=== PATIENT | male | born 1965 | race Caucasian/White ===

== ENCOUNTER 2017-08-12 15:41 | Emergency (ER) | payer OTHER ==
[~2017-08-12] VITALS: Ht 174 cm; Wt 51.0 kg
[~2017-08-12 15:41] MED LIST: ALBUAER19 INH; FLNIN NAE; LRT5 PO; TRVHP PO; [UNRECOGNIZED DRUG - CODE] TOP; viramune PO
[2017-08-12 15:47] VITALS: TEMP 37; Ht 174 cm; Wt 51.0 kg
[2017-08-12] MEDS ORDERED: ASPIRIN 81 MG CHEW PO STA (16:27)
[2017-08-12 16:39] VITALS: O2SAT 99
[2017-08-12 16:45] LABS: BASO % 0.4 %; BASO ABS # 0.02 K/uL (0-0.2); EOS ABS # 0.05 K/uL (0-0.5); HEMATOCRIT 52.9 % (42-52); HEMOGLOBIN 18.5 g/dL (14.0-18.0); IG# 0.01 K/uL (0.00-0.02); LYMPH % 26.2 %; LYMPH ABS # 1.36 K/uL (1.2-3.4); MEAN CELL VOLUME 105.2 fL (80-100); MEAN CORPUSCULAR HEMOGLOBIN 36.8 pg (25-34); MEAN PLATELET VOLUME 8.7 fL (7.4-10.4); MONO % 7.9 %; MONO ABS # 0.41 K/uL (0.11-0.59); NEUT % 64.3 %; NEUT ABS # 3.35 K/uL (1.4-6.5); PLATELET COUNT 146 K/uL (130-400); RED CELL DISTRIBUTION WIDTH CV 11.8 % (11.5-14.5); RED CELL DISTRIBUTION WIDTH SD 45.5 fL (36.4-46.3)
[2017-08-12] MEDS ORDERED: HYDR-5688 PO (16:49)
[2017-08-12] MEDS ORDERED: ELVI1TAB2 PO (16:49)
[2017-08-12 17:03] LABS: BLOOD UREA NITROGEN 7 mg/dl (7-18); CALCIUM 8.5 mg/dl (8.5-10.1); CARBON DIOXIDE 31 mmol/L (21-32); CREATININE 0.78 mg/dl (0.60-1.40); GLUCOSE 85 mg/dl (70-99); POTASSIUM 3.7 mmol/L (3.5-5.1); SODIUM 140 mmol/L (136-145)
--- NOTE | 2017-08-12 17:13 | DIAGNOSTIC IMAGING REPORT ---
CHEST 2 VIEWS ROUTINE CLINICAL HISTORY: 52 years-old Male presenting with left-sided cp. TECHNIQUE: PA and lateral views of the chest were obtained. COMPARISON: None. FINDINGS: Cardiomediastinal silhouette normal. Hyperinflation of the lungs. No focal opacity. No large effusion or pneumothorax. Osseous structures normal. Upper abdomen normal. IMPRESSION: 1. No acute cardiopulmonary disease. Electronically signed by: Mu Braxton M.D. 08/12/2017 5:12 PM Dictated Date/Time: 08/12/2017 5:11 PM
--- NOTE | 2017-08-12 18:13 | EMERGENCY ROOM VISIT NOTE ---
History Report prepared by Itzel: Isak North Under the Supervision of: Dr. Erik Lopez M.D. First contact with patient: 16:10 Chief Complaint: CARDIAC ASSESSMENT Stated Complaint: HEART PAIN, FEELS LIKE SOMEONE IS SQUEEZING IT History of Present Illness The patient is a 52 year old male who presents to the Emergency Room with complaints of constant chest pain beginning seven hours ago. He describes his pain as a "tightness". The patient is HIV positive and notes that he was recently placed on a new medication for this 2-3 weeks ago. He is compliant with medications, and notes that his viral load is undetectable. He noticed his symptoms this morning while waking up. The patient also complains of a faint generalized rash, but thinks this could be related to his detergent. He denies shortness of breath, leg pain, or cough. He notes that he had a cardiac work-up last year. The patient denies recent travel. He does not use supplemental hormones. He denies recent surgery. Source of History: patient Onset: seven hours ago Position: chest Quality: other ("tightness") Timing: constant Associated Symptoms: + rash (generalized), No cough, No SOB Note: Negative: leg pain. Review of Systems See HPI for pertinent positives and negatives. A total of ten systems were reviewed and were otherwise negative. Past Medical & Surgical Medical Problems: (1) Chronic back pain (2) Chronic leg pain (3) Degenerative disc disease (4) HIV positive Family History No pertinent family history stated. Social History Smoking Status: Current Every Day Smoker Occupation Status: employed Current/Historical Medications Scheduled Axbkbdwzykpp-Cxenwqopse-Wikiqs (Stribild), 1 TAB PO DAILY Scheduled PRN Hydrocodone/Acetaminophen 5MG/325MG ([place] 5MG/325MG), 1 TABLET PO Q8 PRN for Pain Allergies Coded Allergies: Ciprofloxacin (Verified Allergy, Intermediate, Hives, 08/12/17) Sulfa Antibiotics (Verified Allergy, Unknown, Severe hives, 08/12/17) Physical Exam Vital Signs Date Time Temp Pulse Resp B/P (MAP) Pulse Ox O2 Delivery O2 Flow Rate FiO2 08/12/17 20:46 80 16 150/90 97 08/12/17 20:04 60 08/12/17 19:50 58 16 156/87 98 Room Air 08/12/17 17:35 77 15 169/103 100 Room Air 08/12/17 16:39 99 Room Air 08/12/17 16:05 74 08/12/17 15:47 37.0 82 20 184/108 99 Room Air Physical Exam Physical Exam GENERAL: He is oriented to person, place, and time. He appears well-developed and well-nourished. He does not appear distressed. ____ HENT: Exam performed. Head: Normocephalic and atraumatic. Right Ear: External ear normal. No mastoid tenderness. Left Ear: External ear normal. No mastoid tenderness. Mouth/Throat: The oropharynx is clear and moist. No trismus in the jaw. No dental abscesses or uvula swelling. No oropharyngeal exudate or tonsillar abscesses. ____ EYES: Conjunctivae and EOM are normal. Pupils are equal, round, and reactive to light. Right eye exhibits no discharge. Left eye exhibits no discharge. No scleral icterus. ____ NECK: Normal range of motion. Neck supple. No JVD present. No spinous process tenderness present. No carotid bruit present. No rigidity. No tracheal deviation and normal range of motion present. No Brudzinski's sign and no Kernig 's sign noted. ____ CV: Normal rate, regular rhythm, normal heart sounds and intact distal pulses. There is no peripheral edema. Palpable radial pulses bue. ____ PULM/CHEST: Effort normal and breath sounds normal. No respiratory distress. No stridor. He has no wheezes. He has no rales. Chest Wall: He exhibits no tenderness. ____ ABD: The abdomen is soft. Bowel sounds are normal. He has no distension. No mass is present. There is no tenderness. There is no rebound, no guarding, no Forte's sign and no tenderness at McBurney's point. Rovsig negative MUSC/SKEL: Normal range of motion. There is no peripheral edema, tenderness or deformity. LYMPH: No cervical adenopathy. ____ NEURO: He is alert and oriented to person, place, and time. He has normal strength. No cranial nerve deficit or sensory deficit. Coordination and gait normal. GCS eye subscore is 4. GCS verbal subscore is 5. GCS motor subscore is 6. Cerebellar tests wnl. ____ SKIN: Skin is warm and dry. He is not diaphoretic. Small circular plaques over the lower extremities and trunk without fluctuance or erythema. Looks like contact dermatitis. ____ PSYCH: He has a normal mood and affect. His behavior is normal. Judgment and thought content normal. ____ Medical Decision & Procedures ER Provider Diagnostic Interpretation: Radiology results as stated below per my review and radiologist interpretation: CHEST 2 VIEWS ROUTINE FINDINGS: Cardiomediastinal silhouette normal. Hyperinflation of the lungs. No focal opacity. No large effusion or pneumothorax. Osseous structures normal. Upper abdomen normal. IMPRESSION: 1. No acute cardiopulmonary disease. Electronically signed by: Mu Braxton M.D. 08/12/2017 5:12 PM Laboratory Results 08/12/17 16:40 Red Blood Count 5.03, Mean Corpuscular Volume 105.2, Mean Corpuscular Hemoglobin 36.8, Mean Corpuscular Hemoglobin Concent 35.0, Mean Platelet Volume 8.7, Neutrophils (%) (Auto) 64.3, Lymphocytes (%) (Auto) 26.2, Monocytes (%) ( Auto) 7.9, Eosinophils (%) (Auto) 1.0, Basophils (%) (Auto) 0.4, Neutrophils # ( Auto) 3.35, Lymphocytes # (Auto) 1.36, Monocytes # (Auto) 0.41, Eosinophils # ( Auto) 0.05, Basophils # (Auto) 0.02 08/12/17 16:40 Test 08/12/17 16:36 08/12/17 16:40 08/12/17 19:38 D-Dimer 470 ug/L FEU (0-500) White Blood Count 5.20 K/uL (4.8-10.8) Red Blood Count 5.03 M/uL (4.7-6.1) Hemoglobin 18.5 g/dL (14.0-18.0) Hematocrit 52.9 % (42-52) Mean Corpuscular Volume 105.2 fL (80-100) Mean Corpuscular Hemoglobin 36.8 pg (25-34) Mean Corpuscular Hemoglobin Concent 35.0 g/dl (32-36) Platelet Count 146 K/uL (130-400) Mean Platelet Volume 8.7 fL (7.4-10.4) Neutrophils (%) (Auto) 64.3 % Lymphocytes (%) (Auto) 26.2 % Monocytes (%) (Auto) 7.9 % Eosinophils (%) (Auto) 1.0 % Basophils (%) (Auto) 0.4 % Neutrophils # (Auto) 3.35 K/uL (1.4-6.5) Lymphocytes # (Auto) 1.36 K/uL (1.2-3.4) Monocytes # (Auto) 0.41 K/uL (0.11-0.59) Eosinophils # (Auto) 0.05 K/uL (0-0.5) Basophils # (Auto) 0.02 K/uL (0-0.2) RDW Standard Deviation 45.5 fL (36.4-46.3) RDW Coefficient of Variation 11.8 % (11.5-14.5) Immature Granulocyte % (Auto) 0.2 % Immature Granulocyte # (Auto) 0.01 K/uL (0.00-0.02) Anion Gap 4.0 mmol/L (3-11) Est Creatinine Clear Calc Drug Dose 79.0 ml/min Estimated GFR () 119.4 Estimated GFR (Non- 103.1 BUN/Creatinine Ratio 9.5 (10-20) Calcium Level 8.5 mg/dl (8.5-10.1) Troponin I < 0.015 ng/ml (0-0.045) Laboratory results reviewed by me Medications Administered Medications (Trade) Dose Ordered Sig/Barney Route Start Time Stop Time Status Last Admin Dose Admin Aspirin (Aspirin Chew) 324 mg NOW STAT PO 08/12/17 16:27 08/12/17 16:28 DC 08/12/17 16:31 324 MG ECG Per My Interpretation Indication: chest pain Rate (beats per minute): 79 Rhythm: sinus rhythm Findings: other (WA, QRS, and QTC intervals within normal limits. No ST elevations or depressions. ) ED Course 1613: The patient was evaluated in room B4B. A complete history and physical exam was performed. 1626: Ordered Aspirin Chew 324 mg PO. EMR reviewed and patient had a negative echo in 2013. No history of having stress test per the patient. 1811: Vital signs stable. EKG chest x-ray and labs within normal limits. Patient was offered inpatient observation for rule out ACS, however he declined. He states he prefers to have repeat troponin drawn and if negative will follow-up with cardiology for stress test. Repeat troponin to be drawn at 1940. Medical Decision Vital signs stable. EKG chest x-ray and labs within normal limits. Patient was offered inpatient observation for rule out ACS, however he declined. He states he prefers to have repeat troponin drawn and if negative will follow-up with cardiology for stress test. Repeat troponin to be drawn at 1940. Medication Reconcilliation Current Medication List: was personally reviewed by me Blood Pressure Screening Patient's blood pressure: Elevated blood pressure Blood pressure disposition: Referred to PCP Impression Primary Impression: Chest pain Scribe Attestation The scribe's documentation has been prepared under my direction and personally reviewed by me in its entirety. I confirm that the note above accurately reflects all work, treatment, procedures, and medical decision making performed by me. Departure Information Referrals Milton Luna D.O. (PCP) Patient Instructions My [facility] Problem Qualifiers Primary Impression: Chest pain Chest pain type: unspecified Qualified Codes: R07.9 - Chest pain, unspecified
--- NOTE | 2017-08-12 18:51 | EMERGENCY ROOM VISIT NOTE ---
ED Visit Note First contact with patient: 18:51 Patient signed out to me at change of shift. History and physical verified by me. Patient is awaiting repeat troponin and EKG at 1740. The patient's repeat EKG shows a normal sinus rhythm at a normal EKG no ST elevation or depression and it is unchanged from the previous one. In addition the patient also had a d -dimer drawn because I feel he is at high risk of blood clots due to the increase hemoglobin level however his d-dimer is normal. I stressed to the patient that he is a high risk patient due to the medications he is on as well as the elevation in his hemoglobin however he wishes to be discharged home for follow-up with cardiology. I stressed no strenuous activity until that follow- up and to return to the emergency department if his symptoms worsen. His repeat troponin is 0. The patient has demonstrated no significant defect in the decision-making capacity to make choices. The encounter had a good level of communication with language the patient can easily understand. I feel trust was present and conveyed that our action/intentions were the best interest of the patient. The patient was given all relevant information and reiterated the explained risks and benefits. The patient explained the reasoning for refusing treatment clearly. The patient possesses and expresses a set of values and goals, the ability to communicate and understand, and an ability to reason and deliberate. Despite acting emphatically, attentively and with the utmost patient's the patient declined further treatment. I offered options, negotiated, and explored every reasonable choice. I must respect the patient's autonomy and that they feel that their choices are best for them despite the associated risks of leaving without completing the evaluation. The patient was informed about the findings as listed above. All questions were answered and he was pleased with the treatment. Return instructions were outlined and the patient was discharged in stable condition. Problem List Medical Problems: (1) Chronic back pain Status: Chronic (2) Chronic leg pain Status: Chronic (3) Degenerative disc disease Status: Chronic (4) HIV positive Status: Chronic Current/Historical Medications Scheduled Wnxugamwqppc-Osbzjmzxqq-Cobcnw (Stribild), 1 TAB PO DAILY Scheduled PRN Hydrocodone/Acetaminophen 5MG/325MG ([place] 5MG/325MG), 1 TABLET PO Q8 PRN for Pain Allergies Coded Allergies: Ciprofloxacin (Verified Allergy, Intermediate, Hives, 08/12/17) Sulfa Antibiotics (Verified Allergy, Unknown, Severe hives, 08/12/17) Vital Signs Date Time Temp Pulse Resp B/P (MAP) Pulse Ox O2 Delivery O2 Flow Rate FiO2 08/12/17 19:50 58 16 156/87 98 Room Air 08/12/17 17:35 77 15 169/103 100 Room Air 08/12/17 16:39 99 Room Air 08/12/17 16:05 74 08/12/17 15:47 37.0 82 20 184/108 99 Room Air Laboratory Results 08/12/17 16:40 Red Blood Count 5.03, Mean Corpuscular Volume 105.2, Mean Corpuscular Hemoglobin 36.8, Mean Corpuscular Hemoglobin Concent 35.0, Mean Platelet Volume 8.7, Neutrophils (%) (Auto) 64.3, Lymphocytes (%) (Auto) 26.2, Monocytes (%) ( Auto) 7.9, Eosinophils (%) (Auto) 1.0, Basophils (%) (Auto) 0.4, Neutrophils # ( Auto) 3.35, Lymphocytes # (Auto) 1.36, Monocytes # (Auto) 0.41, Eosinophils # ( Auto) 0.05, Basophils # (Auto) 0.02 08/12/17 16:40 Test 08/12/17 16:36 08/12/17 16:40 08/12/17 19:38 D-Dimer 470 ug/L FEU (0-500) White Blood Count 5.20 K/uL (4.8-10.8) Red Blood Count 5.03 M/uL (4.7-6.1) Hemoglobin 18.5 g/dL (14.0-18.0) Hematocrit 52.9 % (42-52) Mean Corpuscular Volume 105.2 fL (80-100) Mean Corpuscular Hemoglobin 36.8 pg (25-34) Mean Corpuscular Hemoglobin Concent 35.0 g/dl (32-36) Platelet Count 146 K/uL (130-400) Mean Platelet Volume 8.7 fL (7.4-10.4) Neutrophils (%) (Auto) 64.3 % Lymphocytes (%) (Auto) 26.2 % Monocytes (%) (Auto) 7.9 % Eosinophils (%) (Auto) 1.0 % Basophils (%) (Auto) 0.4 % Neutrophils # (Auto) 3.35 K/uL (1.4-6.5) Lymphocytes # (Auto) 1.36 K/uL (1.2-3.4) Monocytes # (Auto) 0.41 K/uL (0.11-0.59) Eosinophils # (Auto) 0.05 K/uL (0-0.5) Basophils # (Auto) 0.02 K/uL (0-0.2) RDW Standard Deviation 45.5 fL (36.4-46.3) RDW Coefficient of Variation 11.8 % (11.5-14.5) Immature Granulocyte % (Auto) 0.2 % Immature Granulocyte # (Auto) 0.01 K/uL (0.00-0.02) Anion Gap 4.0 mmol/L (3-11) Est Creatinine Clear Calc Drug Dose 79.0 ml/min Estimated GFR () 119.4 Estimated GFR (Non- 103.1 BUN/Creatinine Ratio 9.5 (10-20) Calcium Level 8.5 mg/dl (8.5-10.1) Medications Administered Medications (Trade) Dose Ordered Sig/Barney Route Start Time Stop Time Status Last Admin Dose Admin Aspirin (Aspirin Chew) 324 mg NOW STAT PO 08/12/17 16:27 08/12/17 16:28 DC 08/12/17 16:31 324 MG Departure Information Referrals Milton Luna D.O. (PCP) Patient Instructions My [facility]
[2017-08-12 20:46] VITALS: BP 150/90; PULSE 80; O2SAT 97
== END 2017-08-12 20:46 | disposition home or self-care (01) ==
LOC: C.EDB 15:43
DX: R07.9 Chest pain, unspecified (principal); M54.9 Dorsalgia, unspecified; M79.606 Pain in leg, unspecified; G89.29 Other chronic pain; B20 Human immunodeficiency virus [HIV] disease; F17.210 Nicotine dependence, cigarettes, uncomplicated; Z79.899 Other long term (current) drug therapy; Z88.1 Allergy status to other antibiotic agents

== ENCOUNTER 2018-07-17 12:37 | Inpatient (IN) ==
[2018-07-17] MEDS ORDERED: SODIUM CHLORIDE 0.9% 1000ML 1,000 ML IV SCH (13:00)
[2018-07-17] MEDS ORDERED: MoRPHine SULFATE 4 MG/ML 1 ML CARP\\VIAL IV STA ×2 (13:26→14:54)
[2018-07-17 13:28] LABS: Basophils # (auto) 0.01 K/uL (0-0.2); Basophils % (auto) 0.2 %; Eosinophils # (auto) 0.09 K/uL (0-0.5); Eosinophils % (auto) 1.6 %; Hematocrit (blood only) 53.7 % (42-52); Hemoglobin 19.6 g/dL (14.0-18.0); Immature Granulocytes # (auto) 0.01 K/uL (0.00-0.02); Immature Granulocytes % (auto) 0.2 %; Lymphocytes % (auto) 27.4 %; Mean Corpuscular Hgb Conc 36.5 g/dL (32-36); Mean Platelet Volume 8.6 fL (7.4-10.4); Monocytes # (auto) 0.59 K/uL (0.11-0.59); Monocytes % (auto) 10.8 %; Neutrophils # (auto) 3.27 K/uL (1.4-6.5); Neutrophils % (auto) 59.8 %; Platelet Count 142 K/uL (130-400); RDW Coefficient of Variation 13.5 % (11.5-14.5); RDW Standard Deviation 48.5 fL (36.4-46.3); Red Blood Count 5.37 M/uL (4.7-6.1); White Blood Count 5.47 K/uL (4.8-10.8)
[2018-07-17 13:44] LABS: Albumin Level 2.7 gm/dl (3.4-5.0); BUN Creatinine Ratio 7.3 (10-20); Calcium 8.3 mg/dl (8.5-10.1); Creatinine Clr Calc Pharmacy 80.5 ml/min; Est GFR (African American) 122.6; Est GFR (Non-African American) 105.8; Potassium 3.1 mmol/L (3.5-5.1)
[2018-07-17 13:47] LABS: Albumin Globulin Ratio 0.5 (0.9-2); Bilirubin,Total 0.9 mg/dl (0.2-1); Globulin 5.8 gm/dl (2.5-4.0); Total Protein 8.5 gm/dl (6.4-8.2)
--- NOTE | 2018-07-17 14:13 | Ultrasound Report ---
US venous doppler LE RT CLINICAL HISTORY: pain rle PAIN. EDEMA. COMPARISON STUDY: No previous studies for comparison. FINDINGS: Real-time and color flow Doppler imaging were performed. Flow was seen within the femoral, popliteal and calf veins with no intraluminal thrombus demonstrated. The saphenous vein is patent. IMPRESSION: No evidence of deep venous thrombosis. The above report was generated using voice recognition software. It may contain grammatical, syntax or spelling errors. Electronically signed by: Gustavo Ryan M.D. 07/17/2018 2:12 PM
--- NOTE | 2018-07-17 14:40 | Ultrasound Report ---
US arterial duplex LE RT CLINICAL HISTORY: r toe black COMPARISON STUDY: Outside hospital ankle-brachial index 06/30/2018. FINDINGS: The right left ankle-brachial index measured 1.1. Normal velocities and triphasic waveforms within the right common femoral artery and proximal to mid superficial femoral artery. A long segmen t of moderate atherosclerotic plaque within the distal superficial femoral artery with associated maria isabel vated peak systolic velocities which measure up to 307 cm/s. This is consistent with hemodynamically significant stenosis. No arterial occlusion. There are monophasic low velocity waveforms seen within the right popliteal artery and calf arteries due to the upstream stenosis. There are also low velocit y monophasic waveforms seen within the dorsalis pedis artery. IMPRESSION: A long segment of hemodynamically significant stenosis seen within the distal right supe rficial femoral artery due to the moderate atherosclerotic plaque. No evidence for arterial occlusion . Electronically signed by: Amari Robins M.D. 07/17/2018 2:39 PM
[2018-07-17 15:28] LABS: Partial Thromboplastin Time 27.5 Seconds (21.0-31.0); Prothrombin Time 10.7 Seconds (9.0-12.0)
[2018-07-17] MEDS ORDERED: HEPARIN SOD (PORCINE) 1000 UNIT/ML 10 ML VIAL IV STA (15:35)
[2018-07-17] MEDS ORDERED: HEPARIN STANDARD DEXTROSE 25,000 UNITS/500 ML IV SCH (15:45)
[2018-07-17] MEDS ORDERED: OPTIRAY 320 125ml IV PRN (17:01)
--- NOTE | 2018-07-17 17:02 | Emergency Department Note ---
Entered by Frankie Spencer acting as a scribe for Cezar Stephen DO History of Present Illness General Chief complaint: Foot Injury/Pain Stated complaint: NUMBNESS, PAIN IN BOTH FEET Source: patient History of Present Illness Provider complaint: foot pain Onset (ago): week(s) 1 Location: foot (bilateral) Radiation: other (left lower extremity from knee to foot) Pain Consistency: + other (worsening) Maximum Pain Intensity: 10 Current Pain Intensity: 7 Quality: + other (pain) Associated symptoms: + other (discoloration of big toe) The patient is a 53 year old male who presents to the Emergency Room with complaints of bilateral foot pain that has been worsening over the past month. The patient reports that the pain on his left leg ranges from his knee to his foot and states that the pain on his right leg is just in his right foot, but is worse in severity than the left. He states that he has had many tests done at his PCP's office where they found a blood clot. He reports that last night he could not walk and reports that the big toe on his right foot is very painful and discolored. He rates his pain as a 7/10 in severity. He reports that he has a cyst in his right foot as well. The patient admits to being a smoker and states he smokes about a half a pack a day. Home Medications Home Medications Medication Instructions Recorded Confirmed Type [id number]-[id number]-tenofo disop 1 tab PO HS 05/30/18 07/17/18 History [Stribild] hydrocodone-acetaminophen 1 tab PO Q8H PRN 05/30/18 07/17/18 History aspirin 81 mg PO QAM 07/17/18 07/17/18 History cyanocobalamin (vitamin B-12) 1,000 mcg PO DAILY 07/17/18 07/17/18 History gabapentin 100 mg PO TID 07/17/18 07/17/18 History Allergies Allergy/AdvReac Type Severity Reaction Status Date / Time Sulfa (Sulfonamide Allergy Severe Severe Verified 07/17/18 14:14 Antibiotics) hives Cipro Allergy Intermediate Hives Verified 08/12/17 16:46 ciprofloxacin Allergy Intermediate Hives Verified 07/17/18 14:14 Past Med/Surg History Medical History Tobacco abuse (Chronic) Chronic leg pain (Chronic) Chronic back pain (Chronic) HIV positive (Chronic) Surgical History H/O inguinal hernia repair (Chronic) Social History Preferred Language: Korean Feels Safe at Home: Yes Smoking Status: Current every day smoker Review of Systems See HPI for pertinent positives & negatives. and A total of 10 systems reviewed and were otherwise negative Physical Exam Vital Signs Vital Signs - 24 hr 07/17/18 12:39 07/17/18 13:46 07/17/18 15:00 Temperature 37.0 C Temperature Source Oral Sepsis Recent Fever Within 48 Hours No Sepsis New/Unexplained Change in Mental Status No Sepsis Action Taken by Nursing No Action Required Pulse Rate 109 H Pulse Rate [Finger] 87 80 Pulse Rhythm [Finger] Pulse Strength Normal Pulse Strength [Finger] Respiratory Rate 20 18 18 Respiratory Effort / Characteristics Non-Labored Spontaneous Non-Labored Spontaneous Non-Labored Spontaneous Respiratory Depth Normal Normal Normal Respiratory Pattern Regular Regular Blood Pressure 143/89 H Blood Pressure [Left Arm] 157/93 H 136/91 Blood Pressure Mean 107 Blood Pressure Mean [Left Arm] 114 106 Blood Pressure Position Sitting Blood Pressure Position [Left Arm] Sitting Sitting Pulse Oximetry 100 97 100 Oxygen Delivery Method Room Air Room Air Room Air 07/17/18 16:00 Temperature Temperature Source Sepsis Recent Fever Within 48 Hours Sepsis New/Unexplained Change in Mental Status Sepsis Action Taken by Nursing Pulse Rate Pulse Rate [Finger] 86 Pulse Rhythm [Finger] Regular Pulse Strength Pulse Strength [Finger] Normal Respiratory Rate 20 Respiratory Effort / Characteristics Non-Labored Spontaneous Respiratory Depth Normal Respiratory Pattern Blood Pressure Blood Pressure [Left Arm] 169/103 H Blood Pressure Mean Blood Pressure Mean [Left Arm] 125 Blood Pressure Position Blood Pressure Position [Left Arm] Pulse Oximetry 98 Oxygen Delivery Method Nasal Cannula GENERAL: Sitting up in bed, alert, disheveled and cachectic appearing, well nourished, no distress, non-toxic EYE EXAM: normal conjunctiva. PERRL and EOM's grossly intact. OROPHARYNX: no exudate, no erythema, lips, buccal mucosa, and tongue normal and mucous membranes are moist NECK: supple, no nuchal rigidity, no adenopathy, non-tender LUNGS: Clear to auscultation. Normal chest wall mechanics HEART: no murmurs, S1 normal and S2 normal ABDOMEN: abdomen soft, non-tender, normo-active bowel, sounds, no masses, no rebound or guarding. BACK: Back is symmetrical on inspection and there is no deformity, no midline tenderness, no CVA tenderness. SKIN: no rashes and no bruising UPPER EXTREMITIES: upper extremities are grossly normal. LOWER EXTREMITIES: No pitting edema. Full active and passive ROM of all joints. Feet warm to touch. Right toe with purple discoloration on plantar surface. Right PT 2/4, right DP 0/4. Calves equal bilaterally. NEURO EXAM: Normal sensorium, cranial nerves II-XII grossly intact, normal speech, no gross weakness of arms, no gross weakness of legs. Course ED COURSE: Vital signs were reviewed and showed the patient is hypertensive. The patients medical record was reviewed The above diagnostic studies were performed and reviewed. ED treatments and interventions as stated above. 1250: The patient was evaluated in room C12A. A complete history and physical examination was performed. 1454: I updated the patient. 1458: I reviewed the patient's case with Breanna Bernal. He said to put the patient on Heparin and have him follow up. 1520: I reviewed the patient's case with Efe Rg PA-C. She will evaluate the patient for further management. 1530: Upon reevaluation, the patient is resting comfortably. I discussed my findings with the patient and she understands and agrees with the treatment plan. Based on the patients age, coexisting illnesses, exam and lab findings the decision to treat as an inpatient was made. The patient remained stable while under my care. The patient will be evaluated for further management. Consultations Consultation #1: Efe Rg PA-C. Time: 15:20 Administered Medications Heparin Sodium/Dextrose (Heparin Sodium/Dextrose) 25,000 units in 500 mls @ 17 mls/hr IV .Q24H [facility]; Protocol Stop: 08/16/18 15:44 Last Admin: 07/17/18 15:48 Dose: 850 units/hr, 17 mls/hr Documented by: [id number] Cosigned by: [id number] Ioversol (Optiray 320 125ml) 120 ml IV ONCE PRN PRN Reason: Interaction Checking Stop: 07/21/18 17:00 Last Admin: 07/17/18 17:01 Dose: 120 ml Documented by: [id number] Discontinued Medications Heparin Sodium (Porcine) (Heparin Iv Bolus) 4,000 units IV NOW STA Stop: 07/17/18 15:36 Last Admin: 07/17/18 15:48 Dose: 4,000 units Documented by: [id number] Cosigned by: [id number] Heparin Sodium/Dextrose () 1 ea IV NOW STA; Protocol Stop: 07/17/18 15:02 Last Admin: 07/17/18 15:51 Dose: Not Given Documented by: [id number] Sodium Chloride (Nss 1000ml) 1,000 mls @ 999 mls/hr IV .Q1H1M KP Stop: 07/17/18 14:00 Last Infusion: 07/17/18 15:00 Dose: 0 mls/hr Documented by: [id number] Admin: 07/17/18 13:46 Dose: 999 mls/hr Documented by: [id number] Morphine Sulfate (Morphine Sulfate) 3 mg IV NOW STA Stop: 07/17/18 13:27 Last Admin: 07/17/18 13:46 Dose: 3 mg Documented by: [id number] Morphine Sulfate (Morphine Sulfate) 4 mg IV NOW STA Stop: 07/17/18 14:55 Last Admin: 07/17/18 14:59 Dose: 4 mg Documented by: [id number] Medical Decision Making Differential Diagnosis Differential diagnosis: Etiologies such as DVT, musculoskeletal, infection, joint effusion, trauma, lymphedema, idiopathic, CHF, as well as others were entertained. Medical Records Attestation: I reviewed the patient's medical records. Home Medications Current Medication List: was personally reviewed by me Laboratory Data Attestation: I reviewed the patient's lab results. Result diagrams: 07/17/18 13:15 07/17/18 13:15 Lab Results 07/17/18 07/17/18 07/17/18 Range/Units 13:15 13:15 13:15 WBC 5.47 (4.8-10.8) K/uL RBC 5.37 (4.7-6.1) M/uL Hgb 19.6 H (14.0-18.0) g/dL Hct 53.7 H (42-52) % MCV 100.0 (80-100) fL MCH 36.5 H (25-34) pg MCHC 36.5 H (32-36) g/dL RDW Std Deviation 48.5 H (36.4-46.3) fL RDW Coeff of Taylor 13.5 (11.5-14.5) % Plt Count 142 (130-400) K/uL MPV 8.6 (7.4-10.4) fL Immature Gran % (Auto) 0.2 % Neut % (Auto) 59.8 % Lymph % (Auto) 27.4 % Gonzales % (Auto) 10.8 % Eos % (Auto) 1.6 % Baso % (Auto) 0.2 % Immature Gran # (Auto) 0.01 (0.00-0.02) K/uL Neut # (Auto) 3.27 (1.4-6.5) K/uL Lymph # (Auto) 1.50 (1.2-3.4) K/uL Gonzales # (Auto) 0.59 (0.11-0.59) K/uL Eos # (Auto) 0.09 (0-0.5) K/uL Baso # (Auto) 0.01 (0-0.2) K/uL PT 10.7 (9.0-12.0) Seconds INR 1.0 (0.9-1.1) APTT 27.5 (21.0-31.0) Seconds PTT Ratio 1.0 Sodium 136 (136-145) mmol/L Potassium 3.1 L (3.5-5.1) mmol/L Chloride 100 (98-107) mmol/L Carbon Dioxide 31 (21-32) mmol/L Anion Gap 5.0 (3-11) BUN 5 L (7-18) mg/dl Creatinine 0.72 (0.6-1.4) mg/dl Est Cr Clr Drug Dosing 80.5 ml/min Est GFR ( Amer) 122.6 Est GFR (Non-Af Amer) 105.8 BUN/Creatinine Ratio 7.3 L (10-20) Glucose 88 (70-99) mg/dl Calcium 8.3 L (8.5-10.1) mg/dl Total Bilirubin 0.9 (0.2-1) mg/dl AST 34 (15-37) U/L ALT 22 (12-78) U/L Alkaline Phosphatase 94 (45-117) U/L Total Protein 8.5 H (6.4-8.2) gm/dl Albumin 2.7 L (3.4-5.0) gm/dl Globulin 5.8 H (2.5-4.0) gm/dl Albumin/Globulin Ratio 0.5 L (0.9-2) Lipase 96 (73-393) U/L Imaging Data Radiologist's Impression: Radiology results as stated below per my review and the radiologist's interpretation: US venous doppler LE RT CLINICAL HISTORY: pain rle PAIN. EDEMA. COMPARISON STUDY: No previous studies for comparison. FINDINGS: Real-time and color flow Doppler imaging were performed. Flow was seen within the femoral, popliteal and calf veins with no intraluminal thrombus demonstrated. The saphenous vein is patent. IMPRESSION: No evidence of deep venous thrombosis. The above report was generated using voice recognition software. It may contain grammatical, syntax or spelling errors. Electronically signed by: Gustavo Ryan M.D. 07/17/2018 2:12 PM US arterial duplex LE RT CLINICAL HISTORY: r toe black COMPARISON STUDY: Outside hospital ankle-brachial index 06/30/2018. FINDINGS: The right left ankle-brachial index measured 1.1. Normal velocities and triphasic waveforms within the right common femoral artery and proximal to mid superficial femoral artery. A long segment of moderate atherosclerotic plaque within the distal superficial femoral artery with associated elevated peak systolic velocities which measure up to 307 cm/s. This is consistent with hemodynamically significant stenosis. No arterial occlusion. There are monophasic low velocity waveforms seen within the right popliteal artery and calf arteries due to the upstream stenosis. There are also low velocity monophasic waveforms seen within the dorsalis pedis artery. IMPRESSION: A long segment of hemodynamically significant stenosis seen within the distal right superficial femoral artery due to the moderate atherosclerotic plaque. No evidence for arterial occlusion. Electronically signed by: Amari Robins M.D. 07/17/2018 2:39 PM Blood Pressure Blood Pressure Findings: Elevated blood pressure Blood Pressure Disposition: further management by hospitalist LINA Narrative Patient is a 53-year-old male who presents the ER for severe pain in bilateral lower extremities. He was referred in by the PCP. Initially for the past month has been having severe pain in the left lower extremity which has migrated to the right lower extremity. There is a questionable posterior tibial occlusion of the left lower extremity from imaging performed as an outpatient several days ago. He notes that his pain is significant worsening of his right lower extremity. Ultrasound was performed and showed plaque in the right femoral. These findings were discussed with Dr. Maya. He recommended heparin. Patient was given a heparin bolus IV and placed on heparin drip IV. Pulses were difficult to find but were eventually appreciated with Doppler. Duplex was negative. Patient was updated bedside. Discussed with the hospitalist patient was admitted for arterial clots and atherosclerosis in the right lower extremity which I do favor is likely causing discoloration/ischemia of the right first toe. Impression & Plan Posterior tibial artery insufficiency, Chronic leg pain, Superficial femoral artery occlusion Critical Care Time I have personally spent 35 minutes of critical care time in the direct management of this patient. This includes bedside care, interpretation of diagnostic studies, and testing, discussion with consultants, patient, and family members, and other required patient management activities. This 35 minutes is in excess of all separately billable procedures. Critical Care Time: Yes Total Critical Care Time: 35 Discharge Plan Visit Data Chief Complaint: Foot Injury/Pain Stated Complaint: NUMBNESS, PAIN IN BOTH FEET ED Provider: Cezar Stephen Discharge Problem: Posterior tibial artery insufficiency, Chronic leg pain, Superficial femoral artery occlusion Forms Stand Alone Forms: My [facility] Prescriptions Prescriptions: No Action hydrocodone-acetaminophen 5-325 mg tablet 1 tab PO Q8H PRN (Reason: Pain) RF: 0 Stribild [phone] mg tablet 1 tab PO HS RF: 0 aspirin 81 mg Tablet,Delayed Release (Dr/Ec) 81 mg PO QAM RF: 0 gabapentin 100 mg capsule 100 mg PO TID RF: 0 cyanocobalamin (vitamin B-12) 500 mcg Tablet 1,000 mcg PO DAILY RF: 0 Discharge Problem: Chronic leg pain Qualifiers: Laterality: bilateral Qualified Code(s): M79.604 - Pain in right leg The scribe's documentation has been prepared under my direction and personally reviewed by me in its entirety. I confirm that the note above accurately reflects all work, treatment, procedures, and medical decision making performed by me.
--- NOTE | 2018-07-17 17:16 | CT Scan Report ---
Study: CT angiogram of the chest HISTORY: Peripheral arterial embolization FINDINGS: Mild atherosclerotic change thoracic aorta. Mild dilatation root of the aorta demonstrate m aximum transaxial dimensions of 3.7 x 3.4 cm. No evidence for dissection. Vasculature enhances appropriately. Lung parenchyma is considered negative for focal infiltrative danny nge. Moderate degenerative changes thoracic spine. IMPRESSION: 1. Mild dilatation of the aorta at 3.7 x 3.4 cm. 2. The arterial structures of the chest are otherwise unremarkable. 3. Lungs are clear. Electronically signed by: Gustavo Ryan M.D. 07/17/2018 5:13 PM
--- NOTE | 2018-07-17 17:17 | History & Physical Report ---
Date of Service July 17, 2018 Assessment & Plan (1) Femoral artery stenosis, right: -Admit to telemetry -Patient presenting from home with reports of increasing right great toe pain; recent outpatient workup as outlined in HPI -In the ED, patient underwent arterial Doppler of RLE that demonstrated hemodynamically significant right superficial artery stenosis -Noted patient is a lifelong smoker -Vascular surgery notified by ED -Started on IV heparin which will be continued -Every hour Doppler checks for pulses -CTA abd/pelvis ordered by vascular showin. Moderate to severe stenosis (extending for 2.5 cm) of the mid to distal right superficial femoral artery. Age indeterminate occlusion of the right anterior tibial artery with distal reconstitution of the dorsalis pedis. 2. Occlusion of the left anterior tibial and posterior tibial arteries with partial reconstitution of the dorsalis pedis. 3. 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 4. Moderate plaque within the abdominal aorta. Normal caliber abdominal aorta. -Further management as per vascular surgery (2) HIV positive: -No acute issues -Continue Stribild (3) DVT prophylaxis: -On IV heparin as above History of Present Illness Chief Complaint: Right Great Toe Pain Primary Care Provider: Milton Luna DO 53-year-old male who presents to the ED with right great toe pain. Patient reports intermittent numbness to the plantar surfaces of both of his feet for the past several months. At the end of May, patient twisted his left ankle and had worsening numbness of the left foot including the left calf. Patient also had persistent pain in left ankle and underwent an MRI as an outpatient that demonstrated the posterior tibial artery thrombosis. Patient then underwent arterial Dopplers on 06/30 that demonstrated normal flow in the right lower extremity and mild PAD in the left lower extremity. Patient reports that yesterday he developed severe pain in his right great toe and some discoloration that has been progressively been getting worse. He therefore presented to the ED for further evaluation. Patient reports he otherwise has been feeling well recently. He denies chest pain, shortness breath, palpitations. No lightheadedness, dizziness, diaphoresis, syncopal events. He reports some mild nausea today and poor appetite but denies associated abdominal pain, vomiting, diarrhea. No other recent illnesses, fevers, chills. He denies any urinary symptoms. In the ED, venous Doppler is negative for DVT. Arterial duplex demonstrates a long segment of hemodynamically significant stenosis within the distal right superficial femoral artery. Dr. Maya was notified by the ED and patient was started on IV heparin. Allergies Allergy/AdvReac Type Severity Reaction Status Date / Time Sulfa (Sulfonamide Allergy Severe Severe Verified 07/17/18 14:14 Antibiotics) hives Cipro Allergy Intermediate Hives Verified 08/12/17 16:46 ciprofloxacin Allergy Intermediate Hives Verified 07/17/18 14:14 Home Medications Home Medications Medication Instructions Recorded Confirmed Type [id number] disop 1 tab PO HS 05/30/18 07/17/18 History [Stribild] hydrocodone-acetaminophen 1 tab PO Q8H PRN 05/30/18 07/17/18 History aspirin 81 mg PO QAM 07/17/18 07/17/18 History cyanocobalamin (vitamin B-12) 1,000 mcg PO DAILY 07/17/18 07/17/18 History gabapentin 100 mg PO TID 07/17/18 07/17/18 History Past Med/Surg History Medical History Tobacco abuse (Chronic) Chronic leg pain (Chronic) Chronic back pain (Chronic) HIV positive (Chronic) Surgical History H/O inguinal hernia repair (Chronic) Family History Other Unknown family medical history Social History Preferred Language: Cambodian Communication Ability: Effective Press Puller Required: No Beliefs That Will Affect Care: None Current Living Situation: Alone Other Information That Helps Us Care for You: No Feels Safe at Home: Yes Safety Concerns: Feels Safe At This Time Smoking Status: Current every day smoker Hx Alcohol Use: Yes Hx Substance Use: No Review of Systems ROS per HPI, all other systems reviewed and negative Physical Exam Vital Signs (Past 24 Hours): Last Vital Signs Temp 37.0 C 07/17/18 12:39 Pulse 86 07/17/18 16:00 Resp 20 07/17/18 16:00 BP 169/103 H 07/17/18 16:00 Pulse Ox 98 07/17/18 16:00 Constitutional: + thin vitals as above Eyes: PERRL, conjunctivae normal, anicteric sclerae ENMT: external ear and nose normal, oropharynx normal Respiratory: normal respiratory effort, lungs clear to auscultation Cardiovascular: Rate/Rhythm: regular rate and regular rhythm Vessels: + abnormal peripheral pulses (BL pedal pulses obtained by doppler; palpable right posterior tibial pulse ) Extremities: no edema Gastrointestinal (Abdomen): normal bowel sounds, soft, nontender, no hepatosplenomegaly Musculoskeletal: Extremities: strength 5/5 throughout and + cyanosis (plantar aspect of right great toe appears dusky / purple ); no clubbing Skin: no rashes, warm and dry Neurologic: PERRL, EOMI, accommodation nl, no face palsy, no dysarthria Psychiatric: A+Ox3, euthymic affect Results & Data Laboratory Results Laboratory Last Values WBC 5.47 K/uL (4.8-10.8) 07/17/18 13:15 RBC 5.37 M/uL (4.7-6.1) 07/17/18 13:15 Hgb 19.6 g/dL (14.0-18.0) H 07/17/18 13:15 Hct 53.7 % (42-52) H 07/17/18 13:15 MCV 100.0 fL (80-100) 07/17/18 13:15 MCH 36.5 pg (25-34) H 07/17/18 13:15 MCHC 36.5 g/dL (32-36) H 07/17/18 13:15 RDW Std Deviation 48.5 fL (36.4-46.3) H 07/17/18 13:15 RDW Coeff of Taylor 13.5 % (11.5-14.5) 07/17/18 13:15 Plt Count 142 K/uL (130-400) 07/17/18 13:15 MPV 8.6 fL (7.4-10.4) 07/17/18 13:15 Immature Gran % (Auto) 0.2 % 07/17/18 13:15 Neut % (Auto) 59.8 % 07/17/18 13:15 Lymph % (Auto) 27.4 % 07/17/18 13:15 Motley % (Auto) 10.8 % 07/17/18 13:15 Eos % (Auto) 1.6 % 07/17/18 13:15 Baso % (Auto) 0.2 % 07/17/18 13:15 Immature Gran # (Auto) 0.01 K/uL (0.00-0.02) 07/17/18 13:15 Neut # (Auto) 3.27 K/uL (1.4-6.5) 07/17/18 13:15 Lymph # (Auto) 1.50 K/uL (1.2-3.4) 07/17/18 13:15 Motley # (Auto) 0.59 K/uL (0.11-0.59) 07/17/18 13:15 Eos # (Auto) 0.09 K/uL (0-0.5) 07/17/18 13:15 Baso # (Auto) 0.01 K/uL (0-0.2) 07/17/18 13:15 PT 10.7 Seconds (9.0-12.0) 07/17/18 13:15 INR 1.0 (0.9-1.1) 07/17/18 13:15 APTT 27.5 Seconds (21.0-31.0) 07/17/18 13:15 PTT Ratio 1.0 07/17/18 13:15 Sodium 136 mmol/L (136-145) 07/17/18 13:15 Potassium 3.1 mmol/L (3.5-5.1) L 07/17/18 13:15 Chloride 100 mmol/L (98-107) 07/17/18 13:15 Carbon Dioxide 31 mmol/L (21-32) 07/17/18 13:15 Anion Gap 5.0 (3-11) 07/17/18 13:15 BUN 5 mg/dl (7-18) L 07/17/18 13:15 Creatinine 0.72 mg/dl (0.6-1.4) 07/17/18 13:15 Est Cr Clr Drug Dosing 80.5 ml/min 07/17/18 13:15 Est GFR ( Amer) 122.6 07/17/18 13:15 Est GFR (Non-Af Amer) 105.8 07/17/18 13:15 BUN/Creatinine Ratio 7.3 (10-20) L 07/17/18 13:15 Glucose 88 mg/dl (70-99) 07/17/18 13:15 Calcium 8.3 mg/dl (8.5-10.1) L 07/17/18 13:15 Total Bilirubin 0.9 mg/dl (0.2-1) 07/17/18 13:15 AST 34 U/L (15-37) 07/17/18 13:15 ALT 22 U/L (12-78) 07/17/18 13:15 Alkaline Phosphatase 94 U/L (45-117) 07/17/18 13:15 Total Protein 8.5 gm/dl (6.4-8.2) H 07/17/18 13:15 Albumin 2.7 gm/dl (3.4-5.0) L 07/17/18 13:15 Globulin 5.8 gm/dl (2.5-4.0) H 07/17/18 13:15 Albumin/Globulin Ratio 0.5 (0.9-2) L 07/17/18 13:15 Lipase 96 U/L (73-393) 07/17/18 13:15 Urine Color Yellow 07/17/18 17:30 Urine Appearance Clear (Clear) 07/17/18 17:30 Urine pH 7.5 (4.5-7.5) 07/17/18 17:30 Ur Specific [place] 1.026 (1.000-1.030) 07/17/18 17:30 Urine Protein Negative (Negative) 07/17/18 17:30 Urine Glucose (UA) Negative (Negative) 07/17/18 17:30 Urine Ketones Negative (Negative) 07/17/18 17:30 Urine Blood Trace (Negative) H 07/17/18 17:30 Urine Nitrite Positive (Negative) H 07/17/18 17:30 Urine Bilirubin Negative (Negative) 07/17/18 17:30 Urine Urobilinogen Negative (Negative) 07/17/18 17:30 Ur Leukocyte Esterase 1+ (Negative) H 07/17/18 17:30 Urine WBC (Auto) 1-5 /hpf (0-5) 07/17/18 17:30 Urine RBC (Auto) 10-30 /hpf (0-4) H 07/17/18 17:30 U Hyaline Cast (Auto) 0 /lpf (0-5) 07/17/18 17:30 U Epithel Cells (Auto) 10-20 /lpf (0-5) H 07/17/18 17:30 Urine Bacteria (Auto) 4+ (Negative) H 07/17/18 17:30 Diagnostic Findings RLE ARTERIAL DOPPLER IMPRESSION: A long segment of hemodynamically significant stenosis seen within the distal right superficial femoral artery due to the mode rate atherosclerotic plaque. No evidence for arterial occlusion. BLLE VENOUS DOPPLER IMPRESSION: No evidence of deep venous thrombosis. CTA ABD/PELVIS IMPRESSION: 1. Moderate to severe stenosis (extending for 2.5 cm) of the mid to distal right superficial femoral artery. Age indeterminate occlusion of the right anterior tibial artery with distal reconstitution of the dorsalis pedis. 2. Occlusion of the left anterior tibial and posterior tibial arteries with partial reconstitution of the dorsalis pedis. 3. 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 4. Moderate plaque within the abdominal aorta. Normal caliber abdominal aorta. CTA CHEST IMPRESSION: 1. Mild dilatation of the aorta at 3.7 x 3.4 cm. 2. The arterial structures of the chest are otherwise unremarkable. 3. Lungs are clear. Code Status & VTE Plan VTE Prophylaxis Plan VTE Prophylaxis will be ordered: Yes Supervising Physician Co-Signing Physician Notes Attending addendum The patient was seen and examined in emergency room in presence of the Has been complaining of pain in the right lower extremity especially the big toe Bruised discoloration of the big toe with possible superficial femoral artery stenosis has on Doppler Denies any chest pain and/or shortness of breath with it No abdominal pain nausea or vomiting Has been a heavy smoker Full examination Moderate distress at rest due to pain Hemodynamically stable Chest-decreased breath sounds bilaterally without any wheezing and/or crackles Heart-S1-S2 regular, no murmur appreciated Abdomen-benign Extremities-right great toe is bluish in color, right posterior tibialis palpable, left anterior and posterior tibial right anterior tibial not palpable but flow was detected by Doppler Left lower extremity is cool to touch [employer]ING [employer]-alert, awake and oriented x3 Admission labs and imaging studies reviewed Is going to be monitored by Dr. Maya, the vascular surgeon Agree with assessment and plan as outlined above by Stefany Nagel
[2018-07-17 17:43] LABS: Appearance Urine Clear (Clear); Bacteria Urine Automated 4+ (Negative); Bilirubin Urine Negative (Negative); Blood Urine Trace (Negative); Cast Urine Automated 0 /lpf (0-5); Color Urine Yellow; Glucose Urine UA Negative (Negative); Ketones Urine Negative (Negative); Leukocyte Esterase Urine 1+ (Negative); Nitrite Urine Positive (Negative); Protein Urine Negative (Negative); Specific Gravity Urine 1.026 (1.000-1.030); Urobilinogen Urine Negative (Negative); pH Urine 7.5 (4.5-7.5)
[2018-07-17] MEDS: HYDROmorphone INJ 0.5 MG/0.5 ML SYR IV PRN ×2 (17:50→21:49)
--- NOTE | 2018-07-17 17:51 | CT Scan Report ---
CT ANGIOGRAPHY OF THE ABDOMEN AND PELVIS WITH BILATERAL LOWER EXTREMITY RUNOFF CLINICAL HISTORY: Distal embolization. COMPARISON STUDY: CT of the abdomen and pelvis January 30, 2016. Right lower extremity arterial Do ppler ultrasound July 17, 2018. TECHNIQUE: Helical axial images of the abdomen and pelvis and both lower extremities were obtained du ring arterial phase following intravenous injection of 120 cc Optiray 320 IV. Sagittal and coronal re constructed reviewed as well as maximal intensity projections on an independent 3-D workstation. Auto mated exposure control was performed for dose reduction and study was performed according to ZEE brown. Please note that the CT of the chest will be reported separately. FINDINGS: A 3 mm left lower lobe nodule is unchanged since CT of January 30, 2016. This is benign. Mild splenomegaly is unchanged. Arterial phase images of the liver, spleen, adrenal glands and pancre as are unremarkable. There is mild gallbladder distention without pericholecystic infiltration. There is no evidence for a bowel obstruction. Caliber and wall thickness of small and large bowel are norm al. There is no ascites. No pneumatosis, free air or portal venous gas is present. There is moderate atherosclerotic plaque within the abdominal aorta. There is severe stenosis of the proximal celiac axis due to the median arcuate ligament. There is poststenotic dilatation of the delio ac axis which measures 1.1 cm in caliber. Superior mesenteric and inferior mesenteric arteries are pa tent. Bilateral renal arteries are patent. The caliber of the abdominal aorta is normal. The right common external iliac and common iliac arteries are patent. There is asymmetric venous fill ing within the right lower extremity which makes evaluation difficult. There is mild stenosis of the right common femoral artery. There is moderate to severe stenosis of the mid right superficial femora l artery that extends for 2.5 cm. The right popliteal artery is patent. There is occlusion of the pro ximal right anterior tibial artery with suspected occlusion of the right dorsalis pedis with partial distal reconstitution. The right peroneal and posterior tibial arteries are patent. No intraluminal t hrombus is identified although evaluation of the small arteries of the feet is difficult. The left common iliac and external iliac arteries are patent with mild plaque. There are mild multifo afshan stenoses within the left superficial femoral and popliteal arteries. There is occlusion of the le ft anterior tibial and posterior tibial arteries. The left peroneal artery is patent. There is distal reconstitution of the left dorsalis pedis. IMPRESSION: 1. Moderate to severe stenosis (extending for 2.5 cm) of the mid to distal right superficial femoral artery. Age indeterminate occlusion of the right anterior tibial artery with distal reconstitution of the dorsalis pedis. 2. Occlusion of the left anterior tibial and posterior tibial arteries with partial reconstitution of the dorsalis pedis. 3. 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 4. Moderate plaque within the abdominal aorta. Normal caliber abdominal aorta. Electronically signed by: Yosef Francisco M.D. 07/17/2018 5:50 PM
[2018-07-17] MEDS ORDERED: ACETAMINOPHEN 325 MG TAB PO PRN (18:53)
[2018-07-17] MEDS: NSS + 20MEQ KCL 20 MEQ/1,000 ML BAG IV SCH (20:29)
[2018-07-17] MEDS: POTASSIUM CHLORIDE / WTR 10 MEQ/100 ML PLCT IV SCH ×2 (20:30→21:47)
[2018-07-17] MEDS: GABAPENTIN 100 MG CAP PO SCH (20:31)
[2018-07-17] MEDS ORDERED: [UNRECOGNIZED DRUG - OTHER] PO SCH (21:00)
[2018-07-17 22:04] LABS: Partial Thromboplastin Ratio 1.7
[2018-07-17 22:43] LABS: Partial Thromboplastin Time 45.9 Seconds (21.0-31.0)
[2018-07-17] MEDS ORDERED: HEPARIN IV BOLUS 2,000 UNITS in SYRINGE 0 ML IV ONE (23:15)
[2018-07-18] MEDS: HYDROmorphone INJ 0.5 MG/0.5 ML SYR IV PRN ×2 (01:55→05:55)
[2018-07-18 06:00] LABS: Hematocrit (blood only) 47.5 % (42-52); Hemoglobin 16.4 g/dL (14.0-18.0); Mean Corpuscular Hgb Conc 34.5 g/dL (32-36); Mean Corpuscular Volume 100.8 fL (80-100); Platelet Count 109 K/uL (130-400); RDW Coefficient of Variation 13.4 % (11.5-14.5); RDW Standard Deviation 49.2 fL (36.4-46.3); Red Blood Count 4.71 M/uL (4.7-6.1); White Blood Count 6.44 K/uL (4.8-10.8)
[2018-07-18 06:24] LABS: Calcium 6.9 mg/dl (8.5-10.1); Creatinine Clr Calc Pharmacy 103.3 ml/min; Est GFR (African American) 134.9; Est GFR (Non-African American) 116.4; Potassium 3.7 mmol/L (3.5-5.1)
[2018-07-18 06:44] LABS: Partial Thromboplastin Ratio 2.2; Partial Thromboplastin Time 59.4 Seconds (21.0-31.0)
[2018-07-18] MEDS: GABAPENTIN 100 MG CAP PO SCH ×2 (08:31→13:43)
[2018-07-18] MEDS ORDERED: ASPIRIN 81 MG ECTAB PO SCH (09:00)
[2018-07-18] MEDS ORDERED: CYANOCOBALAMIN 500 MCG TABLET (VITAMIN B-12) PO SCH (09:00)
[2018-07-18] MEDS: NSS + 20MEQ KCL 20 MEQ/1,000 ML BAG IV SCH (09:23)
[2018-07-18] MEDS ORDERED: HYDROmorphone INJ 1 MG/ML SYRINGE IV PRN (09:53)
[2018-07-18] MEDS ORDERED: OXYCODONE/ACETAMINOPHEN 5mg/325mg TAB PO PRN (11:42)
[2018-07-18] MEDS ORDERED: ENOXAPARIN 80 MG/0.8 ML SYR SQ ONE (12:00)
[2018-07-18] MEDS ORDERED: [UNRECOGNIZED DRUG - REMARK] ONE (12:00)
--- NOTE | 2018-07-18 12:52 | Consultation ---
Date of Consultation July 18, 2018 Assessment & Plan (1) Femoral artery stenosis, right: At this point is appears that he may have distal embolization especially to the right foot. He has narrowing of his right superficial femoral artery but the also is atherosclerotic changes of the aorta and iliac segments. In view of the multilevel presentation of the plaque I would recommend that we treat him with anticoagulation at this point. If his foot worsens and we have evidence of re-embolization the then we may need to treat the stenosis of the right SFA. We will see him in the office in 4-6 weeks for follow-up. Thank you very much for letting us participate in the care of this patient. History of Present Illness Reason for Consultation: Bilateral foot pain and numbness. Attending Physician: Chris Nagel MD History of Present Illness This is a 53-year-old white gentleman who developed pain in his left foot after he suffered a sprained ankle. The pain is subsequently improved but he has numbness of his foot and posterior calf and he now complains of pain in his right great toe and numbness of his right foot. He denies any coldness. He denies any symptoms of claudication. He does not have a car so he ambulates fairly often in good distances. He denies any ulcerations of his lower extremities. He does complain of discoloration of the right great toe. Allergies Allergy/AdvReac Type Severity Reaction Status Date / Time Sulfa (Sulfonamide Allergy Severe Severe Verified 07/17/18 14:14 Antibiotics) hives Cipro Allergy Intermediate Hives Verified 08/12/17 16:46 ciprofloxacin Allergy Intermediate Hives Verified 07/17/18 14:14 Home Medications Home Medications Medication Instructions Recorded Confirmed Type [id number]-yct-[id number]-tenofo disop 1 tab PO HS 05/30/18 07/17/18 History [Stribild] hydrocodone-acetaminophen 1 tab PO Q8H PRN 05/30/18 07/17/18 History aspirin 81 mg PO QAM 07/17/18 07/17/18 History cyanocobalamin (vitamin B-12) 1,000 mcg PO DAILY 07/17/18 07/17/18 History gabapentin 100 mg PO TID 07/17/18 07/17/18 History Patient History Medical History Tobacco abuse (Chronic) Chronic leg pain (Chronic) Chronic back pain (Chronic) HIV positive (Chronic) Surgical History H/O inguinal hernia repair (Chronic) Family History Other Unknown family medical history Social History Communication Ability: Effective Beliefs That Will Affect Care: None marital status: Single Current Living Situation: Alone Other Information That Helps Us Care for You: No Feels Safe at Home: Yes Safety Concerns: Feels Safe At This Time Smoking Status: Current every day smoker Hx Alcohol Use: Yes Hx Substance Use: No Review of Systems Review of 10 systems was accomplished. The only positive findings are as the HPI. Physical Exam Vital Signs (Past 24 Hours): Last Vital Signs Temp 36.6 C 07/18/18 11:34 Pulse 60 07/18/18 11:34 Resp 18 07/18/18 11:34 BP 126/77 07/18/18 11:34 Pulse Ox 97 07/18/18 11:34 Constitutional: well developed and well nourished; no acute distress Respiratory: normal respiratory effort; no respiratory distress Cardiovascular: Rate/Rhythm: regular rate and regular rhythm Vessels: abdominal aortic pulse present (Not widened), femoral pulses present (+2 bilaterally), posterior tibial pulses present (Not palpable bilaterally but Doppler bilaterally.) and dorsalis pedis pulses present (Not palpable bilaterally could not hear a Doppler study the foot.); no carotid bruit Extremities: normal capillary refill (Slightly decreased bilaterally) There is a fairly good Doppler signal heard in the digital artery between the great toe and second toe on both feet. Gastrointestinal (Abdomen): Inspection/Auscultation: abdomen normal to inspection; abdomen not distended Percussion/Palpation: abdomen soft; abdomen nontender and no pulsatile mass Skin: There is discoloration present the tip of the right great toe. No ulcerations are noted of either the foot.. Neurologic: normal touch/pain/proprioception, CN's II-XI intact bilaterally and moves all extremities; no focal motor deficits Psychiatric: Orientation: alert and oriented x 3 Results & Data Diagnostic Findings CTA ABD/PELVIS IMPRESSION: 1. Moderate to severe stenosis (extending for 2.5 cm) of the mid to distal right superficial femoral artery. Age indeterminate occlusion of the right anterior tibial artery with distal reconstitution of the dorsalis pedis. 2. Occlusion of the left anterior tibial and posterior tibial arteries with partial reconstitution of the dorsalis pedis. 3. 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 4. Moderate plaque within the abdominal aorta. Normal caliber abdominal aorta. CTA CHEST IMPRESSION: 1. Mild dilatation of the aorta at 3.7 x 3.4 cm. 2. The arterial structures of the chest are otherwise unremarkable. 3. Lungs are clear.
--- NOTE | 2018-07-18 13:13 | Hospitalist Progress Note ---
Date of Service July 18, 2018 Assessment & Plan (1) Femoral artery stenosis, right: Has ischemic toe mainly involving right great toe with black discoloration involving the anterior aspect Right posterior tibialis palpable and anterior tibial is detectable with Doppler CTA showed: 1. Moderate to severe stenosis (extending for 2.5 cm) of the mid to distal right superficial femoral artery. Age indeterminate occlusion of the right anterior tibial artery with distal reconstitution of the dorsalis pedis. 2. Occlusion of the left anterior tibial and posterior tibial arteries with partial reconstitution of the dorsalis pedis. 3. 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 4. Moderate plaque within the abdominal aorta. Normal caliber abdominal aorta. Evaluated by vascular surgery Has been on heparin and was advised to have Coumadin Right great toe shows slight improvement Will discharge home this afternoon on Lovenox and Coumadin Appointment with vascular surgery as an outpatient (2) HIV positive: -No acute issues -Continue Stribild (3) DVT prophylaxis: -On IV heparin as above -We will give subcu Lovenox and oral Coumadin -Coagulation clinic follow-up on Tuesday Subjective Is a 53-year-old male with significant past medical history of positive for HIV, chronic leg pain and chronic back pain and tobacco use disorder was admitted with ischemic toe on the right side and noted to have stenotic disease of the superficial femoral artery on the right side. 07/18 The patient was seen and examined in the telemetry unit Still complains to have severe pain involving the right great toe The discoloration seems to be improving since admission Denies any other symptoms Physical Exam Vital Signs (Past 24 Hours): Last Vital Signs Temp 36.6 C 07/18/18 11:34 Pulse 60 07/18/18 11:34 Resp 18 07/18/18 11:34 BP 126/77 07/18/18 11:34 Pulse Ox 97 07/18/18 11:34 Physical Exam: Moderate distress at rest with leg pain most of the right side Constitutional: + ill appearing and + thin Eyes: PERRL, conjunctivae normal, anicteric sclerae ENMT: external ear and nose normal, oropharynx normal Neck: trachea midline, no thyromegaly Respiratory: normal respiratory effort, lungs clear to auscultation Cardiovascular: Rate/Rhythm: regular rate and regular rhythm Vessels: + abnormal peripheral pulses (BL pedal pulses obtained by doppler; palpable right posterior tibial pulse ) Extremities: no edema Gastrointestinal (Abdomen): normal bowel sounds, soft, nontender, no hepatosplenomegaly Inspection/Auscultation: normal bowel sounds Musculoskeletal: Extremities: strength 5/5 throughout and + cyanosis (plantar aspect of right great toe appears dusky / purple ); no clubbing Bluish discoloration involving the right great toe. Warm right foot with tenderness on local palpation and movement is painful Left foot feels cold and numb on examination. Both sided tibialis posterior and tibialis anterior wire detected with arterial Doppler. Skin: no rashes, warm and dry Neurologic: PERRL, EOMI, accommodation nl, no face palsy, no dysarthria Psychiatric: A+Ox3, euthymic affect Results & Data Laboratory Results Short CBC 07/17/18 07/18/18 Range/Units 13:15 05:36 WBC 5.47 6.44 (4.8-10.8) K/uL Hgb 19.6 H 16.4 D (14.0-18.0) g/dL Hct 53.7 H 47.5 (42-52) % Plt Count 142 109 L (130-400) K/uL BMP 07/17/18 07/18/18 13:15 05:36 Sodium 136 133 L Potassium 3.1 L 3.7 D Chloride 100 102 Carbon Dioxide 31 28 BUN 5 L 4 L Creatinine 0.72 0.57 L Glucose 88 93 Calcium 8.3 L 6.9 L D Liver Function 07/17/18 Range/Units 13:15 Total Bilirubin 0.9 (0.2-1) mg/dl AST 34 (15-37) U/L ALT 22 (12-78) U/L Alkaline Phosphatase 94 (45-117) U/L Albumin 2.7 L (3.4-5.0) gm/dl Urine 07/17/18 Range/Units 17:30 Urine Color Yellow Urine Appearance Clear (Clear) Urine pH 7.5 (4.5-7.5) Ur Specific [place] 1.026 (1.000-1.030) Urine Protein Negative (Negative) Urine Glucose (UA) Negative (Negative) Diagnostic Findings CTA;1. Mild dilatation of the aorta at 3.7 x 3.4 cm. 2. The arterial structures of the chest are otherwise unremarkable. 3. Lungs are clear. CTA of abdomen and run ofF; 1. Moderate to severe stenosis (extending for 2.5 cm) of the mid to distal right superficial femoral artery. Age indeterminate occlusion of the right anterior tibial artery with distal reconstitution of the dorsalis pedis. 2. Occlusion of the left anterior tibial and posterior tibial arteries with partial reconstitution of the dorsalis pedis. 3. 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 4. Moderate plaque within the abdominal aorta. Normal caliber abdominal aorta. Arterial Doppler:A long segment of hemodynamically significant stenosis seen within the distal right superficial femoral artery due to the moderate atherosclerotic plaque. No evidence for arterial occlusion. Medications Administered Current Inpatient Medications Acetaminophen (Tylenol) 650 mg PO Q4H PRN PRN Reason: Pain or Fever Stop: 08/16/18 18:52 Aspirin (Ecotrin Ectab) 81 mg PO QAM [facility] Stop: 08/17/18 08:59 Last Admin: 07/18/18 08:30 Dose: 81 mg Documented by: Cyanocobalamin (Vitamin B-12) 1,000 mcg PO DAILY KP Stop: 08/17/18 08:59 Last Admin: 07/18/18 08:30 Dose: 1,000 mcg Documented by: Gabapentin (Neurontin) 100 mg PO TID KP Stop: 08/16/18 20:59 Last Admin: 07/18/18 08:31 Dose: 100 mg Documented by: Hydromorphone HCl (Dilaudid) 1 mg IV Q4H PRN PRN Reason: Pain Stop: 07/31/18 16:53 Last Admin: 07/18/18 10:52 Dose: 1 mg Documented by: Potassium Chloride/Sodium Chloride (Normal Saline W/20 Meq Kcl) 20 meq in 1,000 mls @ 75 mls/hr IV .[id number] KP Stop: 07/19/18 10:59 Last Admin: 07/18/18 09:23 Dose: 75 mls/hr Documented by: Ioversol (Optiray 320 125ml) 120 ml IV ONCE PRN PRN Reason: Interaction Checking Stop: 07/21/18 17:00 Last Admin: 07/17/18 17:01 Dose: 120 ml Documented by: Miscellaneous (Order Awaiting Action) 1 ea N/A QS [facility] Stop: 08/17/18 00:00 Last Admin: 07/17/18 23:26 Dose: Not Given Documented by: Oxycodone/Acetaminophen (Percocet 5mg/325mg) 1 tab PO Q4H PRN PRN Reason: Pain Stop: 08/01/18 11:41 Warfarin Sodium (Coumadin) 5 mg PO DAILY@1600 KP Stop: 08/17/18 15:59
[2018-07-18] MEDS ORDERED: WARFARIN SOD 5 MG TAB PO SCH (16:00)
--- NOTE | 2018-07-19 06:23 | Discharge Summary ---
Date of Service July 20, 2018 Admission HPI Per Admitting Provider 53-year-old male who presents to the ED with right great toe pain. Patient reports intermittent numbness to the plantar surfaces of both of his feet for the past several months. At the end of May, patient twisted his left ankle and had worsening numbness of the left foot including the left calf. Patient also had persistent pain in left ankle and underwent an MRI as an outpatient that demonstrated the posterior tibial artery thrombosis. Patient then underwent arterial Dopplers on 06/30 that demonstrated normal flow in the right lower extremity and mild PAD in the left lower extremity. Patient reports that yesterday he developed severe pain in his right great toe and some discoloration that has been progressively been getting worse. He therefore presented to the ED for further evaluation. Patient reports he otherwise has been feeling well recently. He denies chest pain, shortness breath, palpitations. No lightheadedness, dizziness, diaphoresis, syncopal events. He reports some mild nausea today and poor appetite but denies associated abdominal pain, vomiting, diarrhea. No other recent illnesses, fevers, chills. He denies any urinary symptoms. In the ED, venous Doppler is negative for DVT. Arterial duplex demonstrates a long segment of hemodynamically significant stenosis within the distal right superficial femoral artery. Dr. Maya was notified by the ED and patient was started on IV heparin. Discharge Data Consultations 07/17/18 15:23 Consult Vascular Surgery Stat ED Decision to Admit Stat
--- NOTE | 2018-07-19 09:07 | Discharge Summary ---
Date of Service July 19, 2018 Admission HPI Per Admitting Provider 53-year-old male who presents to the ED with right great toe pain. Patient reports intermittent numbness to the plantar surfaces of both of his feet for the past several months. At the end of May, patient twisted his left ankle and had worsening numbness of the left foot including the left calf. Patient also had persistent pain in left ankle and underwent an MRI as an outpatient that demonstrated the posterior tibial artery thrombosis. Patient then underwent arterial Dopplers on 06/30 that demonstrated normal flow in the right lower extremity and mild PAD in the left lower extremity. Patient reports that yesterday he developed severe pain in his right great toe and some discoloration that has been progressively been getting worse. He therefore presented to the ED for further evaluation. Patient reports he otherwise has been feeling well recently. He denies chest pain, shortness breath, palpitations. No lightheadedness, dizziness, diaphoresis, syncopal events. He reports some mild nausea today and poor appetite but denies associated abdominal pain, vomiting, diarrhea. No other recent illnesses, fevers, chills. He denies any urinary symptoms. In the ED, venous Doppler is negative for DVT. Arterial duplex demonstrates a long segment of hemodynamically significant stenosis within the distal right superficial femoral artery. Dr. Maya was notified by the ED and patient was started on IV heparin. Admission Exam Per Admitting Provider Vital Signs (Past 24 Hours): Last Vital Signs Temp 37.0 C 07/17/18 12:39 Pulse 86 07/17/18 16:00 Resp 20 07/17/18 16:00 BP 169/103 H 07/17/18 16:00 Pulse Ox 98 07/17/18 16:00 Constitutional: + thin vitals as above Eyes: PERRL, conjunctivae normal, anicteric sclerae ENMT: external ear and nose normal, oropharynx normal Respiratory: normal respiratory effort, lungs clear to auscultation Cardiovascular: Rate/Rhythm: regular rate and regular rhythm Vessels: + abnormal peripheral pulses (BL pedal pulses obtained by doppler; palpable right posterior tibial pulse ) Extremities: no edema Gastrointestinal (Abdomen): normal bowel sounds, soft, nontender, no hepatosplenomegaly Musculoskeletal: Extremities: strength 5/5 throughout and + cyanosis (plantar aspect of right great toe appears dusky / purple ); no clubbing Skin: no rashes, warm and dry Neurologic: PERRL, EOMI, accommodation nl, no face palsy, no dysarthria Psychiatric: A+Ox3, euthymic affect Principal Diagnosis Ischemic toe on the right side, peripheral vascular disease, tobacco use disorder Discharge Exam Constitutional + ill appearing and + thin Eyes PERRL, conjunctivae normal, anicteric sclerae ENMT external ear and nose normal, oropharynx normal Neck trachea midline, no thyromegaly Respiratory normal respiratory effort, lungs clear to auscultation Cardiovascular Rate/Rhythm: regular rate and regular rhythm Vessels: + abnormal peripheral pulses (BL pedal pulses obtained by doppler; palpable right posterior tibial pulse ) Extremities: no edema Gastrointestinal (Abdomen) normal bowel sounds, soft, nontender, no hepatosplenomegaly Inspection/Auscultation: normal bowel sounds Musculoskeletal Extremities: strength 5/5 throughout and + cyanosis (plantar aspect of right great toe appears dusky / purple ); no clubbing Skin no rashes, warm and dry Neurologic PERRL, EOMI, accommodation nl, no face palsy, no dysarthria Psychiatric A+Ox3, euthymic affect Discharge Data Allergies Allergy/AdvReac Type Severity Reaction Status Date / Time Sulfa (Sulfonamide Allergy Severe Severe Verified 07/17/18 14:14 Antibiotics) hives Cipro Allergy Intermediate Hives Verified 08/12/17 16:46 ciprofloxacin Allergy Intermediate Hives Verified 07/17/18 14:14 Consultations 07/17/18 15:23 Consult Vascular Surgery Stat ED Decision to Admit Stat Ordered Studies 07/17/18 12:58 US arterial duplex LE RT Stat US venous doppler LE RT Stat 07/17/18 16:25 CT angio abd aorta runof w con Stat CT angio chest wo/w con Stat Hospital Course (1) Femoral artery stenosis, right: Has ischemic toe mainly involving right great toe with black discoloration involving the anterior aspect Right posterior tibialis palpable and anterior tibial is detectable with Doppler CTA showed: 1. Moderate to severe stenosis (extending for 2.5 cm) of the mid to distal right superficial femoral artery. Age indeterminate occlusion of the right anterior tibial artery with distal reconstitution of the dorsalis pedis. 2. Occlusion of the left anterior tibial and posterior tibial arteries with partial reconstitution of the dorsalis pedis. 3. 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 4. Moderate plaque within the abdominal aorta. Normal caliber abdominal aorta. Evaluated by vascular surgery Has been on heparin and was advised to have Coumadin Right great toe shows slight improvement Will discharge home this afternoon on Lovenox and Coumadin Appointment with vascular surgery as an outpatient (2) HIV positive: -No acute issues -Continue Stribild (3) DVT prophylaxis: -On IV heparin as above -We will give subcu Lovenox and oral Coumadin -Coagulation clinic follow-up on Tuesday Total Time Total Time Spent Total Time Spent (In Minutes): 35 minutes Total Time Includes: Examination of the Patient, Discharge Planning, Medication Reconciliation and Communication With Other Providers Discharge Plan Discharge Items Patient Disposition: Home - Self-Care Reason For Visit: ISHCEMIC TOE Discharge Diagnosis: Ischemic toe on the right side, peripheral vascular disease, tobacco use disorder Condition: Fair Discharge Goals: Decrease discomfort, Improve function and Increase independence Activity: Resume your previous activity Non-emergency contact: Primary Care Provider Call non-emergency contact if: you have any medication questions and your symptoms worsen Follow-up/Referrals: Hermelindo Maya MD [Physician] - (Please make an appointment with Dr. Maya as advised) Milton Luna DO [Primary Care Provider] - 07/21/18 11:05 am (Your appointment is with Dr. Zaragoza. Dr. Mckeon has not any opening. He will be followed up with coagulation clinic to check your INR and dose Coumadin accordingly) Diet: Heart Healthy Addtl Provider Instructions: Quit smoking. Continue Lovenox injection and Coumadin daily as advised appointment with Coumadin clinic. On the of this month. The Coumadin clinic will check your INR and decide if you need to have more Lovenox and dose your Coumadin accordingly Prescriptions: New warfarin [Coumadin] 5 mg Tablet 5 mg PO DAILY@1600 Qty: 30 RF: 0 nicotine 21 mg/24 hr patch 24 hour 1 patch TD DAILY Qty: 28 RF: 0 Continued [id number]-[id number] disop [phone] mg tablet 1 tab PO HS RF: 0 aspirin 81 mg Tablet,Delayed Release (Dr/Ec) 81 mg PO QAM RF: 0 gabapentin 100 mg capsule 100 mg PO TID RF: 0 cyanocobalamin (vitamin B-12) 500 mcg Tablet 1,000 mcg PO DAILY RF: 0 hydrocodone-acetaminophen 5-325 mg tablet 1 tab PO Q8H PRN (Reason: Pain) 5 Days Qty: 20 RF: 0 Stand-Alone Forms: [facility] Discharge Orders: Discharge Order (Routine); Ordered 07/18/18 Ordered By: Chris Nagel Admission Data Admit Date/Time: 07/17/18 16:49 Attending Provider: Chris Nagel Admit Provider: Chris Nagel Primary Care Provider: Milton Luna Other Providers: Hermelindo Maya ; Chris Nagel Service: Telemetry Other Interventions: Discharge Summary Assessment (RN) Last Done: 07/18/18 14:48 DC Date/Time DO NOT enter until pt leaves facility: 07/18/18 15:40
== END 2018-07-18 15:40 | disposition home or self-care (01) | DRG 300 ==
LOC: ED 12:37 → 2S 16:49

== ENCOUNTER 2020-10-13 16:25 | Observation (INO) ==
[2020-10-13] MEDS ORDERED: ONDANSETRON INJ 2 MG/ML 2 ML VIAL IV STA (16:47)
[2020-10-13] MEDS ORDERED: MoRPHine SULFATE 2 MG/ML CARP IV STA ×2 (16:47→18:04)
--- NOTE | 2020-10-13 16:49 | Emergency Department Note ---
History of Present Illness General Chief complaint: Leg Injury/Pain Stated complaint: L LEG PAIN, POSSIBLE BLOOD CLOT Time Seen by Provider: 10/13/20 16:36 History of Present Illness Maximum Pain Intensity: 10 This is a 55-year-old male that presents to the emergency department via private vehicle with complaints "left leg pain, possible blood clot". The patient notes that he has been experiencing left lower extremity pain that began last night. No known trauma or injury. He states that it has been worsening since that time and he feels a pressure building in his left calf. He also notes skin color changes to the left lower extremity from a pink color to a black color into rojas at times. He also notes some numbness/tingling left lower extremity. He previously notes that for blood clots in the past he was on Coumadin. Patient denies any fevers, chills, chest pain or shortness of breath. Patient does note a mild headache. Current discomfort at this time in the left lower extremity is a 10/10. Home Medications Medication Instructions Recorded Confirmed Type hydrocodone 5 mg-acetaminophen 325 1 tab PO Q8H PRN 06/20/19 10/13/20 History mg tablet Stribild 1 tab PO HS 10/13/20 10/13/20 History atorvastatin 10 mg PO HS 10/13/20 10/13/20 History cyanocobalamin (vitamin B-12) 1,000 - 2,000 mcg PO QAM 10/13/20 10/13/20 History [Vitamin B-12] gabapentin 600 mg PO TID 10/13/20 10/13/20 History Allergies Allergy/AdvReac Type Severity Reaction Status Date / Time Sulfa (Sulfonamide Allergy Severe Severe Verified 10/13/20 18:33 Antibiotics) hives ciprofloxacin Allergy Intermediate Hives Verified 10/13/20 18:33 Past Med/Surg History Medical History (Updated 10/13/20 @ 23:36 by Juan Penn PA-C) Chronic back pain Chronic leg pain HIV positive Tobacco abuse Surgical History H/O inguinal hernia repair Family History Other Unknown family medical history Social History Smoking Status: Current every day smoker Tobacco Type: Cigarettes Cigarettes Per Day: 10; Hx Alcohol Use: Yes Alcohol type: hard liquor Alcohol Intake Frequency Comment: 1-2 vodka drinks Hx Substance Use: No Preferred Language: [place]alander Communication Ability: Effective Bond Analyst Required: No Beliefs That Will Affect Care: None marital status: Single Current Living Situation: Alone Feels Safe at Home: Yes Assistive Devices: Glasses Review of Systems A total of 10 systems reviewed and were otherwise negative Physical Exam Vital Signs Vital Signs - 24 hr 10/13/20 16:33 10/13/20 18:50 10/13/20 19:44 Temperature 36.5 C Temperature Source Temporal Artery Scan Pulse Rate 97 H 82 Pulse Rate [Right Finger] 100 H Pulse Rate from SpO2 Sensor 83 Pulse Rhythm Regular Pulse Strength Normal Respiratory Rate 18 16 19 Respiratory Effort / Characteristics Non-Labored Spontaneous Non-Labored Accessory Muscle Use Respiratory Depth Normal Normal Blood Pressure 132/82 184/110 H Blood Pressure [Right Arm] 157/123 H Blood Pressure Mean 98 134 Blood Pressure Mean [Right Arm] 134 Pulse Oximetry 93 93 100 Oxygen Delivery Method Room Air Room Air Sepsis Recent Fever Within 48 Hours No Sepsis New/Unexplained Change in Mental Status No Sepsis Action Taken by Nursing No Action Required 10/13/20 20:00 10/13/20 21:00 10/13/20 21:30 Temperature Temperature Source Pulse Rate 79 82 77 Pulse Rate [Right Finger] Pulse Rate from SpO2 Sensor 79 78 73 Pulse Rhythm Pulse Strength Respiratory Rate 15 18 18 Respiratory Effort / Characteristics Respiratory Depth Blood Pressure 152/78 H 156/58 H 123/96 Blood Pressure [Right Arm] Blood Pressure Mean 102 90 105 Blood Pressure Mean [Right Arm] Pulse Oximetry 99 100 100 Oxygen Delivery Method Sepsis Recent Fever Within 48 Hours Sepsis New/Unexplained Change in Mental Status Sepsis Action Taken by Nursing 10/13/20 22:00 10/13/20 22:30 Temperature Temperature Source Pulse Rate 72 71 Pulse Rate [Right Finger] Pulse Rate from SpO2 Sensor 72 Pulse Rhythm Pulse Strength Respiratory Rate 13 15 Respiratory Effort / Characteristics Respiratory Depth Blood Pressure 138/95 143/79 H Blood Pressure [Right Arm] Blood Pressure Mean 109 100 Blood Pressure Mean [Right Arm] Pulse Oximetry 99 Oxygen Delivery Method Sepsis Recent Fever Within 48 Hours Sepsis New/Unexplained Change in Mental Status Sepsis Action Taken by Nursing VITAL SIGNS - Vital signs and nursing notes were reviewed. Stable and afebrile. GENERAL -55-year-old male appearing his stated age who is in no acute distress. Communicates well with provider and answers questions appropriately. SKIN - Without rashes. No meningeal or petechial rash. Mild erythema noted to the left lower extremity without any evidence of cellulitis. There is evidence of mildly engorged/prominent veins noted to the superficial veins of the left medial knee and left distal thigh region. HEAD - NC/AT. EYES - Sclera anicteric. NECK - Neck with FROM. No nuchal rigidity. LUNGS - Chest wall symmetric without accessory muscle use, intercostals retractions, or central cyanosis. Normal vesicular breath sounds CTA B/L. No wheezes, rales, or rhonchi appreciated. CARDIAC - RRR with S1/S2. No murmur, rubs, or gallops appreciated. EXTREMITIES - No clubbing or peripheral cyanosis. No pretibial edema present. Skin as above. Left calf tenderness to palpation. +5/5 strength noted in UE/LE bilaterally. Left dorsalis pedis pulse intact. Cap refill intact of all digits of the left lower extremity. NEUROLOGIC - Cranial nerves II through XII grossly intact. PSYCH - A&Ox3 and cooperates fully with examiner. Pt is very pleasant and interacts well with examiner. Course Administered Medications Heparin Sodium/Dextrose (Heparin Sodium/Dextrose) 25,000 units in 500 mls @ 0.02 mls/hr IV .Q24H [facility]; Protocol Stop: 11/12/20 20:39 Last Admin: 10/13/20 22:46 Dose: 800 units/hr, 16 mls/hr Documented by: [id number] Cosigned by: [id number] Discontinued Medications Heparin Sodium (Porcine) (Heparin Sod (Porcine) 1000 Unit/Ml) 1 units IV NOW ONE Stop: 10/13/20 20:41 Last Admin: 10/13/20 22:48 Dose: 4,000 units Documented by: [id number] Cosigned by: [id number] Hydromorphone HCl (Hydromorphone Inj 0.5 Mg/0.5 Ml Syr) 0.25 mg IV NOW STA Stop: 10/13/20 21:31 Last Admin: 10/13/20 22:50 Dose: 0.25 mg Documented by: [id number] Hydromorphone HCl (Hydromorphone Inj 0.5 Mg/0.5 Ml Syr) Confirm Administered Dose 0.5 mg .ROUTE .STK-MED ONE Stop: 10/13/20 21:01 Last Admin: 10/13/20 21:07 Dose: 0.25 mg Documented by: [id number] Potassium Chloride (K Angelito / Wtr) 10 meq in 100 mls @ 100 mls/hr IV ONE ONE Stop: 10/13/20 20:11 Last Admin: 10/13/20 20:01 Dose: Not Given Documented by: [id number] Ioversol (Optiray 350 500ml) 117 ml IV ONCE ONE Stop: 10/13/20 18:48 Last Admin: 10/13/20 18:49 Dose: 1 ml Documented by: [id number] Morphine Sulfate (Morphine Sulfate 2 Mg/Ml Carp) 2 mg IV NOW STA Stop: 10/13/20 16:48 Last Admin: 10/13/20 17:11 Dose: 2 mg Documented by: [id number] Morphine Sulfate (Morphine Sulfate 2 Mg/Ml Carp) 2 mg IV NOW STA Stop: 10/13/20 18:05 Last Admin: 10/13/20 18:23 Dose: 2 mg Documented by: [id number] Ondansetron HCl (Ondansetron Inj 2 Mg/Ml 2 Ml Vial) 4 mg IV NOW STA Stop: 10/13/20 16:48 Last Admin: 10/13/20 17:11 Dose: 4 mg Documented by: [id number] Potassium Chloride (Potassium Chloride Crtab 20 Meq Tabcr) 40 meq PO NOW STA Stop: 10/13/20 19:56 Last Admin: 10/13/20 21:07 Dose: 40 meq Documented by: [id number] Medical Decision Making Laboratory Data Result diagrams: 10/13/20 17:08 10/13/20 17:08 Lab Results 10/13/20 10/13/20 10/13/20 Range/Units 17:08 17:08 17:08 WBC 6.78 (4.8-10.8) K/uL RBC 4.30 L (4.7-6.1) M/uL Hgb 16.3 (14.0-18.0) g/dL Hct 46.7 (42-52) % MCV 108.6 H (80-100) fL MCH 37.9 H (25-34) pg MCHC 34.9 (32-36) g/dL RDW Std Deviation 48.1 H (36.4-46.3) fL RDW Coeff of Taylor 12.2 (11.5-14.5) % Plt Count 186 (130-400) K/uL MPV 8.6 (7.4-10.4) fL Immature Gran % (Auto) 0.1 % Neut % (Auto) 70.4 % Lymph % (Auto) 19.2 % [place] % (Auto) 8.7 % Eos % (Auto) 1.5 % Baso % (Auto) 0.1 % Neut # (Auto) 4.77 (1.4-6.5) K/uL Lymph # (Auto) 1.30 (1.2-3.4) K/uL [place] # (Auto) 0.59 (0.11-0.59) K/uL Eos # (Auto) 0.10 (0-0.5) K/uL Baso # (Auto) 0.01 (0-0.2) K/uL Immature Gran # (Auto) 0.01 (0.00-0.02) K/uL PT 9.9 (9.0-12.0) Seconds INR 1.0 (0.9-1.1) APTT 25.2 (21.0-31.0) Seconds PTT Ratio 1.0 Sodium 144 (136-145) mmol/L Potassium 2.8 L (3.5-5.1) mmol/L Chloride 104 (98-107) mmol/L Carbon Dioxide 32 (21-32) mmol/L Anion Gap 8.0 (3-11) BUN 4 L (7-18) mg/dl Creatinine 0.77 (0.6-1.4) mg/dl Est Cr Clr Drug Dosing Not Reportable Est GFR ( Amer) 117.6 ml/min Est GFR (Non-Af Amer) 101.4 ml/min BUN/Creatinine Ratio 4.9 L (10-20) Glucose 115 H (70-99) mg/dl Calcium 8.1 L (8.5-10.1) mg/dl Magnesium 2.0 (1.8-2.4) mg/dl Total Bilirubin 0.6 (0.2-1) mg/dl AST 33 (15-37) U/L ALT 17 (12-78) U/L Alkaline Phosphatase 156 H (45-117) U/L Total Creatine Kinase 67 (39-308) U/L Troponin I (0-0.045) ng/ml Total Protein 6.7 (6.4-8.2) gm/dl Albumin 2.4 L (3.4-5.0) gm/dl Globulin 4.3 H (2.5-4.0) gm/dl Albumin/Globulin Ratio 0.6 L (0.9-2) COVID-19 Eval Order SARS-CoV-2 (PCR) (Negative) 10/13/20 10/13/20 10/13/20 Range/Units 19:56 19:56 21:05 WBC (4.8-10.8) K/uL RBC (4.7-6.1) M/uL Hgb (14.0-18.0) g/dL Hct (42-52) % MCV (80-100) fL MCH (25-34) pg MCHC (32-36) g/dL RDW Std Deviation (36.4-46.3) fL RDW Coeff of Taylor (11.5-14.5) % Plt Count (130-400) K/uL MPV (7.4-10.4) fL Immature Gran % (Auto) % Neut % (Auto) % Lymph % (Auto) % [place] % (Auto) % Eos % (Auto) % Baso % (Auto) % Neut # (Auto) (1.4-6.5) K/uL Lymph # (Auto) (1.2-3.4) K/uL [place] # (Auto) (0.11-0.59) K/uL Eos # (Auto) (0-0.5) K/uL Baso # (Auto) (0-0.2) K/uL Immature Gran # (Auto) (0.00-0.02) K/uL PT (9.0-12.0) Seconds INR (0.9-1.1) APTT (21.0-31.0) Seconds PTT Ratio Sodium (136-145) mmol/L Potassium (3.5-5.1) mmol/L Chloride (98-107) mmol/L Carbon Dioxide (21-32) mmol/L Anion Gap (3-11) BUN (7-18) mg/dl Creatinine (0.6-1.4) mg/dl Est Cr Clr Drug Dosing Est GFR ( Amer) ml/min Est GFR (Non-Af Amer) ml/min BUN/Creatinine Ratio (10-20) Glucose (70-99) mg/dl Calcium (8.5-10.1) mg/dl Magnesium (1.8-2.4) mg/dl Total Bilirubin (0.2-1) mg/dl AST (15-37) U/L ALT (12-78) U/L Alkaline Phosphatase (45-117) U/L Total Creatine Kinase (39-308) U/L Troponin I < 0.015 (0-0.045) ng/ml Total Protein (6.4-8.2) gm/dl Albumin (3.4-5.0) gm/dl Globulin (2.5-4.0) gm/dl Albumin/Globulin Ratio (0.9-2) COVID-19 Eval Order Covid19 at [facility] SARS-CoV-2 (PCR) NEGATIVE (Negative) Imaging Data Radiologist's Impression: Venous Doppler Study 10/13/20 16:47 LEFT LOWER EXTREMITY VENOUS DOPPLER CLINICAL HISTORY: L calf pain COMPARISON STUDY: No previous studies for comparison. TECHNIQUE: Sonography of the deep venous system of the left lower extremity was performed. Compression and augmentation were evaluated. FINDINGS: Note is made of occlusive deep venous thrombus within the left femoral, popliteal, anterior tibial, posterior tibial, peroneal veins. Several of these vessels appear expanded. IMPRESSION: Extensive deep venous thrombus within the left lower extremity. ACT 112: Negative or not required by law. Electronically signed by: Yosef Francisco M.D. 10/13/2020 5:45 PM Chest CTA 10/13/20 18:00 CT ANGIOGRAPHY OF THE CHEST, PULMONARY EMBOLUS PROTOCOL CLINICAL HISTORY: extensive DVT, o2 sat 93%, HR 97. COMPARISON STUDY: Chest CT July 17, 2018. TECHNIQUE: Following IV administration of 117 mL of Optiray, helical axial images of the chest were obtained utilizing the pulmonary embolus protocol. Maximal intensity projections and sagittal and coronal reformats were viewed on an independent 3D workstation. IV contrast was administered without complication. Automated exposure control was utilized for the study. A dose lowering technique was utilized adhering to the principles of ALARA. CT DOSE: 298.98 mGy.cm FINDINGS: There are several segmental pulmonary emboli within the bilateral lower lobes. There is no central pulmonary embolus. Size of the heart is normal. Ascending aorta is ectatic, measuring 4 cm. There is no thoracic aortic dissection. Central airways are patent. There is no pulmonary infarct. A few pulmonary nodules are unchanged since CT of July 17, 2018. These are benign given stability. There is bilateral gynecomastia. No enlarged thoracic lymph nodes are present. There are old bilateral rib fractures. Mild dilatation of the proximal celiac axis, measuring 1.2 cm is unchanged since prior CT. IMPRESSION: 1. Several segmental pulmonary emboli within the bilateral lower lobes. 2. No pulmonary infarct. 3. Ectatic ascending aorta, measuring 4 cm. No thoracic aortic dissection. ACT 112: Negative or not required by law. Electronically signed by: Yosef Francisco M.D. 10/13/2020 7:35 PM MDM Narrative Patient was seen and evaluated as above in room A09. Review was performed of nursing notes and vital signs. I did review pertinent previous visits and patien t history. After obtaining a thorough history and physical examination the above work up was performed. Patient presents to us today with atraumatic left lower extremity pain. Patient does have tenderness to palpation of the left calf. No bony tenderness. Vital signs stable. Options of care were discussed with the patient. IV access was established. Labs were drawn. An ultrasound was obtained of the left lower extremity. This shows an extensive deep vein thrombosis within the left lower extremity. CTA obtained of the chest. Several segmental pulmonary emboli within the bilateral lower lobes noted. No pulmonary infarct. Ectatic ascending aorta noted. No dissection. Given the patient's extensive DVT by ultrasound that does fit with the patient's presentation in the setting of PEs I do believe that further evaluation and management the inpatient setting is warranted. Patient also has required IV analgesics for his left calf pain. After thoroughly discussing benefit versus risk with the patient as well as the attending physician, decision was made to proceed with anticoagulation. Patient was given IV heparin. I did confirm order and dosing with the pharmacist. Case also discussed with the hospitalist. Please refer to further documentation regarding his stay. Laboratory studies ago no leukocytosis or concerning anemia. Hypokalemia at 2.8. No other emergent metabolic disturbance. Troponin negative. Covid negative. EKG was reviewed by myself and found to be Normal Sinus Rhythm at a rate of 68 beats per minute and per my interpretation reveals no ST elevation. QTc 421. QRS 94. This was compared EKG of July 17, 2018 and no significant change was found. GCS: 15 In the evaluation and treatment of this patient the following differential diagnoses were entertained: DVT, compartment syndrome, arterial compromise, AL, PE, electrolyte disturbance, among others. Impression & Plan Acute deep vein thrombosis (DVT) of left lower extremity, Pulmonary embolism, bilateral Discharge Plan Visit Data Chief Complaint: Leg Injury/Pain Stated Complaint: L LEG PAIN, POSSIBLE BLOOD CLOT ED Provider: Michael [facility] ED Midlevel Provider: Juan Penn Discharge Problem: Acute deep vein thrombosis (DVT) of left lower extremity, Pulmonary embolism, bilateral Patient Disposition: Admitted As Inpatient Condition: Good Forms Stand Alone Forms: My [facility] [place] Revision3 Prescriptions Prescriptions: No Action hydrocodone-acetaminophen 5-325 mg tablet 1 tab PO Q8H PRN (Reason: Pain) RF: 0 gabapentin 600 mg tablet 600 mg PO TID RF: 0 atorvastatin 10 mg tablet 10 mg PO HS RF: 0 cyanocobalamin (vitamin B-12) [Vitamin B-12] 1,000 mcg Tablet 1,000 - 2,000 mcg PO QAM RF: 0 Stribild [phone] mg tablet 1 tab PO HS RF: 0 Referrals Referrals: Milton Luna, [Primary Care Provider] -
[2020-10-13 17:19] LABS: Basophils # (auto) 0.01 K/uL (0-0.2); Basophils % (auto) 0.1 %; Eosinophils % (auto) 1.5 %; Hematocrit (blood only) 46.7 % (42-52); Hemoglobin 16.3 g/dL (14.0-18.0); Immature Granulocytes # (auto) 0.01 K/uL (0.00-0.02); Immature Granulocytes % (auto) 0.1 %; Lymphocytes % (auto) 19.2 %; Mean Corpuscular Hemoglobin 37.9 pg (25-34); Mean Corpuscular Hgb Conc 34.9 g/dL (32-36); Mean Corpuscular Volume 108.6 fL (80-100); Mean Platelet Volume 8.6 fL (7.4-10.4); Monocytes # (auto) 0.59 K/uL (0.11-0.59); Monocytes % (auto) 8.7 %; Neutrophils # (auto) 4.77 K/uL (1.4-6.5); Neutrophils % (auto) 70.4 %; Platelet Count 186 K/uL (130-400); RDW Coefficient of Variation 12.2 % (11.5-14.5); RDW Standard Deviation 48.1 fL (36.4-46.3); White Blood Count 6.78 K/uL (4.8-10.8)
[2020-10-13 17:38] LABS: Alanine Aminotransferase 17 U/L (12-78); Albumin Level 2.4 gm/dl (3.4-5.0); Aspartate Aminotransferase 33 U/L (15-37); BUN Creatinine Ratio 4.9 (10-20); Blood Urea Nitrogen 4 mg/dl (7-18); Calcium 8.1 mg/dl (8.5-10.1); Carbon Dioxide 32 mmol/L (21-32); Chloride 104 mmol/L (98-107); Est GFR (African American) 117.6 ml/min; Est GFR (Non-African American) 101.4 ml/min; Glucose 115 mg/dl (70-99); Potassium 2.8 mmol/L (3.5-5.1); Sodium 144 mmol/L (136-145)
[2020-10-13 17:41] LABS: Albumin Globulin Ratio 0.6 (0.9-2); Alkaline Phosphatase 156 U/L (45-117); Bilirubin,Total 0.6 mg/dl (0.2-1); Creatine Kinase 67 U/L (39-308); Globulin 4.3 gm/dl (2.5-4.0); Total Protein 6.7 gm/dl (6.4-8.2)
[2020-10-13 17:42] LABS: Partial Thromboplastin Time 25.2 Seconds (21.0-31.0); Prothrombin Time 9.9 Seconds (9.0-12.0)
--- NOTE | 2020-10-13 17:46 | Ultrasound Report ---
LEFT LOWER EXTREMITY VENOUS DOPPLER CLINICAL HISTORY: L calf pain COMPARISON STUDY: No previous studies for comparison. TECHNIQUE: Sonography of the deep venous system of the left lower extremity was performed. Compressi on and augmentation were evaluated. FINDINGS: Note is made of occlusive deep venous thrombus within the left femoral, popliteal, anterior tibial, posterior tibial, peroneal veins. Several of these vessels appear expanded. IMPRESSION: Extensive deep venous thrombus within the left lower extremity. ACT 112: Negative or not required by law. Electronically signed by: Yosef Francisco M.D. 10/13/2020 5:45 PM
[2020-10-13] MEDS ORDERED: OPTIRAY 350 500ml IV ONE (18:47)
[2020-10-13] MEDS ORDERED: POTASSIUM CHLORIDE / WTR 10 MEQ/100 ML PLCT IV ONE (19:12)
--- NOTE | 2020-10-13 19:36 | CT Scan Report ---
CT ANGIOGRAPHY OF THE CHEST, PULMONARY EMBOLUS PROTOCOL CLINICAL HISTORY: extensive DVT, o2 sat 93%, HR 97. COMPARISON STUDY: Chest CT July 17, 2018. TECHNIQUE: Following IV administration of 117 mL of Optiray, helical axial images of the chest were o btained utilizing the pulmonary embolus protocol. Maximal intensity projections and sagittal and cor onal reformats were viewed on an independent 3D workstation. IV contrast was administered without co mplication. Automated exposure control was utilized for the study. A dose lowering technique was ut ilized adhering to the principles of ALARA. CT DOSE: 298.98 mGy.cm FINDINGS: There are several segmental pulmonary emboli within the bilateral lower lobes. There is no central pulmonary embolus. Size of the heart is normal. Ascending aorta is ectatic, measuring 4 cm. There is no thoracic aortic dissection. Central airways are patent. There is no pulmonary infarct. A few pulmonary nodules are unchanged since CT of July 17, 2018. These are benign given stability. The re is bilateral gynecomastia. No enlarged thoracic lymph nodes are present. There are old bilateral r ib fractures. Mild dilatation of the proximal celiac axis, measuring 1.2 cm is unchanged since prior CT. IMPRESSION: 1. Several segmental pulmonary emboli within the bilateral lower lobes. 2. No pulmonary infarct. 3. Ectatic ascending aorta, measuring 4 cm. No thoracic aortic dissection. ACT 112: Negative or not required by law. Electronically signed by: Yosef Francisco M.D. 10/13/2020 7:35 PM
[2020-10-13] MEDS ORDERED: POTASSIUM CHLORIDE CRTAB 20 MEQ TABCR PO STA (19:55)
[2020-10-13] MEDS ORDERED: Heparin IV Adult Wt-Based Standard WITH Bolus Protocol IV STA (20:25)
[2020-10-13] MEDS ORDERED: HEPARIN SODIUM/DEXTROSE 25,000 UNITS/500 ML BAG IV SCH (20:40)
[2020-10-13] MEDS ORDERED: HEPARIN SOD (PORCINE) 1000 UNIT/ML IV ONE (20:40)
[2020-10-13] MEDS ORDERED: PROMETHAZINE HCL 12.5 MG in SODIUM CHLORIDE 0.9% 50 ML IV PRN (20:44)
[2020-10-13] MEDS ORDERED: HYDROmorphone INJ 0.5 MG/0.5 ML SYR ONE (21:00)
[2020-10-13] MEDS ORDERED: HYDROmorphone INJ 0.5 MG/0.5 ML SYR IV STA (21:30)
--- NOTE | 2020-10-13 22:18 | History & Physical Report ---
Date of Service October 13, 2020 Assessment & Plan (1) Pulmonary embolism, bilateral: Acute pulmonary embolism secondary to left lower extremity DVT Likely secondary to decreased mobility given worsening LE pain (possible claudication from history PAD, chronic HIV neuropathy as per records) hx ischemic toe status post Coumadin, patient not compliant with aspirin recommended by [facility] vascular surgeon for PAD history) Situational hypertension, possible chronic BP elevation given LVH on outpatient 2D echo from 2019 HIV disease, stable on regimen as per recent outpatient ID specialist note Hyperglycemia rule out DM Malnutrition (low BMI) ongoing tobacco abuse Medical telemetry IV Heparin Defer discussion regarding home anticoagulation choices between patient and AM provider. (Patient expressed interest in NOAC given greater convenience with medication given inconveniences he experienced going for outpatient blood work for Coumadin 2 years ago. Patient does not own a private vehicle. ) Arterial Dopplers RE bilateral LE claudication (ABIs contraindicated with acute DVT as per technical support coordinator.) Analgesia Beta-atilio may be appropriate to initiate with persistent BP elevation given ascending aorta dilatation. Check hemoglobin A1c Nutrition consult already low BMI Nicotine patch as needed DVT prophylaxis. IV Heparin Full code Text document was generated using [employer] voice recognition software. It may contain grammatical or spelling errors. Kindly contact undersigned for clarification of any documentation item in question. History of Present Illness Chief Complaint: Left leg pain swelling Primary Care Provider: Milton Luna DO History obtained from patient and records. Medical history significant for PVD, history ischemic right toe status post Coumadin, HIV disease, neuropathy as per records, ongoing tobacco abuse. Last confinement July 2018 for ischemic right great toe pain. Patient found to have moderate to severe stenosis distal right superficial femoral artery. Vascular surgery recommended anticoagulation. Patient discharged on Coumadin which she took for about 6 months. For about 6 months now patient complaining of worsening bilateral leg pain worse on walking along with burning feet pain attributed to HIV neuropathy. Last month, patient fell in his bedroom hitting his right side of the metal bed frame. Suspected rib fracture as per PCP evaluation. Decreased ability to get up from bed secondary to lower extremity pain. Last night patient noted achy swelling more on the left leg without chest pain, S OB. At the ER, IV Heparin started for PE/DVT. No prior history of blood clots as per patient. Family history of blood clots unknown as patient adopted. 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 Allergies Allergy/AdvReac Type Severity Reaction Status Date / Time Sulfa (Sulfonamide Allergy Severe Severe Verified 10/13/20 18:33 Antibiotics) hives ciprofloxacin Allergy Intermediate Hives Verified 10/13/20 18:33 Home Medications Medication Instructions Recorded Confirmed Type hydrocodone 5 mg-acetaminophen 325 1 tab PO Q8H PRN 06/20/19 10/13/20 History mg tablet Stribild 1 tab PO HS 10/13/20 10/13/20 History atorvastatin 10 mg PO HS 10/13/20 10/13/20 History cyanocobalamin (vitamin B-12) 1,000 - 2,000 mcg PO QAM 10/13/20 10/13/20 History [Vitamin B-12] gabapentin 600 mg PO TID 10/13/20 10/13/20 History Past Med/Surg History Medical History (Updated 10/13/20 @ 23:36 by Juan Penn PA-C) Chronic back pain Chronic leg pain HIV positive Tobacco abuse Surgical History H/O inguinal hernia repair Family History Other Unknown family medical history Social History Smoking Status: Current every day smoker Tobacco Type: Cigarettes Cigarettes Per Day: 10; Second Hand Exposure: No; Do You Dip or Chew Tobacco: No; Tobacco Cessation Education Requested by Patient: No Hx Alcohol Use: Yes Alcohol type: hard liquor Alcohol Intake Frequency Comment: 1-2 vodka drinks Hx Substance Use: No Preferred Language: Spanish Communication Ability: Effective Radio Communication Coordinator Required: No Beliefs That Will Affect Care: None marital status: Single Current Living Situation: Alone Current Living Situation Comment: in apartment Other Information That Helps Us Care for You: No Feels Safe at Home: Yes Safety Concerns: Feels Safe At This Time Assistive Devices: None Review of Systems Review of Systems: As per HPI, all 10 systems reviewed, occasional dark stools without abdominal pain, all other ROS negative Physical Exam Physical Exam: GENERAL: uncomfortable, anxious, underweight no respiratory distress SKIN: Normal color, warm HEENT: [place] palpebral conjunctivae, no ptosis, dry buccal mucosa NECK : Supple, no tenderness CHEST : CTA, right chest wall tenderness HEART : RRR, no obvious murmurs ABDOMEN: Some distention, nontender RECTAL : Intact sphincter, perianal warts noted, brown yellow stool (FOBT negative) EXTREMITIES : Tender L LE swelling, no other conspicuous deformities noted NEUROLOGIC : Coherent, no facial asymmetry, no other gross focality Results & Data Results & Data ([facility]) Vital Signs (Past 12 Hours) Vital Signs Temp Pulse Pulse Resp BP BP Pulse Ox 10/13/20 21:30 77 18 123/96 100 10/13/20 21:00 82 18 156/58 H 100 10/13/20 20:00 79 15 152/78 H 99 10/13/20 19:44 82 19 184/110 H 100 10/13/20 18:50 100 H 16 157/123 H 93 10/13/20 16:33 36.5 C 97 H 18 132/82 93 Laboratory Results Laboratory Results WBC 6.78 K/uL (4.8-10.8) 10/13/20 17:08 RBC 4.30 M/uL (4.7-6.1) L 10/13/20 17:08 Hgb 16.3 g/dL (14.0-18.0) 10/13/20 17:08 Hct 46.7 % (42-52) 10/13/20 17:08 MCV 108.6 fL (80-100) H 10/13/20 17:08 MCH 37.9 pg (25-34) H 10/13/20 17:08 MCHC 34.9 g/dL (32-36) 10/13/20 17:08 RDW Std Deviation 48.1 fL (36.4-46.3) H 10/13/20 17:08 RDW Coeff of Taylor 12.2 % (11.5-14.5) 10/13/20 17:08 Plt Count 186 K/uL (130-400) 10/13/20 17:08 MPV 8.6 fL (7.4-10.4) 10/13/20 17:08 Immature Gran % (Auto) 0.1 % 10/13/20 17:08 Neut % (Auto) 70.4 % 10/13/20 17:08 Lymph % (Auto) 19.2 % 10/13/20 17:08 [place] % (Auto) 8.7 % 10/13/20 17:08 Eos % (Auto) 1.5 % 10/13/20 17:08 Baso % (Auto) 0.1 % 10/13/20 17:08 Neut # (Auto) 4.77 K/uL (1.4-6.5) 10/13/20 17:08 Lymph # (Auto) 1.30 K/uL (1.2-3.4) 10/13/20 17:08 [place]oshone # (Auto) 0.59 K/uL (0.11-0.59) 10/13/20 17:08 Eos # (Auto) 0.10 K/uL (0-0.5) 10/13/20 17:08 Baso # (Auto) 0.01 K/uL (0-0.2) 10/13/20 17:08 Immature Gran # (Auto) 0.01 K/uL (0.00-0.02) 10/13/20 17:08 PT 9.9 Seconds (9.0-12.0) 10/13/20 17:08 INR 1.0 (0.9-1.1) 10/13/20 17:08 APTT 25.2 Seconds (21.0-31.0) 10/13/20 17:08 PTT Ratio 1.0 10/13/20 17:08 Sodium 144 mmol/L (136-145) 10/13/20 17:08 Potassium 2.8 mmol/L (3.5-5.1) L 10/13/20 17:08 Chloride 104 mmol/L (98-107) 10/13/20 17:08 Carbon Dioxide 32 mmol/L (21-32) 10/13/20 17:08 Anion Gap 8.0 (3-11) 10/13/20 17:08 BUN 4 mg/dl (7-18) L 10/13/20 17:08 Creatinine 0.77 mg/dl (0.6-1.4) 10/13/20 17:08 Est Cr Clr Drug Dosing Not Reportable 10/13/20 17:08 Est GFR ( Amer) 117.6 ml/min 10/13/20 17:08 Est GFR (Non-Af Amer) 101.4 ml/min 10/13/20 17:08 BUN/Creatinine Ratio 4.9 (10-20) L 10/13/20 17:08 Glucose 115 mg/dl (70-99) H 10/13/20 17:08 Calcium 8.1 mg/dl (8.5-10.1) L 10/13/20 17:08 Magnesium 2.0 mg/dl (1.8-2.4) 10/13/20 17:08 Total Bilirubin 0.6 mg/dl (0.2-1) 10/13/20 17:08 AST 33 U/L (15-37) 10/13/20 17:08 ALT 17 U/L (12-78) 10/13/20 17:08 Alkaline Phosphatase 156 U/L (45-117) H 10/13/20 17:08 Total Creatine Kinase 67 U/L (39-308) 10/13/20 17:08 Troponin I < 0.015 ng/ml (0-0.045) 10/13/20 21:05 Total Protein 6.7 gm/dl (6.4-8.2) 10/13/20 17:08 Albumin 2.4 gm/dl (3.4-5.0) L 10/13/20 17:08 Globulin 4.3 gm/dl (2.5-4.0) H 10/13/20 17:08 Albumin/Globulin Ratio 0.6 (0.9-2) L 10/13/20 17:08 COVID-19 Eval Order Covid19 at [facility] 10/13/20 19:56 SARS-CoV-2 (PCR) NEGATIVE (Negative) 10/13/20 19:56 Impressions Venous Doppler Study 10/13/20 16:47 LEFT LOWER EXTREMITY VENOUS DOPPLER CLINICAL HISTORY: L calf pain COMPARISON STUDY: No previous studies for comparison. TECHNIQUE: Sonography of the deep venous system of the left lower extremity was performed. Compression and augmentation were evaluated. FINDINGS: Note is made of occlusive deep venous thrombus within the left femoral, popliteal, anterior tibial, posterior tibial, peroneal veins. Several of these vessels appear expanded. IMPRESSION: Extensive deep venous thrombus within the left lower extremity. ACT 112: Negative or not required by law. Electronically signed by: Yosef Francisco M.D. 10/13/2020 5:45 PM Chest CTA 10/13/20 18:00 CT ANGIOGRAPHY OF THE CHEST, PULMONARY EMBOLUS PROTOCOL CLINICAL HISTORY: extensive DVT, o2 sat 93%, HR 97. COMPARISON STUDY: Chest CT July 17, 2018. TECHNIQUE: Following IV administration of 117 mL of Optiray, helical axial images of the chest were obtained utilizing the pulmonary embolus protocol. Maximal intensity projections and sagittal and coronal reformats were viewed on an independent 3D workstation. IV contrast was administered without complication. Automated exposure control was utilized for the study. A dose lowering technique was utilized adhering to the principles of ALARA. CT DOSE: 298.98 mGy.cm FINDINGS: There are several segmental pulmonary emboli within the bilateral lower lobes. There is no central pulmonary embolus. Size of the heart is normal. Ascending aorta is ectatic, measuring 4 cm. There is no thoracic aortic dissection. Central airways are patent. There is no pulmonary infarct. A few pulmonary nodules are unchanged since CT of July 17, 2018. These are benign given stability. There is bilateral gynecomastia. No enlarged thoracic lymph nodes are present. There are old bilateral rib fractures. Mild dilatation of the proximal celiac axis, measuring 1.2 cm is unchanged since prior CT. IMPRESSION: 1. Several segmental pulmonary emboli within the bilateral lower lobes. 2. No pulmonary infarct. 3. Ectatic ascending aorta, measuring 4 cm. No thoracic aortic dissection. ACT 112: Negative or not required by law. Electronically signed by: Yosef Francisco M.D. 10/13/2020 7:35 PM Diagnostic Findings EKG as per my interpretation: Rate 70, NSR, normal axis, T wave flattening septal leads
[2020-10-13] MEDS ORDERED: ACETAMINOPHEN 325 MG TAB PO PRN (23:49)
[2020-10-13] MEDS ORDERED: PROMETHAZINE HCL 6.25 MG in SODIUM CHLORIDE 0.9% 50 ML IV PRN (23:49)
[2020-10-13] MEDS ORDERED: HYDROmorphone INJ 0.5 MG/0.5 ML SYR IV PRN (23:49)
[2020-10-13] MEDS ORDERED: LORazepam 0.25 MG/0.5 ML VIAL IV PRN (23:49)
[2020-10-14] MEDS ORDERED: POTASSIUM CHLORIDE CRTAB 20 MEQ TABCR PO STA (00:01)
[2020-10-14] MEDS ORDERED: POTASSIUM CHLORIDE 40 MEQ in SODIUM CHLORIDE 0.9% 1000ML 1,000 ML IV ONE (00:15)
[2020-10-14] MEDS: oxyCODONE HCL IR 5 MG TAB (IMMEDIATE RELEASE) PO PRN ×3 (00:36→13:12)
[2020-10-14] MEDS: GABAPENTIN 600 MG TAB PO SCH ×3 (00:36→15:11)
[2020-10-14 06:01] LABS: Basophils # (auto) 0.01 K/uL (0-0.2); Basophils % (auto) 0.2 %; Eosinophils # (auto) 0.06 K/uL (0-0.5); Hematocrit (blood only) 44.3 % (42-52); Hemoglobin 15.1 g/dL (14.0-18.0); Immature Granulocytes # (auto) 0.01 K/uL (0.00-0.02); Immature Granulocytes % (auto) 0.2 %; Lymphocytes # (auto) 1.78 K/uL (1.2-3.4); Lymphocytes % (auto) 29.7 %; Mean Corpuscular Hemoglobin 37.6 pg (25-34); Mean Corpuscular Hgb Conc 34.1 g/dL (32-36); Mean Corpuscular Volume 110.2 fL (80-100); Mean Platelet Volume 8.9 fL (7.4-10.4); Monocytes # (auto) 0.51 K/uL (0.11-0.59); Monocytes % (auto) 8.5 %; Neutrophils # (auto) 3.62 K/uL (1.4-6.5); Neutrophils % (auto) 60.4 %; Platelet Count 151 K/uL (130-400); RDW Coefficient of Variation 12.1 % (11.5-14.5); RDW Standard Deviation 48.4 fL (36.4-46.3); Red Blood Count 4.02 M/uL (4.7-6.1); White Blood Count 5.99 K/uL (4.8-10.8)
[2020-10-14 06:16] LABS: Estimated Average Glucose 71 mg/dl; Hemoglobin A1C 4.1 % (4.5-5.6)
[2020-10-14 06:21] LABS: Macrocytosis Present
[2020-10-14 06:23] LABS: Partial Thromboplastin Ratio 1.8; Prothrombin Time 10.2 Seconds (9.0-12.0)
[2020-10-14 06:27] LABS: Partial Thromboplastin Time 46.4 Seconds (21.0-31.0)
[2020-10-14 06:32] LABS: BUN Creatinine Ratio 4.6 (10-20); Calcium 8.1 mg/dl (8.5-10.1); Creatinine Clr Calc Pharmacy 95.4 ml/min; Est GFR (African American) 129.4 ml/min; Est GFR (Non-African American) 111.6 ml/min; Potassium 3.6 mmol/L (3.5-5.1)
--- NOTE | 2020-10-14 08:37 | Ultrasound Report ---
BILATERAL LOWER EXTREMITY ARTERIAL DOPPLER ULTRASOUND CLINICAL HISTORY: poor pulse, cold foot COMPARISON STUDY: Right lower extremity arterial Doppler ultrasound July 17, 2018. CTA with runoff July 17, 2018. TECHNIQUE: Grayscale, color and duplex Doppler sonography of the arterial systems of both lower extre mity was performed. FINDINGS: Extensive atherosclerotic plaque is noted within both lower extremities. There is biphasic flow within the right common femoral artery. There is occlusion of the mid to distal right superficia l femoral artery with distal reconstitution. However, flow within the right popliteal, anterior tibia l, posterior tibial, peroneal and dorsalis pedis vessels is markedly dampened and monophasic. There is a mildly elevated velocity within the proximal to mid left superficial femoral artery. This may reflect a hemodynamically significant stenosis. Monophasic flow within left common femoral artery raises the possibility of inflow disease. There is monophasic flow within the left popliteal artery. There is suspected occlusion of the tibioperoneal trunk with distal reconstitution. There is monopha sic flow within the left anterior tibial artery as well as the left peroneal artery and dorsalis pedi s. There is suspected occlusion of the distal left posterior tibial artery. IMPRESSION: 1. Extensive atherosclerotic plaque within the bilateral lower extremities. 2. Occlusion of the mid to distal right superficial femoral artery with distal reconstitution. Howeve r, distal flow is markedly dampened and monophasic within the right lower extremity. 3. Possible stenosis within the proximal to mid left superficial femoral artery. Suspected multifocal occlusion within the left calf vessels with distal reconstitution, as shown on prior CTA. ACT 112: Negative or not required by law. Electronically signed by: Yosef Francisco M.D. 10/14/2020 8:36 AM
[2020-10-14] MEDS ORDERED: CYANOCOBALAMIN 500 MCG TABLET (VITAMIN B-12) PO SCH (09:00)
[2020-10-14] MEDS ORDERED: ENOXAPARIN 80 MG/0.8 ML SYR SQ SCH (12:00)
--- NOTE | 2020-10-14 12:41 | Consultation ---
Date of Consultation October 14, 2020 Assessment & Plan (1) Peripheral arterial disease: Pt noted to have significant PAD and SFA stenoses and proximal arterial disease on CTA imaging from 2019. Pt now appears to have BL SFA occlusions, however, does not appear to have significant related sx. Pt is currently admitted for DVT/PE. Pt discussed with Dr Maya. Will plan to reeval pt in 1-2 months for PAD in office. Pt to follow with up with his PCP for LLE DVT and chronic neuropathy. Pt agreeable to this plan. History of Present Illness Reason for Consultation: PAD Attending Physician: Amaury Danielle MD History of Present Illness 55 yo m with hx of HIV, PAD, hyperlipidemia, and chronic neuropathy, admitted with acute LLE DVT and PE, seen in consultation today for PAD noted on US. Pt currently states L calf pain and edema are why he came to [facility], and this is beginning to improve since admission. Pt was previously seen by Dr Maya in 2019 for R great toe embolization and PAD, no intervention was performed. Pt states he has daily chronic pain, numbness, tingling, burning in BL feet and lower legs, which is worse as the day goes on and he is standing for long period of time. Describes the sensation in his feet like "walking on marbles." States his legs/feet feel better when they are elevated or he is lying down. Denies pain at night. States can walk at least the entire distance of the [place] without stopping d/t calf pain. Denies [place], fever, chest pain, SOB, abd pain, N/V, rest pain, claudication, other complaints. Continues to smoke 1/2 PPD. Arterial doppler demonstrates BL SFA occlusions and possible L inflow disease. VONNIE not performed d/t DVT. Allergies Allergy/AdvReac Type Severity Reaction Status Date / Time Sulfa (Sulfonamide Allergy Severe Severe Verified 10/13/20 18:33 Antibiotics) hives ciprofloxacin Allergy Intermediate Hives Verified 10/13/20 18:33 Home Medications Medication Instructions Recorded Confirmed Type hydrocodone 5 mg-acetaminophen 325 1 tab PO Q8H PRN 06/20/19 10/13/20 History mg tablet Stribild 1 tab PO HS 10/13/20 10/13/20 History atorvastatin 10 mg PO HS 10/13/20 10/13/20 History cyanocobalamin (vitamin B-12) 1,000 - 2,000 mcg PO QAM 10/13/20 10/13/20 History [Vitamin B-12] gabapentin 600 mg PO TID 10/13/20 10/13/20 History Patient History Medical History (Updated 10/14/20 @ 12:42 by Roseanna Richter PA-C) Chronic back pain Chronic leg pain HIV positive Peripheral arterial disease Tobacco abuse Surgical History H/O inguinal hernia repair Family History Other Unknown family medical history Social History Smoking Status: Current every day smoker Tobacco Type: Cigarettes Cigarettes Per Day: 10; Second Hand Exposure: No; Do You Dip or Chew Tobacco: No; Tobacco Cessation Education Requested by Patient: No Hx Alcohol Use: Yes Alcohol type: hard liquor Alcohol Intake Frequency Comment: 1-2 vodka drinks Hx Substance Use: No Preferred Language: Ghanaian Communication Ability: Effective 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 Beliefs That Will Affect Care: None marital status: Single Current Living Situation: Alone Current Living Situation Comment: in apartment Other Information That Helps Us Care for You: No Feels Safe at Home: Yes Safety Concerns: Feels Safe At This Time Assistive Devices: None Review of Systems Review of Systems: All systems reviewed & are unremarkable except as noted in HPI & below Physical Exam Constitutional: + thin, cooperative and comfortable; not in distress Eyes: PERRL, conjunctivae normal, anicteric sclerae ENMT: Ears: no hearing impairment Neck: trachea midline Respiratory: normal respiratory effort, lungs clear to auscultation Auscultation: + diminished lung sounds Cardiovascular: Rate/Rhythm: regular rate and regular rhythm Vessels: femoral pulses present (R +2, L nonpalpable), posterior tibial pulses present (dopplerable only) and radial pulses present; + abnormal peripheral pulses and + dorsalis pedis pulses abnormal Extremities: + calf tenderness (LLE) and + edema (LLE +3); + abnormal capillary refill (LLE 4 seconds, RLE 9 seconds) Gastrointestinal (Abdomen): normal bowel sounds, soft, nontender, no hepatosplenomegaly Musculoskeletal: Extremities: strength 5/5 throughout and + cyanosis (R great toe pale/light blue, no open areas) Skin: no rashes, warm and dry Neurologic: moves all extremities; no focal motor deficits and not confused Psychiatric: A+Ox3, euthymic affect Results & Data ([facility]) Vital Signs (Past 12 Hours) Vital Signs Temp Pulse Pulse Resp BP Pulse Ox 10/14/20 11:53 36.9 C 69 20 146/93 H 99 10/14/20 07:34 36.8 C 64 18 120/74 99 10/14/20 07:15 70
--- NOTE | 2020-10-14 14:24 | Hospitalist Progress Note ---
Date of Service October 14, 2020 Assessment & Plan (1) Pulmonary embolism, bilateral: Acute bilateral pulmonary embolism Acute left lower extremity DVT -CTA: Several segmental pulmonary emboli within the bilateral lower lobes. No pulmonary infarct. Ectatic ascending aorta, measuring 4 cm. No thoracic aortic dissection. -Venous Doppler: Extensive deep venous thrombus within the left lower extremity. -Hypercoagulable work-up as outpatient -IV heparin transition to Lovenox and Coumadin Monitor INR Saturating well on room air Needs follow-up with Coumadin clinic upon discharge PAD -Arterial Doppler:Extensive atherosclerotic plaque within the bilateral lower extremities. Occlusion of the mid to distal right superficial femoral artery with distal reconstitution. However, distal flow is markedly dampened and monophasic within the right lower extremity. Possible stenosis within the pro ximal to mid left superficial femoral artery. Suspected multifocal occlusion within the left calf vessels with distal reconstitution, as shown on prior CTA. 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 DVT Px: Lovenox, Coumadin Code Status Full Code Admission and Anticipated Discharge Date Admission Date: October 13, 2020 Subjective Patient is seen and examined at bedside States having left lower extremity edema, pain Denies chest pain, shortness of breath, dizziness, nausea, abdominal pain Eager to get discharged Offers no other complaints Review of Systems Review of Systems: All systems reviewed & are unremarkable except as noted in HPI & below Physical Exam Physical Exam: Physical Exam: Vitals signs as noted above General Appearance:Thin, frail, no apparent distress Head: normocephalic, Atraumatic Eyes: normal inspection, EOMI Neck: supple, Trachea midline Respiratory/Chest: Decreased breath sounds, CTA Cardiovascular: S1, S2, No murmur Abdomen/GI:Soft, Non tender, Bowel sounds present Extremities/Musculoskeletal:normal inspection, Left LE edema, tender Neurologic/Psych:AAOX3, grossly no focal neurological deficits Skin: normal color, warm Results & Data Results & Data ([facility]) Vital Signs (Past 12 Hours) Vital Signs Temp Pulse Pulse Resp BP Pulse Ox 10/14/20 11:53 36.9 C 69 20 146/93 H 99 10/14/20 07:34 36.8 C 64 18 120/74 99 10/14/20 07:15 70 Laboratory Results Short CBC 10/13/20 10/14/20 Range/Units 17:08 05:35 WBC 6.78 5.99 (4.8-10.8) K/uL Hgb 16.3 15.1 (14.0-18.0) g/dL Hct 46.7 44.3 (42-52) % Plt Count 186 151 (130-400) K/uL BMP 10/13/20 10/14/20 17:08 05:35 Sodium 144 138 Potassium 2.8 L 3.6 D Chloride 104 102 Carbon Dioxide 32 33 H BUN 4 L 3 L Creatinine 0.77 0.61 Glucose 115 H 85 Calcium 8.1 L 8.1 L Cardiac Enzymes 10/13/20 10/13/20 Range/Units 17:08 21:05 Total Creatine Kinase 67 (39-308) U/L Troponin I < 0.015 (0-0.045) ng/ml Liver Function 10/13/20 Range/Units 17:08 Total Bilirubin 0.6 (0.2-1) mg/dl AST 33 (15-37) U/L ALT 17 (12-78) U/L Alkaline Phosphatase 156 H (45-117) U/L Albumin 2.4 L (3.4-5.0) gm/dl
[2020-10-14] MEDS ORDERED: WARFARIN SOD 5 MG TAB PO SCH (16:00)
--- NOTE | 2020-10-14 17:13 | Discharge Summary ---
Date of Service October 14, 2020 Admission HPI Per Admitting Provider History obtained from patient and records. Medical history significant for PVD, history ischemic right toe status post Coumadin, HIV disease, neuropathy as per records, ongoing tobacco abuse. Last confinement July 2018 for ischemic right great toe pain. Patient found to have moderate to severe stenosis distal right superficial femoral artery. Vascular surgery recommended anticoagulation. Patient discharged on Coumadin which she took for about 6 months. For about 6 months now patient complaining of worsening bilateral leg pain worse on walking along with burning feet pain attributed to HIV neuropathy. Last month, patient fell in his bedroom hitting his right side of the metal bed frame. Suspected rib fracture as per PCP evaluation. Decreased ability to get up from bed secondary to lower extremity pain. Last night patient noted achy swelling more on the left leg without chest pain, S OB. At the ER, IV Heparin started for PE/DVT. No prior history of blood clots as per patient. Family history of blood clots unknown as patient adopted. 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 Admission Exam Per Admitting Provider Physical Exam Physical Exam: GENERAL: uncomfortable, anxious, underweight no respiratory distress SKIN: Normal color, warm HEENT: [place] palpebral conjunctivae, no ptosis, dry buccal mucosa NECK : Supple, no tenderness CHEST : CTA, right chest wall tenderness HEART : RRR, no obvious murmurs ABDOMEN: Some distention, nontender RECTAL : Intact sphincter, perianal warts noted, brown yellow stool (FOBT negative) EXTREMITIES : Tender L LE swelling, no other conspicuous deformities noted NEUROLOGIC : Coherent, no facial asymmetry, no other gross focality Principal Diagnosis Acute bilateral pulmonary embolism Acute left lower extremity DVT Peripheral artery disease Discharge Data Allergies Allergy/AdvReac Type Severity Reaction Status Date / Time Sulfa (Sulfonamide Allergy Severe Severe Verified 10/13/20 18:33 Antibiotics) hives ciprofloxacin Allergy Intermediate Hives Verified 10/13/20 18:33 Consultations 10/13/20 19:47 ED Decision to Admit Stat 10/14/20 11:25 Consult Vascular Surgery Routine Procedures Performed -CTA: Several segmental pulmonary emboli within the bilateral lower lobes. No pulmonary infarct. Ectatic ascending aorta, measuring 4 cm. No thoracic aortic dissection. -Venous Doppler: Extensive deep venous thrombus within the left lower extremity. Ordered Studies 10/13/20 16:47 US venous doppler LE LT Stat 10/13/20 18:00 CT angio chest PE protocol Stat 10/14/20 00:26 US arterial duplex LE BI Urgent Hospital Course (1) Pulmonary embolism, bilateral: Acute bilateral pulmonary embolism Acute left lower extremity DVT -CTA: Several segmental pulmonary emboli within the bilateral lower lobes. No pulmonary infarct. Ectatic ascending aorta, measuring 4 cm. No thoracic aortic dissection. -Venous Doppler: Extensive deep venous thrombus within the left lower extremity. -Hypercoagulable work-up as outpatient -IV heparin transition to Lovenox and Coumadin Monitor INR Saturating well on room air Needs follow-up with Coumadin clinic upon discharge Despite explaining the risks, complications patient signed out AGAINST MEDICAL ADVICE. PAD -Arterial Doppler:Extensive atherosclerotic plaque within the bilateral lower extremities. Occlusion of the mid to distal right superficial femoral artery with distal reconstitution. However, distal flow is markedly dampened and monophasic within the right lower extremity. Possible stenosis within the proximal to mid left superficial femoral artery. Suspected multifocal occlusion within the left calf vessels with distal reconstitution, as shown on prior CTA. -Appreciate vascular surgery input Continue anticoagulation as above Needs follow-up with vascular surgery upon discharge in 1-2 months H/O Ischemic toe S/P Coumadin Patient not compliant with aspirin recommended by [facility] vascular surgeon for PAD Hypertension Blood pressure is elevated likely secondary to pain Currently not on any antihypertensives Monitor HIV disease stable continue home meds Moderate Protein Calorie Malnutrition BMI:16.5 Ongoing tobacco abuse Inpatient Care Manager Rn to quit DVT Px: Lovenox, Coumadin Code Status Full Code Disposition AGAINST MEDICAL ADVICE Total Time Total Time Spent Total Time Spent (In Minutes): 36 minutes Total Time Includes: Examination of the Patient, Discharge Planning, Medication Reconciliation, Communication With Other Providers and Other Discharge Plan Discharge Items Patient Disposition: Against Medical Advice Reason For Visit: PE DVT Condition on Discharge: Good Activity: Per Instructions section Non-emergency contact: Primary Care Provider and Specialist Follow-up/Referrals: Milton Luna DO [Primary Care Provider] - (Date & Time 10/17/2020 11:20 AM Provider Leta Schaeffer MD Department General Internal Medicine [facility] ) Addtl Senior Medical Director Provider Instructions: Follow-up with your primary care physician Dr. Milton Luna as soon as possible Follow-up with Coumadin clinic for further management of your Lovenox, Coumadin dosing. Your Target INR is between 2.0 to 3.0 Seek immediate medical attention if your symptoms reoccur or worsen Please take all medications as instructed on discharge list below. Please call if you have any questions or problems. You can reach a [facility] hospitalist on duty at [facility] 24 hours a day by calling [phone] Pending Studies at Discharge: No Stand-Alone Forms: My [facility], Smoking Cessation Medications and DC Order Prescriptions: New enoxaparin [Lovenox] 80 mg/0.8 mL Syringe 80 mg subcut DAILY 5 Days Qty: 4 RF: 0 warfarin 1 mg tablet 1 mg PO UD Qty: 60 RF: 0 warfarin 2 mg tablet 2 mg PO UD Qty: 60 RF: 0 Continued hydrocodone-acetaminophen 5-325 mg tablet 1 tab PO Q8H PRN (Reason: Pain) RF: 0 gabapentin 600 mg tablet 600 mg PO TID RF: 0 atorvastatin 10 mg tablet 10 mg PO HS RF: 0 cyanocobalamin (vitamin B-12) [Vitamin B-12] 1,000 mcg Tablet 1,000 - 2,000 mcg PO QAM RF: 0 Stribild [id number] mg tablet 1 tab PO HS RF: 0 Discharge Orders: Left Against Medical Advice (Routine); Ordered 10/14/20 Ordered By: Amaury Danielle Admission Data Admit Date/Time: 10/13/20 22:20 Attending Provider: Amaury Danielle Admit Provider: Jeremiah Breaux Primary Care Provider: Milton Luna Other Providers: Jeremiah Breaux ; Hermelindo Maya Other Interventions: Discharge Summary Assessment (RN) Last Done: 10/14/20 17:02
[2020-10-14] MEDS ORDERED: ATORVASTATIN 10 MG TAB PO SCH (21:00)
--- NOTE | 2020-10-15 05:40 | Electrocardiogram Report ---
Test Reason : Blood Pressure : / mmHG Vent. Rate : 068 BPM Atrial Rate : 068 BPM P-R Int : 154 ms QRS Dur : 094 ms QT Int : 396 ms P-R-T Axes : 054 052 050 degrees QTc Int : 421 ms Poor data quality, interpretation may be adversely affected Normal sinus rhythm Septal infarct (cited on or before 17-JUL-2018) Nonspecific ST abnormality Abnormal ECG When compared with ECG of 17-JUL-2018 16:00, No significant change was found Confirmed by Nolan Jimenez ([id number]) on 10/15/2020 5:40:16 AM Referred By: REFERRED SELF Confirmed By:Nolan Jimenez
== END 2020-10-14 17:23 | disposition left against medical advice (07) | DRG 299 ==
LOC: ED 16:25 → INTOOBSV 22:20 → 2N 22:20

== ENCOUNTER 2022-11-29 10:17 | Inpatient (IN) ==
[2022-11-29] MEDS ORDERED: MoRPHine SULFATE 4 MG/ML 1 ML CARP\\VIAL IV STA (11:19)
[2022-11-29] MEDS ORDERED: SODIUM CHLORIDE 0.9% 1000ML 1,000 ML IV STA (11:19)
[2022-11-29] MEDS ORDERED: ONDANSETRON INJ 2 MG/ML 2 ML VIAL IV STA (11:19)
[2022-11-29 11:57] LABS: Basophils # (auto) 0.01 K/uL (0-0.2); Basophils % (auto) 0.1 %; Hematocrit (blood only) 38.3 % (42.0-52.0); Hemoglobin 13.3 g/dl (14.0-18.0); Immature Granulocytes # (auto) 0.06 K/uL (0.01-0.20); Immature Granulocytes % (auto) 0.4 %; Lymphocytes # (auto) 2.05 K/uL (1.2-3.4); Mean Corpuscular Hgb Conc 34.7 g/dL (32.0-36.0); Mean Corpuscular Volume 92.3 fL (80.0-100.0); Mean Platelet Volume 9.3 fL (9.4-12.4); Monocytes # (auto) 1.06 K/uL (0.11-0.59); Monocytes % (auto) 7.2 %; Neutrophils # (auto) 11.51 K/uL (1.40-6.50); Neutrophils % (auto) 78.3 %; Platelet Count 337 K/uL (130-400); RDW Coefficient of Variation 13.6 % (11.5-14.5); RDW Standard Deviation 45.7 fL (36.4-46.3); Red Blood Count 4.15 M/uL (4.70-6.10); White Blood Count 14.69 K/ul (4.8-10.8)
[2022-11-29] MEDS ORDERED: PIPERACILLIN/TAZOBACTAM 4.5 GM/120 ML BAG IV ONE (12:03)
[2022-11-29 12:10] LABS: Anion Gap 6 (3-11); BUN Creatinine Ratio 22.5 (10-20); Blood Urea Nitrogen 20 mg/dl (6-23); Calcium 7.2 mg/dl (8.6-10.3); Carbon Dioxide 25 mmol/L (21-32); Chloride 94 mmol/L (98-107); Creatinine Clr Calc Pharmacy 66.9 ml/min; Est GFR (African American) 109.2 ml/min; Est GFR (Non-African American) 94.3 ml/min; Glucose 88 mg/dl (70-99(Fasting)); Potassium 3.7 mmol/L (3.5-5.1); Sodium 125 mmol/L (136-145)
[2022-11-29] MEDS: SODIUM CHLORIDE 0.9% 1000ML 1,000 ML IV SCH ×2 (12:12→18:12)
[2022-11-29 12:46] LABS: Alanine Aminotransferase 17 U/L (7-52); Albumin Globulin Ratio 0.6 (0.9-2); Albumin Level 1.7 gm/dl (3.4-5.0); Alkaline Phosphatase 91 U/L (34-104); Aspartate Aminotransferase 25 U/L (13-39); Bilirubin,Total 0.9 mg/dl (0.2-1.0); Globulin 2.7 gm/dl (2.5-4.0); Lipase < 3 U/L (11-82); Magnesium 1.8 mg/dl (1.7-2.4); Phosphorus 2.7 mg/dl (2.5-4.9); Total Protein 4.4 gm/dl (6.0-8.3)
--- NOTE | 2022-11-29 13:49 | XRay Report ---
KUB HISTORY: Acute generalized abdominal pain with diarrhea Diarrhea COMPARISON: CT 09/04/2021 FINDINGS: Nonobstructive bowel gas pattern. Moderate fecal retention in the left hemicolon. Left comm on iliac arterial stent again noted. Right pelvic surgical zoe. No renal calculi. No ureteral ca lculi. No pneumoperitoneum or pneumatosis. No fracture. IMPRESSION: Nonobstructive bowel gas pattern. ACT 112: Negative or not required by law. The above report was generated using voice recognition software. It may contain grammatical, syntax o r spelling errors. Electronically signed by: Richard Kerns M.D. 11/29/2022 1:48 PM
[2022-11-29] MEDS ORDERED: OPTIRAY 320 100ml IV ONE (14:01)
[2022-11-29 14:08] LABS: Adenovirus F 40/41 PCR Not Detected (NotDetected); Astrovirus PCR Not Detected (NotDetected); Campylobacter PCR Not Detected (NotDetected); Cryptosporidium PCR Not Detected (NotDetected); Cyclospora cayetanensis PCR Not Detected (NotDetected); Entamoeba histolytica PCR Not Detected (NotDetected); Enteroaggregative E.coli(EAEC) Not Detected (NotDetected); Enteropathogenic E.coli (EPEC) Not Detected (NotDetected); Enterotoxigenic E.coli (ETEC) Not Detected (NotDetected); Giardia lamblia PCR Not Detected (NotDetected); Norovirus GI/GII PCR Not Detected (NotDetected); Plesiomonas shigelloides PCR Not Detected (NotDetected); Rotavirus A PCR Not Detected (NotDetected); Salmonella PCR Not Detected (NotDetected); Sapovirus PCR Not Detected (NotDetected); Shiga-like Toxin E.coli (STEC) Not Detected (NotDetected); Shigella/Enteroinvasive E.coli Not Detected (NotDetected); Vibrio cholerae PCR Not Detected (NotDetected); Vibrio species PCR Not Detected (NotDetected); Yersinia enterocolitica PCR Not Detected (NotDetected)
--- NOTE | 2022-11-29 15:03 | CT Scan Report ---
ABDOMEN AND PELVIS CT WITH IV CONTRAST CT DOSE: 459.22 mGy.cm HISTORY: Acute generalized abdominal pain with diarrhea. rectal mass, increased pain, diarrhea TECHNIQUE: Multiaxial CT images of the abdomen and pelvis were performed following the IV administrat ion of 94 cc of Optiray, A dose lowering technique was utilized adhering to the principles of ALARA. COMPARISON STUDY: 09/04/2021 FINDINGS: Partially imaged left gynecomastia. Lung bases are generally clear. No pneumatosis or pneum operitoneum. The spleen is upper limits of normal in size. Ill-defined area of decreased attenuation extending to the subcapsular margin within the inferomedial spleen measures up to proximal 5 cm, best seen on the sagittal images. Unremarkable pancreas and adrenal glands. Distended gallbladder with ch olelithiasis. There are a few hypodense foci noted within the hepatic dome measuring up to 1.1 cm, st able from prior. These are favored to be benign. Patency of the hepatic and portal veins. Cortical thinning of the kidneys without hydronephrosis. There are 2 nonobstructing calculi left kidn ey measuring up to 4 mm. There are a few subcentimeter hypodense foci of the bilateral kidneys are to o small to characterize, likely cysts. Urinary bladder wall thickening with partial distention. Prost atomegaly. Atherosclerosis of the aorta. 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 P atent left common femoral arterial stent. There is occlusion involving the proximal portions of the b ilateral internal iliac arteries which is unchanged. There is approximately 50% stenosis involving th e distal portion of the left external iliac artery which is unchanged. Occlusion of the bilateral sup erficial femoral arteries has progressed from prior. 1.2 cm left inguinal chain lymph node. Heterogen eity of the testicles with hydroceles. Tiny hiatal hernia. Numerous fluid-filled loops of small bowel measure up to approximately 2.5 cm. Th ere is a large invasive heterogeneously enhancing mass of the rectum extending to the anus measuring up to approximately 10 cm demonstrating transmural extension and with a small fistulous tract within the right ischioanal fossa. Numerous perirectal lymph nodes measure up to 8 mm. Possible extension of the mass into the posterior aspect of the prostate. Circumferential wall thickening of the sigmoid a nd rectosigmoid junction with mucosal uremia. There is an additional wall thickening noted throughout the ascending and transverse colon. Surgical clips in the abdominal right lower quadrant. Moderate a bdominal pelvic ascites. Noninflamed appendix. Mild generalized body wall edema. Demineralized appear ance of the bones. No acute fracture. IMPRESSION: 1. 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 2. No bowel obstruction or pneumoperitoneum. 3. Fluid-filled loops of small bowel may represent an ileus or enteritis. Low-grade obstruction consi dered less likely. 4. 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 5. Cholelithiasis with distended gallbladder. Findings could be correlated with ultrasound. 6. Moderate ascites. 7. Left nephrolithiasis. 8. Occlusion of the bilateral superficial femoral arteries. 9. Additional findings as above. ACT 112: Negative or not required by law. The above report was generated using voice recognition software. It may contain grammatical, syntax o r spelling errors. Electronically signed by: Richard Kerns M.D. 11/29/2022 3:01 PM
--- NOTE | 2022-11-29 16:50 | History & Physical Report ---
Date of Service November 29, 2022 Assessment & Plan (1) Mass of anus: Plan: 57 y/o male with severe peripheral arterial disease, HIV disease, peripheral neuropathy, prior PE, migraines, and anal mass who presented to the ED today with worsening anal pain, dehydration, weakness, and diarrhea. Symptoms have been worsening and imaging in the ED today with progression of known anal mass, likely malignancy. Discussed with surgery here who recommended transfer to [facility] for colorectal surgery evaluation. ED provider discussed with providers at [facility] who declined to accept the transfer. Pt will be admitted here to stabilize acute issues but will need biopsy GILDARDO upon discharge. Discussed pt's CT results from today in-depth with patient and his medical imaging technologist including the probability that this is malignancy. Explained why a biopsy for confirmation would be important for future treatment planning. - Admit to PCU - Pain control - ordered IV Dilaudid as limited efficacy of morphine - Clear liquid diet for now - Continue IVF for rehydration - sodium improving on repeat labs, lactate also improved - Broad-spectrum IV antibiotics - continue Zosyn started in the ED, follow WBCs - Palliative care consult to assist with goals of care, discharge plans, pain co ntrol - pt with limited social support, lives alone. His current goal is pain control first, then treatment options for presumed malignancy. - Resume Eliquis that was on hold for the biopsy (2) Hyponatremia: (3) Dehydration: (4) Malnutrition: Plan: Unable to tolerate significant oral intake due to severity of diarrhea and fecal incontinence - once symptoms better controlled, will attempt to advance diet. Consider grocery bagger johan. (5) Human immunodeficiency virus (HIV) disease: Plan: Pt currently on Biktarvy which is not available on formulary here at [facility]. Discussed with patient that ideally, he would have someone bring his medication to the hospital for pharmacy to verify so he can continue to take this while admitted. He is unsure if this will be feasible but will try tomorrow. Discussed with pharmacist - could substitute with Truvada and dolutegravir but would be changing one component of pt's regimen so not ideal. If pt is unable to have his own medication brought in, can submit a non-formulary request for approval although medication would likely not be available until Tuesday. Will need to f/u with patient and his case packer and sealer tomorrow. (6) Peripheral arterial disease: (7) Idiopathic peripheral neuropathy: (8) History of pulmonary embolism: Plan Pt seen and evaluated with collaborating physician, Dr. Vivas. Plan of care discussed and as outlined above. Code Status: Full code DVT prophylaxis: Milagros John PA-C Admission and Anticipated Discharge Date Admission Date: Patient was seen and examined independently at bedside. Chart reviewed. Case discussed with Italia MORENO and agree with the documentation above. In summary, this is a 57-year-old male with history of HIV, rectal mass, planned for biopsy today at [facility] but was brought to the ED by her case briefer to the ED as she felt he was pale, weak, unsteady and not doing good. Patient was interviewed at bedside along with the case briefer. He complains of poor oral intake for many days. Also complains of burning pain in the rectum and unable to refill his oxycodone from the PCP. Also has constant leaking/beth rrhea. Denies fever, chills, nausea, vomiting, chest pain, shortness of breath, dysuria. Outpatient records including recent biopsy results, CT chest abdomen pelvis, MRI pelvis reviewed. Labs and imaging from the ED reviewed. Labs show hyponatremia, lactic acidemia, leukocytosis. CT shows large infiltrative mass of the anus and rectum measures up to 10 cm in length with transmural extension, perianal fistula and metastatic perirectal lymph nodes. 2. No bowel obstruction or pneumoperitoneum. 3. Fluid-filled loops of small bowel may represent an ileus or enteritis. Low- grade obstruction considered less likely. 4. 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 5. Cholelithiasis with distended gallbladder. Findings could be correlated with ultrasound. 6. Moderate ascites. 7. Left nephrolithiasis. 8. Occlusion of the bilateral superficial femoral arteries. Given IVF and empiric Zosyn in the ED with improvement in sodium level and lactic acid. Discussed the case with Dr. Herring who recommended transfer to [facility]. ED physician spoke to [facility] for transfer but was declined. Hospitalist service was consulted for admission. During my encounter, patient was fairly comfortable and not in acute distress. Awake, alert, answers appropriately. Chest clear, heart sounds normal, no edema. UA suggestive of UTI, prior urine cultures with pansensitive E. coli. GI bio fire negative. Agree with continued IVF, empiric Zosyn, palliative consult. Resume home Eliquis which has been on hold for planned biopsy today. Follow-up urine culture results. Repeat labs in AM. Rest as per the note above. History of Present Illness Chief Complaint: diarrhea, anal pain, weakness Primary Care Provider: Leta Schaeffer MD This is a 57 y/o male with severe peripheral arterial disease, HIV disease, peripheral neuropathy, prior PE, migraines, and anal mass who presented to the ED today with worsening anal pain, dehydration, weakness, and diarrhea. Pt was originally seen in late 2021 for the anal bleeding and mass by Dr. Herring who referred him to colorectal surgery. Seen in Jun 2022 who recommended anorectal exam under anesthesia plus colonoscopy. On 09/06/22, pt underwent anorectal exam under anesthesia, excision of anal condylomata, and biopsy of anal mass. 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 CT on 09/30/22 showed heterogeneously enhancing rectal mass extending superiorly approx imately 9 cm but non-obstructing, tiny prominent perirectal enlarged LN - highly suspicious for rectal malignancy with local mets. MRI on 10/27/22 showed anal mass extending into the low rectum with extension into the perianal and perirectal fat, overall size 9.7 cm cephalocaudal by 6.1 cm AP with suspected involvement of left seminal vesicle/prostate and posterior urethral margin. Saw CRS again on 11/04/22 who recommended repeat exam under anesthesia with biopsy as imaging findings most consistent with anal cancer, even with prior biopsy not showing this, and pt with ongoing symptoms of partial obstruction. Pt was scheduled for this procedure today. However, when his medical manager compliance arrived to drive him to the procedure, he was too weak and in too much pain to be able to tolerate the trip to [place]. Pt has a history of unprovoked VTE and severe PAD so hematology has recommended indefinite anticoagulation with Eliquis 5 mg BID - pt has been holding this for the last couple of days for the biopsy today. Pt follows with Dr. Au for HIV - most recently has been on Biktarvy 50-200-25 daily, last visit in fall 2021. Down at least 40 lbs from baseline weight of 160 lbs. Not eating for the last week as eating makes diarrhea and incontinence worse. Anal pain waxes and wanes - pt is out of pain medications at present. Not sleeping due to severity of pain. Ongoing issues with rectal bleeding - also waxes and wanes. Progressive weakness and fatigue - fell at home yesterday in the bathroom and struggled to get back up. Lives alone with very limited support system. Allergies Allergy/AdvReac Type Severity Reaction Status Date / Time Sulfa (Sulfonamide Allergy Severe Severe Verified 10/13/20 18:33 Antibiotics) hives ciprofloxacin Allergy Intermediate Hives Verified 10/13/20 18:33 Home Medications Medication Instructions Recorded Confirmed Type gabapentin 600 mg tablet 600 mg PO TID 10/13/20 11/29/22 History B12 1 - 2 gummy PO DAILY 11/29/22 11/29/22 History Biktarvy See Rx Instructions .Route .COMPLEX 11/29/22 11/29/22 History apixaban 5 mg tablet (Eliquis) 5 mg PO BID 11/29/22 11/29/22 History atorvastatin 40 mg tablet 40 mg PO HS 11/29/22 11/29/22 History clopidogrel 75 mg tablet 75 mg PO DAILY 11/29/22 11/29/22 History Past Med/Surg History Medical History Acute deep vein thrombosis (DVT) of left lower extremity B12 deficiency Chronic back pain Chronic leg pain HIV positive Idiopathic peripheral neuropathy Migraines Nephrolithiasis Peripheral arterial disease Pulmonary embolism Tobacco abuse Surgical History H/O inguinal hernia repair History of femoropopliteal bypass Family History Other Unknown family medical history Social History Smoking Status: Never smoker Tobacco Type: Cigarettes Cigarettes Per Day: 10; Second Hand Exposure: No; Do You Dip or Chew Tobacco: No; Hx Alcohol Use: No Hx Substance Use: No Preferred Language: Nepali Communication Ability: Effective Molder Required: No Beliefs That Will Affect Care: None marital status: Single Current Living Situation: Alone Current Living Situation Comment: in apartment Other Information That Helps Us Care for You: No Feels Safe at Home: Yes Safety Concerns: Feels Safe At This Time Assistive Devices: None Review of Systems Review of Systems: All systems reviewed & are unremarkable except as noted in HPI & below Constitutional: + fatigue, + weakness and + anorexia Gastrointestinal: + diarrhea/loose stools, + fecal incontinence and + blood in stools Musculoskeletal: + muscle weakness Neurologic: + unsteadiness, + falls and + generalized weakness Psychiatric: + anxiety Physical Exam Constitutional: + cachectic and + frail appearing; no acute distress Eyes: + anicteric sclerae Neck: trachea midline Respiratory: no respiratory distress and no labored breathing Auscultation: lungs clear to auscultation bilaterally; no rales, no rhonchi and no wheezes Cardiovascular: Rate/Rhythm: regular rate and regular rhythm Vessels: radial pulses present Extremities: no pedal edema Gastrointestinal (Abdomen): Inspection/Auscultation: normal bowel sounds; abdomen not distended Percussion/Palpation: abdomen soft; abdomen nontender Musculoskeletal: Head/Neck/Chest: normocephalic, head atraumatic and neck supple Skin: no jaundice Neurologic: moves all extremities; no focal motor deficits and not confused Psychiatric: Orientation: alert and oriented x 3 Affect: + anxious affect Results & Data Results & Data Vital Signs (Past 12 Hours) Vital Signs Temp Pulse Pulse Resp BP BP Pulse Ox 11/29/22 14:14 80 18 98/70 L 99 11/29/22 13:11 82 18 105/70 100 11/29/22 11:17 105 H 22 114/88 100 11/29/22 10:43 114 H 11/29/22 10:21 36.8 C 130 H 20 94/74 L 97 O2 Del Method 11/29/22 14:14 Room Air 11/29/22 13:11 Room Air 11/29/22 11:17 Room Air 11/29/22 10:43 11/29/22 10:21 Room Air Laboratory Results Laboratory Results - last 24 hr 11/29/22 11/29/22 11/29/22 10:54 10:54 11:43 WBC 14.69 H RBC 4.15 L Hgb 13.3 L Hct 38.3 L MCV 92.3 MCH 32.0 MCHC 34.7 RDW Std Deviation 45.7 RDW Coeff of Taylor 13.6 Plt Count 337 MPV 9.3 L Immature Gran % (Auto) 0.4 Neut % (Auto) 78.3 Lymph % (Auto) 14.0 [place] % (Auto) 7.2 Eos % (Auto) 0.0 Baso % (Auto) 0.1 Neut # (Auto) 11.51 H Lymph # (Auto) 2.05 [place] # (Auto) 1.06 H Eos # (Auto) 0.00 Baso # (Auto) 0.01 Immature Gran # (Auto) 0.06 Sodium 125 L Potassium 3.7 Chloride 94 L Carbon Dioxide 25 Anion Gap 6 BUN 20 Creatinine 0.89 Est Cr Clr Drug Dosing 66.9 Est GFR ( Amer) 109.2 Est GFR (Non-Af Amer) 94.3 BUN/Creatinine Ratio 22.5 H Glucose 88 Lactate Calcium 7.2 L Phosphorus 2.7 Magnesium 1.8 Total Bilirubin 0.9 AST 25 ALT 17 Alkaline Phosphatase 91 Total Protein 4.4 L Albumin 1.7 L Globulin 2.7 Albumin/Globulin Ratio 0.6 L Lipase < 3 L Stl C. cayetanensis PCR Stool Rotavirus A PCR Stl Adenov F 40/41 PCR Stool Astrovirus (PCR) Stool Campylobacter PCR Stl C. diff Tox B Gene Stool Cryptosporidium PCR Stl E.coli Shiga Tox PCR Stl Enterotoxigenic E PCR Stool EPEC (PCR) Stool EAEC (PCR) Stl E. histolytica PCR Stool Giardia Lamblia PCR Stool Salmonella PCR Stool Sapovirus (PCR) Stl P. shigelloides PCR Stl Shigella/EIEC PCR St Y.enterocolitica PCR Stool Vibrio (PCR) Stl Vibrio cholerae PCR Stl Norovirus GI/GII PCR SARS-CoV-2, RNA, NAAT NEGATIVE 11/29/22 11/29/22 11/29/22 11:50 12:12 12:12 WBC RBC Hgb Hct MCV MCH MCHC RDW Std Deviation RDW Coeff of Taylor Plt Count MPV Immature Gran % (Auto) Neut % (Auto) Lymph % (Auto) [place] % (Auto) Eos % (Auto) Baso % (Auto) Neut # (Auto) Lymph # (Auto) [place] # (Auto) Eos # (Auto) Baso # (Auto) Immature Gran # (Auto) Sodium Potassium Chloride Carbon Dioxide Anion Gap BUN Creatinine Est Cr Clr Drug Dosing Est GFR ( Amer) Est GFR (Non-Af Amer) BUN/Creatinine Ratio Glucose Lactate 2.1 H* Calcium Phosphorus Magnesium Total Bilirubin AST ALT Alkaline Phosphatase Total Protein Albumin Globulin Albumin/Globulin Ratio Lipase Stl C. cayetanensis PCR Not Detected Stool Rotavirus A PCR Not Detected Stl Adenov F 40/41 PCR Not Detected Stool Astrovirus (PCR) Not Detected Stool Campylobacter PCR Not Detected Stl C. diff Tox B Gene Negative Cdiff Gene Stool Cryptosporidium PCR Not Detected Stl E.coli Shiga Tox PCR Not Detected Stl Enterotoxigenic E PCR Not Detected Stool EPEC (PCR) Not Detected Stool EAEC (PCR) Not Detected Stl E. histolytica PCR Not Detected Stool Giardia Lamblia PCR Not Detected Stool Salmonella PCR Not Detected Stool Sapovirus (PCR) Not Detected Stl P. shigelloides PCR Not Detected Stl Shigella/EIEC PCR Not Detected St Y.enterocolitica PCR Not Detected Stool Vibrio (PCR) Not Detected Stl Vibrio cholerae PCR Not Detected Stl Norovirus GI/GII PCR Not Detected SARS-CoV-2, RNA, NAAT Diagnostic Findings KUB X-Ray 11/29/22 11:19 KUB HISTORY: Acute generalized abdominal pain with diarrhea Diarrhea COMPARISON: CT 09/04/2021 FINDINGS: Nonobstructive bowel gas pattern. Moderate fecal retention in the left hemicolon. Left common iliac arterial stent again noted. Right pelvic surgical zoe. No renal calculi. No ureteral calculi. No pneumoperitoneum or pneumatosis. No fracture. IMPRESSION: Nonobstructive bowel gas pattern. Abdomen/Pelvis CT 11/29/22 13:[address] WITH IV CONTRAST CT DOSE: 459.22 mGy.cm HISTORY: Acute generalized abdominal pain with diarrhea. rectal mass, increased pain, diarrhea TECHNIQUE: Multiaxial CT images of the abdomen and pelvis were performed following the IV administration of 94 cc of Optiray, A dose lowering technique was utilized adhering to the principles of ALARA. COMPARISON STUDY: 09/04/2021 FINDINGS: Partially imaged left gynecomastia. Lung bases are generally clear. No pneumatosis or pneumoperitoneum. The spleen is upper limits of normal in size. Ill-defined area of decreased attenuation extending to the subcapsular margin within the inferomedial spleen measures up to proximal 5 cm, best seen on the sagittal images. Unremarkable pancreas and adrenal glands. Distended gallbladder with cholelithiasis. There are a few hypodense foci noted within the hepatic dome measuring up to 1.1 cm, stable from prior. These are favored to be benign. Patency of the hepatic and portal veins. Cortical thinning of the kidneys without hydronephrosis. There are 2 nonobstructing calculi left kidney measuring up to 4 mm. There are a few subcentimeter hypodense foci of the bilateral kidneys are too small to characterize, likely cysts. Urinary bladder wall thickening with partial distention. Prostatomegaly. Atherosclerosis of the aorta. 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 Patent left common femoral arterial stent. 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 There is approximately 50% stenosis involving the distal portion of the left external iliac artery which is unchanged. 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 1.2 cm left inguinal chain lymph node. Heterogeneity of the testicles with hydroceles. Tiny hiatal hernia. Numerous fluid-filled loops of small bowel measure up to approximately 2.5 cm. There is a large invasive heterogeneously enhancing mass of the rectum extending to the anus measuring up to approximately 10 cm demonstrating transmural extension and with a small fistulous tract within the right ischioanal fossa. Numerous perirectal lymph nodes measure up to 8 mm. Possible extension of the mass into the posterior aspect of the prostate. Circumferential wall thickening of the sigmoid and rectosigmoid junction with mucosal uremia. There is an additional wall thickening noted throughout the ascending and transverse colon. Surgical clips in the abdominal right lower quadrant. Moderate abdominal pelvic ascites. Noninflamed appendix. Mild generalized body wall edema. Demineralized appearance of the bones. No acute fracture. IMPRESSION: 1. Large infiltrative mass of the anus and rectum measures up to 10 cm in length with transmural extension, perianal fistula and metastatic perirectal lymph nodes. 2. No bowel obstruction or pneumoperitoneum. 3. Fluid-filled loops of small bowel may represent an ileus or enteritis. Low- grade obstruction considered less likely. 4. 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 5. Cholelithiasis with distended gallbladder. Findings could be correlated with ultrasound. 6. Moderate ascites. 7. Left nephrolithiasis. 8. Occlusion of the bilateral superficial femoral arteries. 9. Additional findings as above. Medications Administered Sodium Chloride (Nss 1000ml) 1,000 mls @ 150 mls/hr IV .[id number] [facility] Stop: 12/29/22 11:29 Last Admin: 11/29/22 12:12 Dose: 150 mls/hr Documented By: MIKE Discontinued Medications Sodium Chloride (Nss 1000ml) 1,000 mls @ 999 mls/hr IV .Q1H1M STA Stop: 11/29/22 12:19 Last Infusion: 11/29/22 12:12 Dose: 0 mls/hr Documented By: Admin: 11/29/22 11:37 Dose: 999 mls/hr Documented By: MIKE Piperacillin Sod/Tazobactam Sod (Zosyn) 4.5 gm in 120 mls @ 240 mls/hr IV NOW ONE Stop: 11/29/22 12:32 Last Infusion: 11/29/22 13:07 Dose: 0 mls/hr Documented By: Admin: 11/29/22 12:21 Dose: 240 mls/hr Documented By: MIKE Ioversol (Optiray 320 100ml) 94 ml IV ONCE ONE Stop: 11/29/22 14:02 Last Admin: 11/29/22 14:02 Dose: 94 ml Documented By: JOSH Morphine Sulfate (Morphine Sulfate 4 Mg/Ml 1 Ml Carp\Vial) 4 mg IV NOW STA Stop: 11/29/22 11:20 Last Admin: 11/29/22 11:36 Dose: 4 mg Documented By: MIKE Ondansetron HCl (Ondansetron Inj 2 Mg/Ml 2 Ml Vial) 4 mg IV NOW STA Stop: 11/29/22 11:20 Last Admin: 11/29/22 11:36 Dose: 4 mg Documented By: MIKE
[2022-11-29 17:32] LABS: Appearance Urine Clear (Clear); Bacteria Urine Automated 1+ (Negative); Bilirubin Urine Negative (Negative); Blood Urine Negative (Negative); Color Urine Dark Yellow; Glucose Urine UA Negative (Negative); Ketones Urine Trace (Negative); Leukocyte Esterase Urine 1+ (Negative); Nitrite Urine Positive (Negative); Protein Urine Trace (Negative); RBC Urine Automated 0-4 /hpf (0-4); Specific Gravity Urine > 1.045 (1.000-1.030); Urobilinogen Urine Negative (Negative); pH Urine 5.5 (4.5-7.5)
[2022-11-29 17:49] LABS: Calcium 6.6 mg/dl (8.6-10.3); Creatinine Clr Calc Pharmacy 79.4 ml/min; Est GFR (African American) 117.2 ml/min; Est GFR (Non-African American) 101.1 ml/min; Potassium 3.6 mmol/L (3.5-5.1)
[2022-11-29] MEDS: PIPERACILLIN/TAZOBACTAM 4.5 GM in DEXTROSE 5% 100 ML IV SCH (18:12)
[2022-11-29] MEDS ORDERED: HYDROmorphone INJ 0.5 MG/0.5 ML SYR IV PRN ×2 (19:10→22:23)
--- NOTE | 2022-11-29 19:43 | Emergency Department Note ---
Impression & Plan Dehydration, Hyponatremia, Hypocalcemia, Carcinoma of rectum, HIV (human immunodeficiency virus infection) ED Provider Note CHIEF COMPLAINT: Diarrhea HISTORY OF PRESENT ILLNESS: This 57 yo male patient with past medical history of pulmonary embolus, rectal carcinoma, peripheral arterial disease, HIV, femoral artery stenosis and occlusion, chronic tobacco use, presents to the emergency department with complaints of recurrent diarrhea over the last week. The patient was visited by his shelter case manager today as she was to drive him to [place] for biopsy of the rectal mass. She noted that he is weak and dry heaving. He states he has been incontinent of watery stools. He does deny any abdominal pain, blood in the stool and vomiting. He has not had any recent fevers, chest pain or shortness of breath. He states he has been able to keep his HIV medications down. REVIEW OF SYSTEMS: A review of systems was performed with positives and pertinent negatives listed in the history of present illness. 10 systems were reviewed and are otherwise negative. ALLERGIES: see below MEDICATIONS: see below PMH: see below SOCIAL HISTORY: see below DDx: Infectious diarrhea, medication effect, dehydration, metabolic abnormality, electrolyte deficiency, kidney injury, colitis/C. difficile among others. PHYSICAL EXAM: Vital signs reviewed. General: Chronically ill-appearing 57-year-old male, thin and frail, in no significant distress. HEENT: No scleral icterus, PERRLA, neck supple. Dry mucous membranes. Cardiovascular: Tachycardic but regular, no extra sounds Pulmonary: Clear to auscultation bilaterally, normal work of breathing. Abdomen: Soft, nontender, nondistended, positive bowel sounds. Musculoskeletal: Atraumatic, no peripheral edema. Neurologic: Patient awake alert and oriented x 3, speech is clear Skin: Warm, dry, no rash EMERGENCY DEPARTMENT COURSE/MDM: This patient was evaluated and appeared to be in no significant distress. IV access was obtained and laboratory work was drawn. The patient was hydrated with normal saline solution. The patient was placed on the monitoring engineer noted to be in a sinus tachycardia. KUB was performed and reveals no evidence of obstruction or free air. Patient did receive IV morphine and Zofran for his discomfort. Laboratory work is significant for hyponatremia, hypocalcemia. I did discuss the case with the [facility] hospitalist, Dr. Vivas. After consultation with Dr. Herring of general surgery, he felt the patient should be discussed for transfer. I did contact the [facility] transfer center triage attending. They discussed the case with hospital medicine and colorectal surgery. They felt the patient could be managed from their perspective with outpatient procedure/treatment and remain at our facility for inpatient management of the electrolyte abnormalities. I did inform the hospitalist team at [facility] who agreed to keep the patient for further management. CT imaging of the abdomen pelvis had returned at this time and reveals a 10 cm thickened infiltrative mass of the colon and rectum. There is no evidence of acute obstruction. There is occlusion of the bilateral superficial femoral arteries. Patient is anticoagulated on Eliquis. Patient was informed of the findings and plan and agreed. MONITORING: An order for cardiac monitoring was placed and the patient is noted to be in a sinus tachycardia at 105 beats per minute. RADIOLOGY: KUB to my interpretation reveals no evidence of obstruction or free air. Otherwise defer to radiology. CT scan of the abdomen pelvis to my interpretation reveals no evidence of obstruction. Rectal/colonic thickening. Otherwise defer to radiology below. DISPOSITION: Admission Past Med/Surg History Medical History Acute deep vein thrombosis (DVT) of left lower extremity B12 deficiency Chronic back pain Chronic leg pain HIV positive Idiopathic peripheral neuropathy Migraines Nephrolithiasis Peripheral arterial disease Pulmonary embolism Tobacco abuse Surgical History H/O inguinal hernia repair History of femoropopliteal bypass Family History Other Unknown family medical history Social History Smoking Status: Never smoker Tobacco Type: Cigarettes Cigarettes Per Day: 10; Second Hand Exposure: No; Do You Dip or Chew Tobacco: No; Hx Alcohol Use: No Hx Substance Use: No Preferred Language: Kyrgyz Communication Ability: Effective Oracle Security Consultant Required: No Beliefs That Will Affect Care: None marital status: Single Current Living Situation: Alone Current Living Situation Comment: in apartment Other Information That Helps Us Care for You: No Feels Safe at Home: Yes Safety Concerns: Feels Safe At This Time Assistive Devices: None Allergies Allergies Allergy/AdvReac Type Severity Reaction Status Date / Time Sulfa (Sulfonamide Allergy Severe Severe Verified 10/13/20 18:33 Antibiotics) hives ciprofloxacin Allergy Intermediate Hives Verified 10/13/20 18:33 Home Meds Home Medications Medication Instructions Recorded Confirmed gabapentin 600 mg tablet 600 mg PO TID 10/13/20 11/29/22 B12 1 - 2 gummy PO DAILY 11/29/22 11/29/22 Biktarvy See Rx Instructions .Route .COMPLEX 11/29/22 11/29/22 apixaban 5 mg tablet (Eliquis) 5 mg PO BID 11/29/22 11/29/22 atorvastatin 40 mg tablet 40 mg PO HS 11/29/22 11/29/22 clopidogrel 75 mg tablet 75 mg PO DAILY 11/29/22 11/29/22 Results & Data (ED) Vital Signs Vital Signs - 24 hr 11/29/22 13:11 11/29/22 14:14 Pulse Rate [Right Finger] 82 80 Pulse Rhythm [Right Finger] Regular Regular Pulse Strength [Right Finger] Normal Normal Respiratory Rate 18 18 Respiratory Effort / Characteristics Non-Labored Non-Labored Respiratory Depth Normal Normal Respiratory Pattern Regular Regular Blood Pressure [Right Arm] 105/70 98/70 L Blood Pressure Mean [Right Arm] 81 79 Blood Pressure Position [Right Arm] Lying Lying Pulse Oximetry 100 99 Oxygen Delivery Method Room Air Room Air Home Medications Current Medication List: was personally reviewed by me Laboratory Data Attestation: I reviewed the patient's lab results. 11/29/22 10:54 11/29/22 17:05 Lab Results 11/29/22 11/29/22 11/29/22 Range/Units 10:54 10:54 11:43 WBC 14.69 H (4.8-10.8) K/ul RBC 4.15 L (4.70-6.10) M/uL Hgb 13.3 L (14.0-18.0) g/dl Hct 38.3 L (42.0-52.0) % MCV 92.3 (80.0-100.0) fL MCH 32.0 (25.0-34.0) pg MCHC 34.7 (32.0-36.0) g/dL RDW Std Deviation 45.7 (36.4-46.3) fL RDW Coeff of Taylor 13.6 (11.5-14.5) % Plt Count 337 (130-400) K/uL MPV 9.3 L (9.4-12.4) fL Immature Gran % (Auto) 0.4 % Neut % (Auto) 78.3 % Lymph % (Auto) 14.0 % Hudson % (Auto) 7.2 % Eos % (Auto) 0.0 % Baso % (Auto) 0.1 % Neut # (Auto) 11.51 H (1.40-6.50) K/uL Lymph # (Auto) 2.05 (1.2-3.4) K/uL Hudson # (Auto) 1.06 H (0.11-0.59) K/uL Eos # (Auto) 0.00 (0-0.50) K/uL Baso # (Auto) 0.01 (0-0.2) K/uL Immature Gran # (Auto) 0.06 (0.01-0.20) K/uL Sodium 125 L (136-145) mmol/L Potassium 3.7 (3.5-5.1) mmol/L Chloride 94 L (98-107) mmol/L Carbon Dioxide 25 (21-32) mmol/L Anion Gap 6 (3-11) BUN 20 (6-23) mg/dl Creatinine 0.89 (0.6-1.4) mg/dl Est Cr Clr Drug Dosing 66.9 ml/min Est GFR ( Amer) 109.2 ml/min Est GFR (Non-Af Amer) 94.3 ml/min BUN/Creatinine Ratio 22.5 H (10-20) Glucose 88 (70-99(Fasting)) mg/dl Lactate (0.4-2.0) mmol/L Calcium 7.2 L (8.6-10.3) mg/dl Phosphorus 2.7 (2.5-4.9) mg/dl Magnesium 1.8 (1.7-2.4) mg/dl Total Bilirubin 0.9 (0.2-1.0) mg/dl AST 25 (13-39) U/L ALT 17 (7-52) U/L Alkaline Phosphatase 91 (34-104) U/L Total Protein 4.4 L (6.0-8.3) gm/dl Albumin 1.7 L (3.4-5.0) gm/dl Globulin 2.7 (2.5-4.0) gm/dl Albumin/Globulin Ratio 0.6 L (0.9-2) Lipase < 3 L (11-82) U/L Stl C. cayetanensis PCR (NotDetected) Stool Rotavirus A PCR (NotDetected) Stl Adenov F 40/ PCR (NotDetected) Stool Astrovirus (PCR) (NotDetected) Stool Campylobacter PCR (NotDetected) Stl C. diff Tox B Gene (Neg) Stool Cryptosporidium PCR (NotDetected) Stl E.coli Shiga Tox PCR (NotDetected) Stl Enterotoxigenic E PCR (NotDetected) Stool EPEC (PCR) (NotDetected) Stool EAEC (PCR) (NotDetected) Stl E. histolytica PCR (NotDetected) Stool Giardia Lamblia PCR (NotDetected) Stool Salmonella PCR (NotDetected) Stool Sapovirus (PCR) (NotDetected) Stl P. shigelloides PCR (NotDetected) Stl Shigella/EIEC PCR (NotDetected) St Y.enterocolitica PCR (NotDetected) Stool Vibrio (PCR) (NotDetected) Stl Vibrio cholerae PCR (NotDetected) Stl Norovirus GI/GII PCR (NotDetected) SARS-CoV-2, RNA, NAAT NEGATIVE (NEGATIVE) 11/29/22 11/29/22 11/29/22 Range/Units 11:50 12:12 12:12 WBC (4.8-10.8) K/ul RBC (4.70-6.10) M/uL Hgb (14.0-18.0) g/dl Hct (42.0-52.0) % MCV (80.0-100.0) fL MCH (25.0-34.0) pg MCHC (32.0-36.0) g/dL RDW Std Deviation (36.4-46.3) fL RDW Coeff of Taylor (11.5-14.5) % Plt Count (130-400) K/uL MPV (9.4-12.4) fL Immature Gran % (Auto) % Neut % (Auto) % Lymph % (Auto) % Hudson % (Auto) % Eos % (Auto) % Baso % (Auto) % Neut # (Auto) (1.40-6.50) K/uL Lymph # (Auto) (1.2-3.4) K/uL Hudson # (Auto) (0.11-0.59) K/uL Eos # (Auto) (0-0.50) K/uL Baso # (Auto) (0-0.2) K/uL Immature Gran # (Auto) (0.01-0.20) K/uL Sodium (136-145) mmol/L Potassium (3.5-5.1) mmol/L Chloride (98-107) mmol/L Carbon Dioxide (21-32) mmol/L Anion Gap (3-11) BUN (6-23) mg/dl Creatinine (0.6-1.4) mg/dl Est Cr Clr Drug Dosing ml/min Est GFR ( Amer) ml/min Est GFR (Non-Af Amer) ml/min BUN/Creatinine Ratio (10-20) Glucose (70-99(Fasting)) mg/dl Lactate 2.1 H* (0.4-2.0) mmol/L Calcium (8.6-10.3) mg/dl Phosphorus (2.5-4.9) mg/dl Magnesium (1.7-2.4) mg/dl Total Bilirubin (0.2-1.0) mg/dl AST (13-39) U/L ALT (7-52) U/L Alkaline Phosphatase (34-104) U/L Total Protein (6.0-8.3) gm/dl Albumin (3.4-5.0) gm/dl Globulin (2.5-4.0) gm/dl Albumin/Globulin Ratio (0.9-2) Lipase (11-82) U/L Stl C. cayetanensis PCR Not Detected (NotDetected) Stool Rotavirus A PCR Not Detected (NotDetected) Stl Adenov F 40/41 PCR Not Detected (NotDetected) Stool Astrovirus (PCR) Not Detected (NotDetected) Stool Campylobacter PCR Not Detected (NotDetected) Stl C. diff Tox B Gene Negative Cdiff Gene (Neg) Stool Cryptosporidium PCR Not Detected (NotDetected) Stl E.coli Shiga Tox PCR Not Detected (NotDetected) Stl Enterotoxigenic E PCR Not Detected (NotDetected) Stool EPEC (PCR) Not Detected (NotDetected) Stool EAEC (PCR) Not Detected (NotDetected) Stl E. histolytica PCR Not Detected (NotDetected) Stool Giardia Lamblia PCR Not Detected (NotDetected) Stool Salmonella PCR Not Detected (NotDetected) Stool Sapovirus (PCR) Not Detected (NotDetected) Stl P. shigelloides PCR Not Detected (NotDetected) Stl Shigella/EIEC PCR Not Detected (NotDetected) St Y.enterocolitica PCR Not Detected (NotDetected) Stool Vibrio (PCR) Not Detected (NotDetected) Stl Vibrio cholerae PCR Not Detected (NotDetected) Stl Norovirus GI/GII PCR Not Detected (NotDetected) SARS-CoV-2, RNA, NAAT (NEGATIVE) Administered Medications Apixaban (Apixaban 5 Mg Tablet) 5 mg PO BID [facility] Stop: 12/29/22 20:59 Last Admin: 11/30/22 08:07 Dose: 5 mg Documented By: Admin: 11/29/22 20:34 Dose: 5 mg Documented By: TPB Gabapentin (Gabapentin 600 Mg Tab) 600 mg PO TID [facility] Stop: 12/29/22 20:59 Last Admin: 11/30/22 08:07 Dose: 600 mg Documented By: Admin: 11/29/22 20:34 Dose: 600 mg Documented By: TPB Hydromorphone HCl (Hydromorphone Inj 1 Mg/Ml Syringe) 1 mg IV Q4H PRN PRN Reason: sev pain not controlled w oxy Stop: 12/13/22 19:09 Last Admin: 11/30/22 03:18 Dose: 1 mg Documented By: TPB Sodium Chloride (Nss 1000ml) 1,000 mls @ 150 mls/hr IV .Q6H40M [facility] Stop: 12/29/22 11:29 Last Admin: 11/30/22 06:16 Dose: 150 mls/hr Documented By: Infusion: 11/30/22 06:16 Dose: 150 mls/hr Documented By: Infusion: 11/30/22 04:47 Dose: 150 mls/hr Documented By: Infusion: 11/30/22 04:46 Dose: 0 mls/hr Documented By: TPTahir Admin: 11/30/22 00:28 Dose: 150 mls/hr Documented By: Infusion: 11/30/22 00:28 Dose: 150 mls/hr Documented By: Admin: 11/29/22 18:12 Dose: 150 mls/hr Documented By: Infusion: 11/29/22 18:12 Dose: 150 mls/hr Documented By: Admin: 11/29/22 12:12 Dose: 150 mls/hr Documented By: MIKE Piperacillin Sod/Tazobactam (Sod 4.5 gm/ Dextrose) 120 mls @ 30 mls/hr IV Q8H KP; Protocol Stop: 12/09/22 17:29 Last Admin: 11/30/22 09:59 Dose: 30 mls/hr Documented By: Infusion: 11/30/22 06:44 Dose: 0 mls/hr Documented By: Admin: 11/30/22 02:43 Dose: 30 mls/hr Documented By: Infusion: 11/29/22 22:21 Dose: 0 mls/hr Documented By: Admin: 11/29/22 18:12 Dose: 30 mls/hr Documented By: PAUL Promethazine HCl 12.5 mg/ (Sodium Chloride) 50.5 mls @ 202 mls/hr IV Q6H PRN PRN Reason: Nausea And Vomiting Stop: 12/30/22 03:50 Last Infusion: 11/30/22 12:26 Dose: 0 mls/hr Documented By: Admin: 11/30/22 12:09 Dose: 202 mls/hr Documented By: Infusion: 11/30/22 04:47 Dose: 0 mls/hr Documented By: Admin: 11/30/22 04:17 Dose: 202 mls/hr Documented By: RAJ Melatonin (Melatonin 3 Mg Tab) 9 mg PO HS KP Stop: 12/29/22 22:29 Last Admin: 11/30/22 00:28 Dose: 9 mg Documented By: RAJ Discontinued Medications Hydromorphone HCl (Hydromorphone Inj 0.5 Mg/0.5 Ml Syr) 0.5 mg IV Q6H PRN PRN Reason: Pain Stop: 12/13/22 19:09 Last Admin: 11/29/22 20:14 Dose: 0.5 mg Documented By: TPB Hydromorphone HCl (Hydromorphone Inj 0.5 Mg/0.5 Ml Syr) 0.5 mg IV Q4H PRN PRN Reason: sev pain not controlled w oxy Stop: 12/13/22 19:09 Last Admin: 11/30/22 00:31 Dose: 0.5 mg Documented By: TPB Sodium Chloride (Nss 1000ml) 1,000 mls @ 999 mls/hr IV .Q1H1M STA Stop: 11/29/22 12:19 Last Infusion: 11/29/22 12:12 Dose: 0 mls/hr Documented By: Admin: 11/29/22 11:37 Dose: 999 mls/hr Documented By: MIKE Piperacillin Sod/Tazobactam Sod (Zosyn) 4.5 gm in 120 mls @ 240 mls/hr IV NOW ONE Stop: 11/29/22 12:32 Last Infusion: 11/29/22 13:07 Dose: 0 mls/hr Documented By: Admin: 11/29/22 12:21 Dose: 240 mls/hr Documented By: MIKE Magnesium Sulfate/Dextrose (Magnesium Sulfate / D5w) 1 gm in 100 mls @ 50 mls/h r IV Q2H KP Stop: 11/30/22 10:59 Last Infusion: 11/30/22 12:14 Dose: 0 mls/hr Documented By: Admin: 11/30/22 09:59 Dose: 50 mls/hr Documented By: Infusion: 11/30/22 09:54 Dose: 50 mls/hr Documented By: Admin: 11/30/22 07:54 Dose: 50 mls/hr Documented By: PAUL Potassium Chloride (K Angelito / Wtr) 10 meq in 100 mls @ 100 mls/hr IV Q1H KP Stop: 11/30/22 09:59 Last Infusion: 11/30/22 10:06 Dose: 0 mls/hr Documented By: Admin: 11/30/22 09:02 Dose: 100 mls/hr Documented By: Infusion: 11/30/22 09:02 Dose: 100 mls/hr Documented By: Admin: 11/30/22 08:06 Dose: 100 mls/hr Documented By: Infusion: 11/30/22 08:06 Dose: 100 mls/hr Documented By: Admin: 11/30/22 07:57 Dose: 100 mls/hr Documented By: PAUL Ioversol (Optiray 320 100ml) 94 ml IV ONCE ONE Stop: 11/29/22 14:02 Last Admin: 11/29/22 14:02 Dose: 94 ml Documented By: JOSH Morphine Sulfate (Morphine Sulfate 4 Mg/Ml 1 Ml Carp\Vial) 4 mg IV NOW STA Stop: 11/29/22 11:20 Last Admin: 11/29/22 11:36 Dose: 4 mg Documented By: MIKE Ondansetron HCl (Ondansetron Inj 2 Mg/Ml 2 Ml Vial) 4 mg IV NOW STA Stop: 11/29/22 11:20 Last Admin: 11/29/22 11:36 Dose: 4 mg Documented By: MIKE Potassium Chloride (Potassium Chloride Crtab 20 Meq Tabcr) 40 meq PO NOW STA Stop: 11/30/22 06:50 Last Admin: 11/30/22 07:54 Dose: 40 meq Documented By: PAUL Imaging Data Radiologist's Impression: KUB X-Ray 11/29/22 11:19 KUB HISTORY: Acute generalized abdominal pain with diarrhea Diarrhea COMPARISON: CT 09/04/2021 FINDINGS: Nonobstructive bowel gas pattern. Moderate fecal retention in the left hemicolon. Left common iliac arterial stent again noted. Right pelvic surgical zoe. No renal calculi. No ureteral calculi. No pneumoperitoneum or pneumatosis. No fracture. IMPRESSION: Nonobstructive bowel gas pattern. ACT 112: Negative or not required by law. The above report was generated using voice recognition software. It may contain grammatical, syntax or spelling errors. Electronically signed by: Richard Kerns M.D. 11/29/2022 1:48 PM Abdomen/Pelvis CT 11/29/22 13:[address] WITH IV CONTRAST CT DOSE: 459.22 mGy.paul HISTORY: Acute generalized abdominal pain with diarrhea. rectal mass, increased pain, diarrhea TECHNIQUE: Multiaxial CT images of the abdomen and pelvis were performed following the IV administration of 94 cc of Optiray, A dose lowering technique was utilized adhering to the principles of ALARA. COMPARISON STUDY: 09/04/2021 FINDINGS: Partially imaged left gynecomastia. Lung bases are generally clear. No pneumatosis or pneumoperitoneum. The spleen is upper limits of normal in size. Ill-defined area of decreased attenuation extending to the subcapsular margin within the inferomedial spleen measures up to proximal 5 cm, best seen on the sagittal images. Unremarkable pancreas and adrenal glands. Distended gallbladder with cholelithiasis. There are a few hypodense foci noted within the hepatic dome measuring up to 1.1 cm, stable from prior. These are favored to be benign. Patency of the hepatic and portal veins. Cortical thinning of the kidneys without hydronephrosis. There are 2 nonobstructing calculi left kidney measuring up to 4 mm. There are a few subcentimeter hypodense foci of the bilateral kidneys are too small to characterize, likely cysts. Urinary bladder wall thickening with partial d istention. Prostatomegaly. Atherosclerosis of the aorta. 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 Patent left common femoral arterial stent. 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 There is approximately 50% stenosis involving the distal portion of the left external iliac artery which is unchanged. 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 1.2 cm left inguinal chain lymph node. Heterogeneity of the testicles with hydroceles. Tiny hiatal hernia. Numerous fluid-filled loops of small bowel measure up to approximately 2.5 cm. There is a large invasive heterogeneously enhancing mass of the rectum extending to the anus measuring up to approximately 10 cm demonstrating transmural extension and with a small fistulous tract within the right ischioanal fossa. Numerous perirectal lymph nodes measure up to 8 mm. Possible extension of the mass into the posterior aspect of the prostate. Circumferential wall thickening of the sigmoid and rectosigmoid junction with mucosal uremia. There is an additional wall thickening noted throughout the asc ending and transverse colon. Surgical clips in the abdominal right lower quadrant. Moderate abdominal pelvic ascites. Noninflamed appendix. Mild generalized body wall edema. Demineralized appearance of the bones. No acute fracture. IMPRESSION: 1. Large infiltrative mass of the anus and rectum measures up to 10 cm in length with transmural extension, perianal fistula and metastatic perirectal lymph nodes. 2. No bowel obstruction or pneumoperitoneum. 3. Fluid-filled loops of small bowel may represent an ileus or enteritis. Low- grade obstruction considered less likely. 4. 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 5. Cholelithiasis with distended gallbladder. Findings could be correlated with ultrasound. 6. Moderate ascites. 7. Left nephrolithiasis. 8. Occlusion of the bilateral superficial femoral arteries. 9. Additional findings as above. ACT 112: Negative or not required by law. The above report was generated using voice recognition software. It may contain grammatical, syntax or spelling errors. Electronically signed by: Richard Kerns M.D. 11/29/2022 3:01 PM Discharge Plan Visit Data Chief Complaint: Diarrhea Stated Complaint: DIARRHEA ED Provider: Dahlia Wallace Discharge Problem: Dehydration, Hyponatremia, Hypocalcemia, Carcinoma of rectum, HIV (human immuno deficiency virus infection) Patient Disposition: Admitted As Inpatient Discharge Instructions Interventions: ED Discharge Assessment Last Done: 11/29/22 17:27
[2022-11-29] MEDS: APIXABAN 5 MG TABLET PO SCH (20:34)
[2022-11-29] MEDS: GABAPENTIN 600 MG TAB PO SCH (20:34)
[2022-11-30] MEDS: MELATONIN 3 MG TAB PO SCH ×2 (00:28→19:52)
[2022-11-30] MEDS: SODIUM CHLORIDE 0.9% 1000ML 1,000 ML IV SCH ×4 (00:28→19:55)
[2022-11-30] MEDS: PIPERACILLIN/TAZOBACTAM 4.5 GM in DEXTROSE 5% 100 ML IV SCH ×3 (02:43→17:37)
[2022-11-30] MEDS: HYDROmorphone INJ 1 MG/ML SYRINGE IV PRN ×2 (03:18→19:54)
--- NOTE | 2022-11-30 03:29 | Ultrasound Report ---
Exam(s): US ARTERIAL BILATERAL LOWER EXTREMITIES EXAM: US Duplex Bilateral Lower Extremities Arteries CLINICAL HISTORY: Reason for exam: no palpable pulses.. TECHNIQUE: Real-time duplex ultrasound scan of the bilateral lower extremity arteries integrating B-mode two-dimensional vascular structure, Doppler spectral analysis and color flow Doppler imaging. COMPARISON: 10/14/2020. FINDINGS: Right common femoral artery: Diffuse atherosclerotic disease. Decreased velocity with biphasic flow. Right superficial femoral artery: Diffuse atherosclerotic disease. Absent flow within the mid superficial femoral artery with monophasic low amplitude flow through the distal superficial femoral artery suggestive of reconstitution. Monophasic flow to the proximal superficial femoral artery. Right popliteal artery: Atherosclerotic disease. Monophasic low amplitude flow consistent with cephalad occlusion. Right calf/foot arteries: Monophasic flow through the trifurcation vessels consistent with cephalad of occlusion and reconstitution. There is flow within the right dorsalis pedis. Left common femoral artery: Diffuse atherosclerotic disease. Monophasic flow with decreased velocity. Left superficial femoral artery: Diffuse atherosclerotic disease. Absent flow within the proximal and middle superficial femoral artery consistent with occlusion. Reconstitution of the distal superficial femoral artery with monophasic flow. Left popliteal artery: No acute findings. Monophasic flow with decreased velocity through the popliteal artery consistent with distal reconstitution and cephalad occlusion of the mid proximal superficial femoral artery. Left calf/foot arteries: Diffuse atherosclerotic disease. Monophasic flow to the trifurcation vessels consistent with cephalad occlusion and reconstitution distally. The dorsalis pedis is not visualized which may indicate occlusion. The posterior tibial artery at the ankle is not visualized well with with possible occlusion. Soft tissues: Unremarkable. Exam is limited due to patient's inability to cooperate and move during the exam. IMPRESSION: Occlusion of the right distal superficial femoral artery with distal reconstitution. Occlusion of the left mid proximal superficial femoral artery with reconstitution of the distal superficial femoral artery. Flow through the trifurcation vessels bilaterally consistent with distal reconstitution. Flow within the right dorsalis pedis artery. No flow within the left dorsalis pedis which may indicate occlusion. Possible occlusion of the left distal posterior tibial artery. Communications: Call Doctor Other Electronically signed by: Monae Moy MD 11/30/22 03:28 AM
[2022-11-30] MEDS: PROMETHAZINE HCL 12.5 MG in SODIUM CHLORIDE 0.9% 50 ML IV PRN ×2 (04:17→12:09)
[2022-11-30 06:30] LABS: Calcium 6.3 mg/dl (8.6-10.3); Magnesium 1.6 mg/dl (1.7-2.4); Potassium 2.9 mmol/L (3.5-5.1)
[2022-11-30 06:36] LABS: BUN Creatinine Ratio 23.2 (10-20); Creatinine Clr Calc Pharmacy 87.6 ml/min; Est GFR (African American) 121.3 ml/min; Est GFR (Non-African American) 104.6 ml/min; Phosphorus 2.7 mg/dl (2.5-4.9)
[2022-11-30 06:43] LABS: Basophils # (auto) 0.03 K/uL (0-0.2); Basophils % (auto) 0.3 %; Eosinophils # (auto) 0.04 K/uL (0-0.50); Eosinophils % (auto) 0.4 %; Hematocrit (blood only) 34.6 % (42.0-52.0); Hemoglobin 12.1 g/dl (14.0-18.0); Immature Granulocytes # (auto) 0.05 K/uL (0.01-0.20); Immature Granulocytes % (auto) 0.4 %; Lymphocytes # (auto) 1.58 K/uL (1.2-3.4); Lymphocytes % (auto) 13.9 %; Mean Corpuscular Hemoglobin 33.2 pg (25.0-34.0); Mean Corpuscular Volume 94.8 fL (80.0-100.0); Mean Platelet Volume 9.1 fL (9.4-12.4); Monocytes # (auto) 0.77 K/uL (0.11-0.59); Monocytes % (auto) 6.8 %; Neutrophils # (auto) 8.91 K/uL (1.40-6.50); Neutrophils % (auto) 78.2 %; Platelet Count 200 K/uL (130-400); RDW Coefficient of Variation 13.5 % (11.5-14.5); Red Blood Count 3.65 M/uL (4.70-6.10); White Blood Count 11.38 K/ul (4.8-10.8)
[2022-11-30] MEDS ORDERED: POTASSIUM CHLORIDE CRTAB 20 MEQ TABCR PO STA (06:49)
[2022-11-30] MEDS: MAGNESIUM SULFATE / D5W 1 GM/100 ML BAG IV SCH ×2 (07:54→09:59)
[2022-11-30] MEDS: POTASSIUM CHLORIDE / WTR 10 MEQ/100 ML PLCT IV SCH ×3 (07:57→09:02)
[2022-11-30] MEDS: APIXABAN 5 MG TABLET PO SCH ×2 (08:07→19:52)
[2022-11-30] MEDS: GABAPENTIN 600 MG TAB PO SCH ×3 (08:07→19:52)
--- NOTE | 2022-11-30 14:51 | Palliative Care Consultation ---
Date of Consultation November 30, 2022 Assessment & Plan (1) Palliative care encounter: I talked with Mr. Palencia about how he is coping with his illness. [place] and has limited social support. He has a group of friends who he has known for thirty or more years. One friend in particular, Camacho Méndez, has been very supportive. He tells me that if he were unable to make decisions for himself, Maik would be his surrogate decision maker. He feels that Maik knows him well and would know what he would want. He tells me that he knows that his mass is cancer and tells me that he wants to get it treated so he could go back to normal. He defines normal as being able to get around his apartment and do things for himself. He has many questions about what would be involved with treatment for the cancer. We discussed the difficulty in answering that right now without a definitive diagnosis but if the cancer has spread beyond the local tumor, as we suspect, it would be difficult to help him get back to normal, particularly with his other underlying problems. He does not feel that there are any limits to what he would be willing to go through for treatment, though he did mention that he would not want a feeding tube. He is definitely interested in another biopsy for more specific diagnosis and considering options for treatment. He indicated that he may consider other limits to treatment but would want to have more discussion about what to expect before making any further decisions. History of Present Illness Reason for Consultation: goals of care Requesting Physician: BRETT Solis Attending Physician: Chris Nagel MD History of Present Illness 57 yo gentleman with history of rectal mass, PVD, neuropathy and HIV who was scheduled for biopsy of rectal mass at [facility] yesterday. He felt too ill and weak to travel to [place] and presented here for evaluation and treatment. He is found to have metabolic derangements with hyponatremia, hypokalemia, hypocalcemia and hypomagnesemia which are being replaced. 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 CT done on admission shows enlargement of anorectal mass measuring up to 10cm in length with transmural extension, perianal fistula and perirectal lymphadenopathy. He complains of perineal pain which he describes as a knife twisting inside him. He also has chronic LE pain. He takes oxycodone at home which he reports has been effective. Allergies Allergy/AdvReac Type Severity Reaction Status Date / Time Sulfa (Sulfonamide Allergy Severe Severe Verified 10/13/20 18:33 Antibiotics) hives ciprofloxacin Allergy Intermediate Hives Verified 10/13/20 18:33 Home Medications Medication Instructions Recorded Confirmed Type gabapentin 600 mg tablet 600 mg PO TID 10/13/20 11/29/22 History B12 1 - 2 gummy PO DAILY 11/29/22 11/29/22 History Biktarvy See Rx Instructions .Route .COMPLEX 11/29/22 11/29/22 History apixaban 5 mg tablet (Eliquis) 5 mg PO BID 11/29/22 11/29/22 History atorvastatin 40 mg tablet 40 mg PO HS 11/29/22 11/29/22 History clopidogrel 75 mg tablet 75 mg PO DAILY 11/29/22 11/29/22 History Patient History Medical History Acute deep vein thrombosis (DVT) of left lower extremity B12 deficiency Chronic back pain Chronic leg pain HIV positive Idiopathic peripheral neuropathy Migraines Nephrolithiasis Peripheral arterial disease Pulmonary embolism Tobacco abuse Surgical History H/O inguinal hernia repair History of femoropopliteal bypass Family History Other Unknown family medical history Social History Smoking Status: Never smoker Tobacco Type: Cigarettes Cigarettes Per Day: 10; Second Hand Exposure: No; Do You Dip or Chew Tobacco: No; Hx Alcohol Use: No Hx Substance Use: No Preferred Language: Maldivian Communication Ability: Effective High School Foreign Language Tutor Required: No Beliefs That Will Affect Care: None marital status: Single Current Living Situation: Alone Current Living Situation Comment: in apartment Other Information That Helps Us Care for You: No Feels Safe at Home: Yes Safety Concerns: Feels Safe At This Time Assistive Devices: Cane and Walker Review of Systems Review of Systems: Pain 2/3 Dyspnea 0/3 Nausea 1/3 Drowsiness 1/3 ANxiety 2/3 Physical Exam Constitutional: + cachectic ENMT: Mouth: + dry oral mucous membranes temporal wasting Respiratory: normal respiratory effort; no labored breathing Musculoskeletal: Extremities: + muscle atrophy Neurologic: Speech / Cognition: normal cognition Genitourinary: continent Results & Data Vital Signs (Past 12 Hours) Vital Signs Temp Pulse Resp BP Pulse Ox O2 Del Method 11/30/22 13:44 94 H 11/30/22 11:14 98.6 F 99 H 2 L 102/66 100 Room Air 11/30/22 08:00 Room Air 11/30/22 08:03 98.2 F 87 19 112/83 100 Room Air 11/30/22 03:00 97.5 F L 95 H 18 112/82 96 Room Air PG Care Time/CCT Total # of Minutes Spent Total Time Spent: 70 Total Time Spent with Patient: Total time spent is greater than 50% in coordination of care (as documented) at patient's floor/unit and/or counseling patient: goals of care, surrogate decision maker, patient education and support Coding Level of Care Code 20744 INT INP/OBS CARE 2/55MIN Diagnoses Palliative care encounter Z51.5
--- NOTE | 2022-11-30 16:39 | Hospitalist Progress Note ---
Date of Service November 30, 2022 Assessment & Plan (1) Mass of anus: Plan: Is been57 y/o male with severe peripheral arterial disease, HIV disease, peripheral neuropathy, prior PE, migraines, and anal mass who presented to the ED today with worsening anal pain, dehydration, weakness, and diarrhea. Symptoms have been worsening and imaging in the ED today with progression of known anal mass, likely malignancy. Discussed with surgery here who recommended transfer to [facility] for colorectal surgery evaluation. ED provider discussed with providers at [facility] who declined to accept the transfer. Pt will be admitted here to stabilize acute issues but will need biopsy GILDARDO upon discharge. Discussed pt's CT results from today in-depth with patient and his medical unit secretary including the probability that this is malignancy. Explained why a biopsy for confirmation would be important for future treatment planning. - Admitted to PCU -Initial biopsy condyloma but the margins spreading locally with increasing pain and CT evidence is suggestive of malignancy-we need definitive biopsy of the lesion for further evaluation and management plan - Pain control - ordered IV Dilaudid as limited efficacy of morphine - Clear liquid diet for now - Continue IVF for rehydration - sodium improving on repeat labs, lactate also improved - Broad-spectrum IV antibiotics for possible infection locally with increasing white count and also UA has suggestive of infection- continue Zosyn started in the ED, follow WBCs -Clinically stable and denies any acute symptoms except ongoing rectal pain -Has been tolerating liquid diet -We will need follow-up with the colorectal surgeon sooner following discharge from the hospital when he is hemodynamically stable Palliative care encounter Patient is still wants to have more opinion and plan for his anal mass (2) Hyponatremia: Plan: Likely secondary to SIADH and poor oral intake On admission sodium was 125-today it has been to 127 Has been receiving normal saline infusion for dehydration We will be monitoring PRP (3) Dehydration: Plan: We will continue with IV fluid for now (4) Malnutrition: Plan: Unable to tolerate significant oral intake due to severity of diarrhea and fecal incontinence - once symptoms better controlled, will attempt to advance diet. Consider decontamination technician johan. (5) Human immunodeficiency virus (HIV) disease: Plan: Pt currently on Biktarvy which is not available on formulary here at [facility]. Discussed with patient that ideally, he would have someone bring his medication to the hospital for pharmacy to verify so he can continue to take this while admitted. He is unsure if this will be feasible but will try tomorrow. Discussed with pharmacist - could substitute with Truvada and dolutegravir but would be changing one component of pt's regimen so not ideal. If pt is unable to have his own medication brought in, can submit a non- formulary request for approval although medication would likely not be available until Tuesday. Will need to f/u with patient and his top case assembler tomorrow. (6) Peripheral arterial disease: Plan: Arterial Doppler noted Multilevel superficial femoral artery thrombosis (7) Idiopathic peripheral neuropathy: (8) History of pulmonary embolism: Plan: We will continue Eliquis Plan Code Status: Full code DVT prophylaxis: Eliquis Admission and Anticipated Discharge Date Admission Date: November 29, 2022 Subjective 11/30/2022 The patient was seen and examined in telemetry unit Patient with history of known anal mass was admitted with increasing pain, weakness, dehydration and diarrhea Still having pain at times which is sharp in nature in the rectum Denies any significant abdominal distention does not have any nausea and or vomiting Review of Systems Review of Systems: All systems reviewed and are unremarkable except as noted below Gastrointestinal: Minimal abdominal discomfort and distention. Having occasional diarrhea Physical Exam Physical Exam: Lying in bed with annual pain Constitutional: + ill appearing and + thin Eyes: PERRL, conjunctivae normal, anicteric sclerae ENMT: external ear and nose normal, oropharynx normal Neck: trachea midline, no thyromegaly Respiratory: no respiratory distress Auscultation: lungs clear to au scultation bilaterally Cardiovascular: Rate/Rhythm: regular rate and regular rhythm; not tachycardic Heart Sounds: normal S1 and normal S2; no murmur Extremities: + edema (Trace edema bilaterally) Gastrointestinal (Abdomen): Inspection/Auscultation: + abdomen distended (Minimally distended) and normal bowel sounds Percussion/Palpation: + abdomen tender and abdomen soft Musculoskeletal: No acute arthritis involving any of the joint Neurologic: Alert, awake and intact x3. Initially very weak and lethargic Results & Data Results & Data Vital Signs (Past 12 Hours) Vital Signs Temp Pulse Resp BP Pulse Ox O2 Del Method 11/30/22 15:29 36.3 C L 97 H 16 110/84 100 Room Air 11/30/22 13:44 94 H 11/30/22 11:14 37 C 99 H 2 L 102/66 100 Room Air 11/30/22 08:00 Room Air 11/30/22 08:03 36.8 C 87 19 112/83 100 Room Air Laboratory Results Short CBC 11/30/22 Range/Units 05:27 WBC 11.38 H (4.8-10.8) K/ul Hgb 12.1 L (14.0-18.0) g/dl Hct 34.6 L (42.0-52.0) % Plt Count 200 (130-400) K/uL BMP 11/29/22 11/30/22 17:05 05:27 Sodium 128 L 127 L Potassium 3.6 2.9 L Chloride 99 102 Carbon Dioxide 24 22 BUN 18 16 Creatinine 0.75 0.69 Glucose 71 117 H Calcium 6.6 L 6.3 L Urine 11/29/22 Range/Units 17:15 Urine Color Dark Yellow Urine Appearance Clear (Clear) Urine pH 5.5 (4.5-7.5) Ur Specific Dora > 1.045 H (1.000-1.030) Urine Protein Trace H (Negative) Urine Glucose (UA) Negative (Negative) Medications Administered Current Inpatient Medications Apixaban (Apixaban 5 Mg Tablet) 5 mg PO BID [facility] Stop: 12/29/22 20:59 Last Admin: 11/30/22 08:07 Dose: 5 mg Gabapentin (Gabapentin 600 Mg Tab) 600 mg PO TID KP Stop: 12/29/22 20:59 Last Admin: 11/30/22 13:54 Dose: 600 mg Hydromorphone HCl (Hydromorphone Inj 1 Mg/Ml Syringe) 1 mg IV Q4H PRN PRN Reason: sev pain not controlled w oxy Stop: 12/13/22 19:09 Last Admin: 11/30/22 03:18 Dose: 1 mg Sodium Chloride (Nss 1000ml) 1,000 mls @ 150 mls/hr IV .Q6H40M [facility] Stop: 12/29/22 11:29 Last Admin: 11/30/22 13:54 Dose: 150 mls/hr Piperacillin Sod/Tazobactam (Sod 4.5 gm/ Dextrose) 120 mls @ 30 mls/hr IV Q8H [facility]; Protocol Stop: 12/09/22 17:29 Last Infusion: 11/30/22 13:53 Dose: Infused Promethazine HCl 12.5 mg/ (Sodium Chloride) 50.5 mls @ 202 mls/hr IV Q6H PRN PRN Reason: Nausea And Vomiting Stop: 12/30/22 03:50 Last Infusion: 11/30/22 12:26 Dose: Infused Melatonin (Melatonin 3 Mg Tab) 9 mg PO HS KP Stop: 12/29/22 22:29 Last Admin: 11/30/22 00:28 Dose: 9 mg Oxycodone HCl (Oxycodone Hcl Ir 5 Mg Tab (Immediate Release)) 5 mg PO Q4H PRN PRN Reason: mod-sev pain Stop: 12/13/22 22:21
[2022-11-30] MEDS: oxyCODONE HCL IR 5 MG TAB (IMMEDIATE RELEASE) PO PRN (17:39)
[2022-11-30] MEDS ORDERED: MELATONIN 3 MG TAB PO SCH (21:00)
[2022-12-01] MEDS: PIPERACILLIN/TAZOBACTAM 4.5 GM in DEXTROSE 5% 100 ML IV SCH ×3 (01:47→17:23)
[2022-12-01] MEDS: SODIUM CHLORIDE 0.9% 1000ML 1,000 ML IV SCH ×4 (02:39→21:49)
[2022-12-01] MEDS: oxyCODONE HCL IR 5 MG TAB (IMMEDIATE RELEASE) PO PRN ×2 (02:45→08:24)
[2022-12-01 06:14] LABS: Basophils # (auto) 0.03 K/uL (0-0.2); Basophils % (auto) 0.2 %; Eosinophils # (auto) 0.02 K/uL (0-0.50); Eosinophils % (auto) 0.2 %; Hematocrit (blood only) 39.6 % (42.0-52.0); Hemoglobin 13.4 g/dl (14.0-18.0); Immature Granulocytes # (auto) 0.06 K/uL (0.01-0.20); Immature Granulocytes % (auto) 0.5 %; Lymphocytes # (auto) 1.79 K/uL (1.2-3.4); Lymphocytes % (auto) 14.1 %; Mean Corpuscular Hemoglobin 31.9 pg (25.0-34.0); Mean Corpuscular Hgb Conc 33.8 g/dL (32.0-36.0); Mean Corpuscular Volume 94.3 fL (80.0-100.0); Mean Platelet Volume 8.6 fL (9.4-12.4); Monocytes # (auto) 0.69 K/uL (0.11-0.59); Monocytes % (auto) 5.4 %; Neutrophils # (auto) 10.15 K/uL (1.40-6.50); Neutrophils % (auto) 79.6 %; Platelet Count 247 K/uL (130-400); RDW Coefficient of Variation 13.2 % (11.5-14.5); RDW Standard Deviation 45.9 fL (36.4-46.3); White Blood Count 12.74 K/ul (4.8-10.8)
[2022-12-01 06:48] LABS: Albumin Globulin Ratio 0.6 (0.9-2); Albumin Level 1.5 gm/dl (3.4-5.0); BUN Creatinine Ratio 15.1 (10-20); Bilirubin,Total 0.7 mg/dl (0.2-1.0); Calcium 6.5 mg/dl (8.6-10.3); Creatinine Clr Calc Pharmacy 82.8 ml/min; Est GFR (African American) 118.5 ml/min; Est GFR (Non-African American) 102.2 ml/min; Globulin 2.6 gm/dl (2.5-4.0); Magnesium 1.9 mg/dl (1.7-2.4); Phosphorus 1.7 mg/dl (2.5-4.9); Potassium 3.4 mmol/L (3.5-5.1); Total Protein 4.1 gm/dl (6.0-8.3)
--- NOTE | 2022-12-01 07:59 | Ultrasound Report ---
ABDOMINAL ULTRASOUND, RIGHT UPPER QUADRANT HISTORY: Acute right upper quadrant abdominal pain r/o cholecystitis. COMPARISON: CT 11/29/2022. FINDINGS: Pancreas: The pancreas is mostly obscured by bowel gas. Liver: Suggestion mild marginal nodularity of the liver. No focal hepatic mass identified by ultrasou nd.. Moderate ascites. Gallbladder: Distended stone and sludge filled gallbladder. The gallbladder wall measures up to 3 mm. Possible 3 mm polyp of the gallbladder fundus. Sonographic Forte sign was unable to be assessed sec ondary to patient recently receiving pain medication. CBD: 0.5 cm. Right kidney: No hydronephrosis. Right pleural effusion incidentally noted. IMPRESSION: 1. Distended stone and sludge filled gallbladder with borderline wall thickening. The sonographic Mur phy's sign was unable to be assessed. Correlation with nuclear medicine hepatobiliary scan recommende d in order to exclude acute cholecystitis. 2. No biliary ductal dilation. 3. Moderate ascites with right pleural effusion. ACT 112: Negative or not required by law. Electronically signed by: Richard Kerns M.D. 12/01/2022 7:57 AM
[2022-12-01] MEDS: APIXABAN 5 MG TABLET PO SCH (08:21)
[2022-12-01] MEDS: GABAPENTIN 600 MG TAB PO SCH ×3 (08:21→20:43)
[2022-12-01] MEDS ORDERED: POTASSIUM PHOS 3 MMOL/1 ML INFUSION IV STA (08:54)
[2022-12-01] MEDS ORDERED: POTASSIUM CHLORIDE CRTAB 20 MEQ TABCR PO STA (08:54)
[2022-12-01] MEDS ORDERED: POTASSIUM PHOSPHATE 21 MMOL in SODIUM CHLORIDE 0.9% 500 ML IV ONE (09:00)
--- NOTE | 2022-12-01 10:20 | Hospitalist Progress Note ---
Date of Service December 01, 2022 Assessment & Plan (1) Mass of anus: Plan: Patient is being followed by CRS at [facility] He was scheduled for a follow up visit with his CRS on day of admission but was unable to attend his appointment due to being too weak and was taken to the ER here instead CT A/P results on admission shows large rectal mass with local extension. Case was reportedly discussed by ER provider with CRS at [facility] and his transfer was declined. I have called Radiology department to have images pushed over to [facility]. I will reach out to CRS directly to discuss his case again. In the meantime, while he is here--we will consult general surgery to follow along while he remains here at [facility]. (2) Hyponatremia: Plan: Likely due to poor oral intake Na improved with IV fluid (3) Dehydration: Plan: We will continue with IV fluid for now (4) Malnutrition: Plan: Advance diet to regular RD consult for caloric assessment, supplement recommendations (5) Human immunodeficiency virus (HIV) disease: Plan: Pt currently on Biktarvy which is not available on formulary here at [facility]. Prior provider--Discussed with patient that ideally, he would have someone bring his medication to the hospital for pharmacy to verify so he can continue to take this while admitted. He is unsure if this will be feasible but will try Discussed with pharmacist - could substitute with Truvada and dolutegravir but would be changing one component of pt's regimen so not ideal. If pt is unable to have his own medication brought in, can submit a non- formulary request for approval although medication would likely not be available until Tuesday. (6) Peripheral arterial disease: Plan: Arterial Doppler noted Multilevel superficial femoral artery thrombosis Already on Eliquis Will need follow up with vascular surgery (7) Idiopathic peripheral neuropathy: (8) History of pulmonary embolism: Plan: We will continue Eliquis (9) Epigastric pain: Plan: New. Also with odynophagia Will ask for GI consultation Plan Hypokalemia Hypophosphatemia -repleted. Repeat BMP tomorrow Code Status: Full code DVT prophylaxis: Eliquis Admission and Anticipated Discharge Date Admission Date: November 29, 2022 Subjective Feels very weak Upset that he was declined for transfer by [facility] Had 2 loose stools, fecal incontinence which causes him significant distress and makes him not want to eat Also complaining of esophageal pain with swallowing, epigastric tenderness Bloating Review of Systems Review of Systems: As above Physical Exam Physical Exam: Thin, cachetic, no acute distress ENMT: temporal muscle wasting Respiratory: Breathing comfortably on room air, no wheezing/rhonchi/rales Cardiovascular: regular rate and rhythm Gastrointestinal (Abdomen): hyperactive, no rebound or guarding, bloated + distended Musculoskeletal: no edema Genitourinary: testicular swelling external rectum with visible protruding mass, stool incontinence--stool is loose/liquid/brown, non bloody Results & Data Results & Data Vital Signs (Past 12 Hours) Vital Signs Temp Pulse Pulse Resp BP Pulse Ox O2 Del Method 12/01/22 07:28 36.9 C 86 20 105/74 99 Room Air 12/01/22 02:18 36.5 C 97 H 20 117/82 97 Room Air 12/01/22 01:20 88 11/30/22 22:58 37.0 C 88 18 98/65 L 95 Room Air
--- NOTE | 2022-12-01 10:35 | Gastrointestinal Consultation ---
Date of Consultation December 01, 2022 Assessment & Plan (1) Mass of anus: Plan - Prep today for colonoscopy tomorrow. Pt is concerned that the prep will cause N/V. Will medicate w Reglan Q6 hrs and will prescribe Zofran prn nausea. - If pt does not tolerate the prep, then will change to flex sig tomorrow w enema x 2 prior. - clear liquids po only today. NPO after midnight. - Hold eliquis Supervising Physician Co-Signing Physician Notes I saw and evaluated the patient. We were consulted for evaluation of perirectal noted on imaging. The patient has been under evaluation with a colorectal surgeon at [facility] for several months and recently had an exam under anesthesia. 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 Repeat endoscopic evaluation has been requested by the colorectal surgery service for further evaluation to determine if the patient may have anal cancer. Physical examination at Patient is quite ill-appearing, somewhat cachectic appearing Impression: Patient with a suspected anal condyloma and suspected anal cancer, repeat colonoscopy has been requested by colorectal surgery at [facility]. We will make arrangements for colonoscopy tomorrow with a regular bowel preparation. Should the patient have difficulty with the bowel prep we could certainly provide an enema to evaluate the anorectal region tomorrow. Recommendations Clear liquid diet today Stop anticoagulation Colyte bowel preparation written Colonoscopy scheduled for Please call with any questions or concerns History of Present Illness Reason for Consultation: Rectal Mass Requesting Physician: Dr. Lehman Attending Physician: Wenceslao Lehman MD History of Present Illness Mr. Maik Palencia is a 57 yr old male pt w a hx of HIV and anal mass who presented to the ED today. He has been working w colorectal surgery [facility] for dx/tx of an anal HPV mass and had an appt there for rectal exam under anesthesia yesterday but was unable to make the trip and today presented to [facility] for weakness. He reports diffuse abdominal pain,and is passing small loose BMs. He has small amts of bright red blood rectal w passing BMs, but not a lot of significant GI bleeding. He has weakness, having had a fall from bed a few days ago. He has tried colonoscopy prep in the past but had vomiting and was unable to tolerate the prep. Allergies Allergy/AdvReac Type Severity Reaction Status Date / Time Sulfa (Sulfonamide Allergy Severe Severe Verified 10/13/20 18:33 Antibiotics) hives ciprofloxacin Allergy Intermediate Hives Verified 10/13/20 18:33 Home Medications Medication Instructions Recorded Confirmed Type gabapentin 600 mg tablet 600 mg PO TID 10/13/20 11/29/22 History B12 1 - 2 gummy PO DAILY 11/29/22 11/29/22 History Biktarvy See Rx Instructions .Route .COMPLEX 11/29/22 11/29/22 History apixaban 5 mg tablet (Eliquis) 5 mg PO BID 11/29/22 11/29/22 History atorvastatin 40 mg tablet 40 mg PO HS 11/29/22 11/29/22 History clopidogrel 75 mg tablet 75 mg PO DAILY 11/29/22 11/29/22 History Patient History Medical History Acute deep vein thrombosis (DVT) of left lower extremity B12 deficiency Chronic back pain Chronic leg pain HIV positive Idiopathic peripheral neuropathy Migraines Nephrolithiasis Peripheral arterial disease Pulmonary embolism Tobacco abuse Surgical History H/O inguinal hernia repair History of femoropopliteal bypass Family History Other Unknown family medical history Social History Smoking Status: Never smoker Tobacco Type: Cigarettes Cigarettes Per Day: 10; Second Hand Exposure: No; Do You Dip or Chew Tobacco: No; Hx Alcohol Use: No Hx Substance Use: No Preferred Language: Slovak Communication Ability: Effective Dyeing Machine Feeder Required: No Beliefs That Will Affect Care: None marital status: Single Current Living Situation: Alone Current Living Situation Comment: in apartment Other Information That Helps Us Care for You: No Feels Safe at Home: Yes Safety Concerns: Feels Safe At This Time Assistive Devices: Cane and Walker Review of Systems Review of Systems: ROS: Gen: + weakness, underweight but stable; No fevers, Eyes: No eye redness, or pain, no recent vision changes Resp: Feels SOB at times; No cough or wheezing Cardio: No palpitations/irregular beats, no chest pain GI: As per HPI otherwise (-) : Denies pain on urination Skin: No jaundice, itching or new rashes Physical Exam Constitutional: + ill appearing and + cachectic; no acute distress Eyes: PERRL, conjunctivae normal, anicteric sclerae ENMT: external ear and nose normal, oropharynx normal Neck: trachea midline, no thyromegaly Respiratory: normal respiratory effort, lungs clear to auscultation Cardiovascular: RRR, no murmur, no edema Gastrointestinal (Abdomen): hypoactive BS, mild distention, mild diffuse tenderness w/o palpable mass Large, non bleeding lobular brooke/pink anal tissue visible on external inspection - consistent with condyloma. Skin: no rashes, warm and dry (except dressings on areas near sacrum) Neurologic: PERRL, EOMI, accommodation nl, no face palsy, no dysarthria Psychiatric: A+Ox3, euthymic affect sl anxious, worrisome Lymphatic: no cervical or axillary lymphadenopathy Results & Data Vital Signs (Past 12 Hours) Vital Signs Temp Pulse Pulse Resp BP Pulse Ox O2 Del Method 12/01/22 07:28 36.9 C 86 20 105/74 99 Room Air 12/01/22 02:18 36.5 C 97 H 20 117/82 97 Room Air 12/01/22 01:20 88 11/30/22 22:58 37.0 C 88 18 98/65 L 95 Room Air Laboratory Results WBC 12.7, Hb 13.4, Hct 37.6, Plts 247, Na 128, K 3.4, Cl 103, Co2 20, BUN 11, Cr 0.73, Ca 6.5, Phos 1.7. Diagnostic Findings CTAP w IV 11/30/22: MPRESSION: 1. Large infiltrative mass of the anus and rectum measures up to 10 cm in length with transmural extension, perianal fistula and metastatic perirectal lymph nodes. 2. No bowel obstruction or pneumoperitoneum. 3. Fluid-filled loops of small bowel may represent an ileus or enteritis. Low- grade obstruction considered less likely. 4. 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 5. Cholelithiasis with distended gallbladder. Findings could be correlated with ultrasound. 6. Moderate ascites. 7. Left nephrolithiasis. 8. Occlusion of the bilateral superficial femoral arteries. 9. Additional findings as above. RUQ US 12/01/22: 1. Distended stone and sludge filled gallbladder with borderline wall thickening. The sonographic Forte's sign was unable to be assessed. Correlation with nuclear medicine hepatobiliary scan recommended in order to exclude acute cholecystitis. 2. No biliary ductal dilation. 3. Moderate ascites with right pleural effusion.
[2022-12-01] MEDS ORDERED: METOCLOPRAMIDE HCL INJ 5 MG/ML 2 ML VIAL IV PRN (11:13)
[2022-12-01] MEDS ORDERED: LAVAGE SOLUTION 4000ML PO SCH ×2 (11:15→15:00)
--- NOTE | 2022-12-01 12:28 | Surgery Consultation ---
Date of Consultation December 01, 2022 Assessment & Plan (1) Carcinoma of rectum: Plan Assessment: Patient is a 57 years old gentleman who admitted to the hospital for weakness and patient had a CT scan shows rectal mass near obstruction, patient passed some diarrhea a stool today and the mild tenderness on the right side abdomen IMP: rectal mass Plan, recommend transfer pt to higher level area consult colorectal surgeon. pt agreed with transfer. I answered all questions. Katie alberto D/W hospitalist. Supervising Physician Co-Signing Physician Notes I saw and evaluated the patient. We were consulted for evaluation of perirectal noted on imaging. The patient has been under evaluation with a colorectal surgeon at [facility] for several months and recently had an exam under anesthesia. 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 Repeat endoscopic evaluation has been requested by the colorectal surgery service for further evaluation to determine if the patient may have anal cancer. Physical examination at Patient is quite ill-appearing, somewhat cachectic appearing Impression: Patient with a suspected anal condyloma and suspected anal cancer, repeat colonoscopy has been requested by colorectal surgery at [facility]. We will make arrangements for colonoscopy tomorrow with a regular bowel preparation. Should the patient have difficulty with the bowel prep we could certainly provide an enema to evaluate the anorectal region tomorrow. Recommendations Clear liquid diet today Stop anticoagulation Colyte bowel preparation written Colonoscopy scheduled for Please call with any questions or concerns History of Present Illness Reason for Consultation: rectal mass Requesting Physician: Wenceslao Lehman MD Attending Physician: Wenceslao Lehman MD History of Present Illness CC: rectal mass HPI: Patient is a 57 years old gentleman who admitted to the hospital for weakness and patient had a CT scan shows rectal mass near obstruction, patient passed some diarrhea a stool today and the mild tenderness on the right side abdomen. patient denies any nausea or vomiting, no fevers. Patient should be seen by colorectal surgeon at the [facility] on last Tuesday. But the patient feels significant weakness patient was admitted and monitored in the hospital. Now patient feels better but still has a mild right-sided abdominal pain passing gas and some diarrhea. Allergies Allergy/AdvReac Type Severity Reaction Status Date / Time Sulfa (Sulfonamide Allergy Severe Severe Verified 10/13/20 18:33 Antibiotics) hives ciprofloxacin Allergy Intermediate Hives Verified 10/13/20 18:33 Home Medications Medication Instructions Recorded Confirmed Type gabapentin 600 mg tablet 600 mg PO TID 10/13/20 11/29/22 History B12 1 - 2 gummy PO DAILY 11/29/22 11/29/22 History Biktarvy See Rx Instructions .Route .COMPLEX 11/29/22 11/29/22 History apixaban 5 mg tablet (Eliquis) 5 mg PO BID 11/29/22 11/29/22 History atorvastatin 40 mg tablet 40 mg PO HS 11/29/22 11/29/22 History clopidogrel 75 mg tablet 75 mg PO DAILY 11/29/22 11/29/22 History Patient History Medical History (Updated 12/01/22 @ 12:31 by Magali Herring MD) Acute deep vein thrombosis (DVT) of left lower extremity B12 deficiency Chronic back pain Chronic leg pain HIV positive Idiopathic peripheral neuropathy Mass in rectum rectal mass Migraines Nephrolithiasis Peripheral arterial disease Pulmonary embolism Tobacco abuse Surgical History H/O inguinal hernia repair History of femoropopliteal bypass Family History Other Unknown family medical history Social History Smoking Status: Never smoker Tobacco Type: Cigarettes Cigarettes Per Day: 10; Second Hand Exposure: No; Do You Dip or Chew Tobacco: No; Hx Alcohol Use: No Hx Substance Use: No Preferred Language: Korean Communication Ability: Effective Plaster Model And [employer] Maker Required: No Beliefs That Will Affect Care: None marital status: Single Current Living Situation: Alone Current Living Situation Comment: in apartment Other Information That Helps Us Care for You: No Feels Safe at Home: Yes Safety Concerns: Feels Safe At This Time Assistive Devices: Cane and Walker Review of Systems Constitutional: as per Subjective / HPI Eyes: as per Subjective / HPI Respiratory: Pulmonary emboli bilateral Cardiovascular: as per Subjective / HPI Gastrointestinal: rectal mass Neurologic: as per Subjective / HPI Psychiatric: as per Subjective / HPI Endocrine: as per Subjective / HPI Hematologic / Lymphatic: HIV Physical Exam Constitutional: WD/WN, vitals as above Eyes: PERRL, conjunctivae normal, anicteric sclerae Neck: trachea midline, no thyromegaly Respiratory: normal respiratory effort, lungs clear to auscultation Cardiovascular: RRR, no murmur, no edema Gastrointestinal (Abdomen): soft, mild tenderness at right side near umbilical area abdomen, no rebound pain, no distend, BS +. rectal exam rectal mass, near obstruction, can pass finger. no active bleeding, Neurologic: patellar DTR's 2+ bilat, sensation intact Psychiatric: A+Ox3, euthymic affect Results & Data Vital Signs (Past 12 Hours) Vital Signs Temp Pulse Pulse Resp BP Pulse Ox O2 Del Method 12/01/22 11:12 36.6 C 94 H 20 115/86 100 Room Air 12/01/22 07:28 36.9 C 86 20 105/74 99 Room Air 12/01/22 02:18 36.5 C 97 H 20 117/82 97 Room Air 12/01/22 01:20 88 Laboratory Results Lab Results 11/29/22 11/29/22 11/29/22 Range/Units 10:54 10:54 11:43 WBC 14.69 H (4.8-10.8) K/ul RBC 4.15 L (4.70-6.10) M/uL Hgb 13.3 L (14.0-18.0) g/dl Hct 38.3 L (42.0-52.0) % MCV 92.3 (80.0-100.0) fL MCH 32.0 (25.0-34.0) pg MCHC 34.7 (32.0-36.0) g/dL RDW Std Deviation 45.7 (36.4-46.3) fL RDW Coeff of Taylor 13.6 (11.5-14.5) % Plt Count 337 (130-400) K/uL MPV 9.3 L (9.4-12.4) fL Immature Gran % (Auto) 0.4 % Neut % (Auto) 78.3 % Lymph % (Auto) 14.0 % [place] % (Auto) 7.2 % Eos % (Auto) 0.0 % Baso % (Auto) 0.1 % Neut # (Auto) 11.51 H (1.40-6.50) K/uL Lymph # (Auto) 2.05 (1.2-3.4) K/uL [place] # (Auto) 1.06 H (0.11-0.59) K/uL Eos # (Auto) 0.00 (0-0.50) K/uL Baso # (Auto) 0.01 (0-0.2) K/uL Immature Gran # (Auto) 0.06 (0.01-0.20) K/uL Sodium 125 L (136-145) mmol/L Potassium 3.7 (3.5-5.1) mmol/L Chloride 94 L (98-107) mmol/L Carbon Dioxide 25 (21-32) mmol/L Anion Gap 6 (3-11) BUN 20 (6-23) mg/dl Creatinine 0.89 (0.6-1.4) mg/dl Est Cr Clr Drug Dosing 66.9 ml/min Est GFR ( Amer) 109.2 ml/min Est GFR (Non-Af Amer) 94.3 ml/min BUN/Creatinine Ratio 22.5 H (10-20) Glucose 88 (70-99(Fasting)) mg/dl Osmolality (280-300) mOsm/kg Lactate (0.4-2.0) mmol/L Calcium 7.2 L (8.6-10.3) mg/dl Phosphorus 2.7 (2.5-4.9) mg/dl Magnesium 1.8 (1.7-2.4) mg/dl Total Bilirubin 0.9 (0.2-1.0) mg/dl AST 25 (13-39) U/L ALT 17 (7-52) U/L Alkaline Phosphatase 91 (34-104) U/L Total Protein 4.4 L (6.0-8.3) gm/dl Albumin 1.7 L (3.4-5.0) gm/dl Globulin 2.7 (2.5-4.0) gm/dl Albumin/Globulin Ratio 0.6 L (0.9-2) Lipase < 3 L (11-82) U/L Urine Color Urine Appearance (Clear) Urine pH (4.5-7.5) Ur Specific Burt (1.000-1.030) Urine Protein (Negative) Urine Glucose (UA) (Negative) Urine Ketones (Negative) Urine Blood (Negative) Urine Nitrite (Negative) Urine Bilirubin (Negative) Urine Urobilinogen (Negative) Ur Leukocyte Esterase (Negative) Urine WBC (Auto) (0-5) /hpf Urine RBC (Auto) (0-4) /hpf U Hyaline Cast (Auto) (0-5) /lpf U Epithel Cells (Auto) (0-5) /lpf Urine Bacteria (Auto) (Negative) Urine Osmolality (500-800) mOsm/kg Ur Random Sodium mmol/L Stl C. cayetanensis PCR (NotDetected) Stool Rotavirus A PCR (NotDetected) Stl Adenov F 40/41 PCR (NotDetected) Stool Astrovirus (PCR) (NotDetected) Stool Campylobacter PCR (NotDetected) Stl C. diff Tox B Gene (Neg) Stool Cryptosporidium PCR (NotDetected) Stl E.coli Shiga Tox PCR (NotDetected) Stl Enterotoxigenic E PCR (NotDetected) Stool EPEC (PCR) (NotDetected) Stool EAEC (PCR) (NotDetected) Stl E. histolytica PCR (NotDetected) Stool Giardia Lamblia PCR (NotDetected) Stool Salmonella PCR (NotDetected) Stool Sapovirus (PCR) (NotDetected) Stl P. shigelloides PCR (NotDetected) Stl Shigella/EIEC PCR (NotDetected) St Y.enterocolitica PCR (NotDetected) Stool Vibrio (PCR) (NotDetected) Stl Vibrio cholerae PCR (NotDetected) Stl Norovirus GI/GII PCR (NotDetected) SARS-CoV-2, RNA, NAAT NEGATIVE (NEGATIVE) 11/29/22 11/29/22 11/29/22 Range/Units 11:50 12:12 12:12 WBC (4.8-10.8) K/ul RBC (4.70-6.10) M/uL Hgb (14.0-18.0) g/dl Hct (42.0-52.0) % MCV (80.0-100.0) fL MCH (25.0-34.0) pg MCHC (32.0-36.0) g/dL RDW Std Deviation (36.4-46.3) fL RDW Coeff of Taylor (11.5-14.5) % Plt Count (130-400) K/uL MPV (9.4-12.4) fL Immature Gran % (Auto) % Neut % (Auto) % Lymph % (Auto) % [place] % (Auto) % Eos % (Auto) % Baso % (Auto) % Neut # (Auto) (1.40-6.50) K/uL Lymph # (Auto) (1.2-3.4) K/uL [place] # (Auto) (0.11-0.59) K/uL Eos # (Auto) (0-0.50) K/uL Baso # (Auto) (0-0.2) K/uL Immature Gran # (Auto) (0.01-0.20) K/uL Sodium (136-145) mmol/L Potassium (3.5-5.1) mmol/L Chloride (98-107) mmol/L Carbon Dioxide (21-32) mmol/L Anion Gap (3-11) BUN (6-23) mg/dl Creatinine (0.6-1.4) mg/dl Est Cr Clr Drug Dosing ml/min Est GFR ( Amer) ml/min Est GFR (Non-Af Amer) ml/min BUN/Creatinine Ratio (10-20) Glucose (70-99(Fasting)) mg/dl Osmolality (280-300) mOsm/kg Lactate 2.1 H* (0.4-2.0) mmol/L Calcium (8.6-10.3) mg/dl Phosphorus (2.5-4.9) mg/dl Magnesium (1.7-2.4) mg/dl Total Bilirubin (0.2-1.0) mg/dl AST (13-39) U/L ALT (7-52) U/L Alkaline Phosphatase (34-104) U/L Total Protein (6.0-8.3) gm/dl Albumin (3.4-5.0) gm/dl Globulin (2.5-4.0) gm/dl Albumin/Globulin Ratio (0.9-2) Lipase (11-82) U/L Urine Color Urine Appearance (Clear) Urine pH (4.5-7.5) Ur Specific Burt (1.000-1.030) Urine Protein (Negative) Urine Glucose (UA) (Negative) Urine Ketones (Negative) Urine Blood (Negative) Urine Nitrite (Negative) Urine Bilirubin (Negative) Urine Urobilinogen (Negative) Ur Leukocyte Esterase (Negative) Urine WBC (Auto) (0-5) /hpf Urine RBC (Auto) (0-4) /hpf U Hyaline Cast (Auto) (0-5) /lpf U Epithel Cells (Auto) (0-5) /lpf Urine Bacteria (Auto) (Negative) Urine Osmolality (500-800) mOsm/kg Ur Random Sodium mmol/L Stl C. cayetanensis PCR Not Detected (NotDetected) Stool Rotavirus A PCR Not Detected (NotDetected) Stl Adenov F 40/41 PCR Not Detected (NotDetected) Stool Astrovirus (PCR) Not Detected (NotDetected) Stool Campylobacter PCR Not Detected (NotDetected) Stl C. diff Tox B Gene Negative Cdiff Gene (Neg) Stool Cryptosporidium PCR Not Detected (NotDetected) Stl E.coli Shiga Tox PCR Not Detected (NotDetected) Stl Enterotoxigenic E PCR Not Detected (NotDetected) Stool EPEC (PCR) Not Detected (NotDetected) Stool EAEC (PCR) Not Detected (NotDetected) Stl E. histolytica PCR Not Detected (NotDetected) Stool Giardia Lamblia PCR Not Detected (NotDetected) Stool Salmonella PCR Not Detected (NotDetected) Stool Sapovirus (PCR) Not Detected (NotDetected) Stl P. shigelloides PCR Not Detected (NotDetected) Stl Shigella/EIEC PCR Not Detected (NotDetected) St Y.enterocolitica PCR Not Detected (NotDetected) Stool Vibrio (PCR) Not Detected (NotDetected) Stl Vibrio cholerae PCR Not Detected (NotDetected) Stl Norovirus GI/GII PCR Not Detected (NotDetected) SARS-CoV-2, RNA, NAAT (NEGATIVE) 11/29/22 11/29/22 11/29/22 Range/Units 17:05 17:05 17:05 WBC (4.8-10.8) K/ul RBC (4.70-6.10) M/uL Hgb (14.0-18.0) g/dl Hct (42.0-52.0) % MCV (80.0-100.0) fL MCH (25.0-34.0) pg MCHC (32.0-36.0) g/dL RDW Std Deviation (36.4-46.3) fL RDW Coeff of Taylor (11.5-14.5) % Plt Count (130-400) K/uL MPV (9.4-12.4) fL Immature Gran % (Auto) % Neut % (Auto) % Lymph % (Auto) % [place] % (Auto) % Eos % (Auto) % Baso % (Auto) % Neut # (Auto) (1.40-6.50) K/uL Lymph # (Auto) (1.2-3.4) K/uL [place] # (Auto) (0.11-0.59) K/uL Eos # (Auto) (0-0.50) K/uL Baso # (Auto) (0-0.2) K/uL Immature Gran # (Auto) (0.01-0.20) K/uL Sodium 128 L (136-145) mmol/L Potassium 3.6 (3.5-5.1) mmol/L Chloride 99 (98-107) mmol/L Carbon Dioxide 24 (21-32) mmol/L Anion Gap 5 (3-11) BUN 18 (6-23) mg/dl Creatinine 0.75 (0.6-1.4) mg/dl Est Cr Clr Drug Dosing 79.4 ml/min Est GFR ( Amer) 117.2 ml/min Est GFR (Non-Af Amer) 101.1 ml/min BUN/Creatinine Ratio 24.0 H (10-20) Glucose 71 (70-99(Fasting)) mg/dl Osmolality 270 L (280-300) mOsm/kg Lactate 1.4 (0.4-2.0) mmol/L Calcium 6.6 L (8.6-10.3) mg/dl Phosphorus (2.5-4.9) mg/dl Magnesium (1.7-2.4) mg/dl Total Bilirubin (0.2-1.0) mg/dl AST (13-39) U/L ALT (7-52) U/L Alkaline Phosphatase (34-104) U/L Total Protein (6.0-8.3) gm/dl Albumin (3.4-5.0) gm/dl Globulin (2.5-4.0) gm/dl Albumin/Globulin Ratio (0.9-2) Lipase (11-82) U/L Urine Color Urine Appearance (Clear) Urine pH (4.5-7.5) Ur Specific Burt (1.000-1.030) Urine Protein (Negative) Urine Glucose (UA) (Negative) Urine Ketones (Negative) Urine Blood (Negative) Urine Nitrite (Negative) Urine Bilirubin (Negative) Urine Urobilinogen (Negative) Ur Leukocyte Esterase (Negative) Urine WBC (Auto) (0-5) /hpf Urine RBC (Auto) (0-4) /hpf U Hyaline Cast (Auto) (0-5) /lpf U Epithel Cells (Auto) (0-5) /lpf Urine Bacteria (Auto) (Negative) Urine Osmolality (500-800) mOsm/kg Ur Random Sodium mmol/L Stl C. cayetanensis PCR (NotDetected) Stool Rotavirus A PCR (NotDetected) Stl Adenov F 40/41 PCR (NotDetected) Stool Astrovirus (PCR) (NotDetected) Stool Campylobacter PCR (NotDetected) Stl C. diff Tox B Gene (Neg) Stool Cryptosporidium PCR (NotDetected) Stl E.coli Shiga Tox PCR (NotDetected) Stl Enterotoxigenic E PCR (NotDetected) Stool EPEC (PCR) (NotDetected) Stool EAEC (PCR) (NotDetected) Stl E. histolytica PCR (NotDetected) Stool Giardia Lamblia PCR (NotDetected) Stool Salmonella PCR (NotDetected) Stool Sapovirus (PCR) (NotDetected) Stl P. shigelloides PCR (NotDetected) Stl Shigella/EIEC PCR (NotDetected) St Y.enterocolitica PCR (NotDetected) Stool Vibrio (PCR) (NotDetected) Stl Vibrio cholerae PCR (NotDetected) Stl Norovirus GI/GII PCR (NotDetected) SARS-CoV-2, RNA, NAAT (NEGATIVE) 11/29/22 11/29/22 11/29/22 Range/Units 17:15 17:15 17:15 WBC (4.8-10.8) K/ul RBC (4.70-6.10) M/uL Hgb (14.0-18.0) g/dl Hct (42.0-52.0) % MCV (80.0-100.0) fL MCH (25.0-34.0) pg MCHC (32.0-36.0) g/dL RDW Std Deviation (36.4-46.3) fL RDW Coeff of Taylor (11.5-14.5) % Plt Count (130-400) K/uL MPV (9.4-12.4) fL Immature Gran % (Auto) % Neut % (Auto) % Lymph % (Auto) % [place] % (Auto) % Eos % (Auto) % Baso % (Auto) % Neut # (Auto) (1.40-6.50) K/uL Lymph # (Auto) (1.2-3.4) K/uL [place] # (Auto) (0.11-0.59) K/uL Eos # (Auto) (0-0.50) K/uL Baso # (Auto) (0-0.2) K/uL Immature Gran # (Auto) (0.01-0.20) K/uL Sodium (136-145) mmol/L Potassium (3.5-5.1) mmol/L Chloride (98-107) mmol/L Carbon Dioxide (21-32) mmol/L Anion Gap (3-11) BUN (6-23) mg/dl Creatinine (0.6-1.4) mg/dl Est Cr Clr Drug Dosing ml/min Est GFR ( Amer) ml/min Est GFR (Non-Af Amer) ml/min BUN/Creatinine Ratio (10-20) Glucose (70-99(Fasting)) mg/dl Osmolality (280-300) mOsm/kg Lactate (0.4-2.0) mmol/L Calcium (8.6-10.3) mg/dl Phosphorus (2.5-4.9) mg/dl Magnesium (1.7-2.4) mg/dl Total Bilirubin (0.2-1.0) mg/dl AST (13-39) U/L ALT (7-52) U/L Alkaline Phosphatase (34-104) U/L Total Protein (6.0-8.3) gm/dl Albumin (3.4-5.0) gm/dl Globulin (2.5-4.0) gm/dl Albumin/Globulin Ratio (0.9-2) Lipase (11-82) U/L Urine Color Dark Yellow Urine Appearance Clear (Clear) Urine pH 5.5 (4.5-7.5) Ur Specific Burt > 1.045 H (1.000-1.030) Urine Protein Trace H (Negative) Urine Glucose (UA) Negative (Negative) Urine Ketones Trace H (Negative) Urine Blood Negative (Negative) Urine Nitrite Positive A (Negative) Urine Bilirubin Negative (Negative) Urine Urobilinogen Negative (Negative) Ur Leukocyte Esterase 1+ H (Negative) Urine WBC (Auto) 10-30 H (0-5) /hpf Urine RBC (Auto) 0-4 (0-4) /hpf U Hyaline Cast (Auto) 1-5 (0-5) /lpf U Epithel Cells (Auto) 10-20 H (0-5) /lpf Urine Bacteria (Auto) 1+ H (Negative) Urine Osmolality 545 (500-800) mOsm/kg Ur Random Sodium 13 mmol/L Stl C. cayetanensis PCR (NotDetected) Stool Rotavirus A PCR (NotDetected) Stl Adenov F 40/41 PCR (NotDetected) Stool Astrovirus (PCR) (NotDetected) Stool Campylobacter PCR (NotDetected) Stl C. diff Tox B Gene (Neg) Stool Cryptosporidium PCR (NotDetected) Stl E.coli Shiga Tox PCR (NotDetected) Stl Enterotoxigenic E PCR (NotDetected) Stool EPEC (PCR) (NotDetected) Stool EAEC (PCR) (NotDetected) Stl E. histolytica PCR (NotDetected) Stool Giardia Lamblia PCR (NotDetected) Stool Salmonella PCR (NotDetected) Stool Sapovirus (PCR) (NotDetected) Stl P. shigelloides PCR (NotDetected) Stl Shigella/EIEC PCR (NotDetected) St Y.enterocolitica PCR (NotDetected) Stool Vibrio (PCR) (NotDetected) Stl Vibrio cholerae PCR (NotDetected) Stl Norovirus GI/GII PCR (NotDetected) SARS-CoV-2, RNA, NAAT (NEGATIVE) 11/30/22 11/30/22 12/01/22 Range/Units 05:27 05:27 05:38 WBC 11.38 H 12.74 H (4.8-10.8) K/ul RBC 3.65 L 4.20 L (4.70-6.10) M/uL Hgb 12.1 L 13.4 L (14.0-18.0) g/dl Hct 34.6 L 39.6 L (42.0-52.0) % MCV 94.8 94.3 (80.0-100.0) fL MCH 33.2 31.9 (25.0-34.0) pg MCHC 35.0 33.8 (32.0-36.0) g/dL RDW Std Deviation 46.0 45.9 (36.4-46.3) fL RDW Coeff of Taylor 13.5 13.2 (11.5-14.5) % Plt Count 200 247 (130-400) K/uL MPV 9.1 L 8.6 L (9.4-12.4) fL Immature Gran % (Auto) 0.4 0.5 % Neut % (Auto) 78.2 79.6 % Lymph % (Auto) 13.9 14.1 % [place] % (Auto) 6.8 5.4 % Eos % (Auto) 0.4 0.2 % Baso % (Auto) 0.3 0.2 % Neut # (Auto) 8.91 H 10.15 H (1.40-6.50) K/uL Lymph # (Auto) 1.58 1.79 (1.2-3.4) K/uL [place] # (Auto) 0.77 H 0.69 H (0.11-0.59) K/uL Eos # (Auto) 0.04 0.02 (0-0.50) K/uL Baso # (Auto) 0.03 0.03 (0-0.2) K/uL Immature Gran # (Auto) 0.05 0.06 (0.01-0.20) K/uL Sodium 127 L (136-145) mmol/L Potassium 2.9 L (3.5-5.1) mmol/L Chloride 102 (98-107) mmol/L Carbon Dioxide 22 (21-32) mmol/L Anion Gap 3 (3-11) BUN 16 (6-23) mg/dl Creatinine 0.69 (0.6-1.4) mg/dl Est Cr Clr Drug Dosing 87.6 ml/min Est GFR ( Amer) 121.3 ml/min Est GFR (Non-Af Amer) 104.6 ml/min BUN/Creatinine Ratio 23.2 H (10-20) Glucose 117 H (70-99(Fasting)) mg/dl Osmolality (280-300) mOsm/kg Lactate (0.4-2.0) mmol/L Calcium 6.3 L (8.6-10.3) mg/dl Phosphorus 2.7 (2.5-4.9) mg/dl Magnesium 1.6 L (1.7-2.4) mg/dl Total Bilirubin (0.2-1.0) mg/dl AST (13-39) U/L ALT (7-52) U/L Alkaline Phosphatase (34-104) U/L Total Protein (6.0-8.3) gm/dl Albumin (3.4-5.0) gm/dl Globulin (2.5-4.0) gm/dl Albumin/Globulin Ratio (0.9-2) Lipase (11-82) U/L Urine Color Urine Appearance (Clear) Urine pH (4.5-7.5) Ur Specific Burt (1.000-1.030) Urine Protein (Negative) Urine Glucose (UA) (Negative) Urine Ketones (Negative) Urine Blood (Negative) Urine Nitrite (Negative) Urine Bilirubin (Negative) Urine Urobilinogen (Negative) Ur Leukocyte Esterase (Negative) Urine WBC (Auto) (0-5) /hpf Urine RBC (Auto) (0-4) /hpf U Hyaline Cast (Auto) (0-5) /lpf U Epithel Cells (Auto) (0-5) /lpf Urine Bacteria (Auto) (Negative) Urine Osmolality (500-800) mOsm/kg Ur Random Sodium mmol/L Stl C. cayetanensis PCR (NotDetected) Stool Rotavirus A PCR (NotDetected) Stl Adenov F 40/41 PCR (NotDetected) Stool Astrovirus (PCR) (NotDetected) Stool Campylobacter PCR (NotDetected) Stl C. diff Tox B Gene (Neg) Stool Cryptosporidium PCR (NotDetected) Stl E.coli Shiga Tox PCR (NotDetected) Stl Enterotoxigenic E PCR (NotDetected) Stool EPEC (PCR) (NotDetected) Stool EAEC (PCR) (NotDetected) Stl E. histolytica PCR (NotDetected) Stool Giardia Lamblia PCR (NotDetected) Stool Salmonella PCR (NotDetected) Stool Sapovirus (PCR) (NotDetected) Stl P. shigelloides PCR (NotDetected) Stl Shigella/EIEC PCR (NotDetected) St Y.enterocolitica PCR (NotDetected) Stool Vibrio (PCR) (NotDetected) Stl Vibrio cholerae PCR (NotDetected) Stl Norovirus GI/GII PCR (NotDetected) SARS-CoV-2, RNA, NAAT (NEGATIVE) 12/01/22 Range/Units 05:38 WBC (4.8-10.8) K/ul RBC (4.70-6.10) M/uL Hgb (14.0-18.0) g/dl Hct (42.0-52.0) % MCV (80.0-100.0) fL MCH (25.0-34.0) pg MCHC (32.0-36.0) g/dL RDW Std Deviation (36.4-46.3) fL RDW Coeff of Taylor (11.5-14.5) % Plt Count (130-400) K/uL MPV (9.4-12.4) fL Immature Gran % (Auto) % Neut % (Auto) % Lymph % (Auto) % [place] % (Auto) % Eos % (Auto) % Baso % (Auto) % Neut # (Auto) (1.40-6.50) K/uL Lymph # (Auto) (1.2-3.4) K/uL [place] # (Auto) (0.11-0.59) K/uL Eos # (Auto) (0-0.50) K/uL Baso # (Auto) (0-0.2) K/uL Immature Gran # (Auto) (0.01-0.20) K/uL Sodium 128 L (136-145) mmol/L Potassium 3.4 L (3.5-5.1) mmol/L Chloride 103 (98-107) mmol/L Carbon Dioxide 20 L (21-32) mmol/L Anion Gap 5 (3-11) BUN 11 (6-23) mg/dl Creatinine 0.73 (0.6-1.4) mg/dl Est Cr Clr Drug Dosing 82.8 ml/min Est GFR ( Amer) 118.5 ml/min Est GFR (Non-Af Amer) 102.2 ml/min BUN/Creatinine Ratio 15.1 (10-20) Glucose 100 H (70-99(Fasting)) mg/dl Osmolality (280-300) mOsm/kg Lactate (0.4-2.0) mmol/L Calcium 6.5 L (8.6-10.3) mg/dl Phosphorus 1.7 L D (2.5-4.9) mg/dl Magnesium 1.9 (1.7-2.4) mg/dl Total Bilirubin 0.7 (0.2-1.0) mg/dl AST 22 (13-39) U/L ALT 21 (7-52) U/L Alkaline Phosphatase 90 (34-104) U/L Total Protein 4.1 L (6.0-8.3) gm/dl Albumin 1.5 L (3.4-5.0) gm/dl Globulin 2.6 (2.5-4.0) gm/dl Albumin/Globulin Ratio 0.6 L (0.9-2) Lipase (11-82) U/L Urine Color Urine Appearance (Clear) Urine pH (4.5-7.5) Ur Specific Burt (1.000-1.030) Urine Protein (Negative) Urine Glucose (UA) (Negative) Urine Ketones (Negative) Urine Blood (Negative) Urine Nitrite (Negative) Urine Bilirubin (Negative) Urine Urobilinogen (Negative) Ur Leukocyte Esterase (Negative) Urine WBC (Auto) (0-5) /hpf Urine RBC (Auto) (0-4) /hpf U Hyaline Cast (Auto) (0-5) /lpf U Epithel Cells (Auto) (0-5) /lpf Urine Bacteria (Auto) (Negative) Urine Osmolality (500-800) mOsm/kg Ur Random Sodium mmol/L Stl C. cayetanensis PCR (NotDetected) Stool Rotavirus A PCR (NotDetected) Stl Adenov F 40/41 PCR (NotDetected) Stool Astrovirus (PCR) (NotDetected) Stool Campylobacter PCR (NotDetected) Stl C. diff Tox B Gene (Neg) Stool Cryptosporidium PCR (NotDetected) Stl E.coli Shiga Tox PCR (NotDetected) Stl Enterotoxigenic E PCR (NotDetected) Stool EPEC (PCR) (NotDetected) Stool EAEC (PCR) (NotDetected) Stl E. histolytica PCR (NotDetected) Stool Giardia Lamblia PCR (NotDetected) Stool Salmonella PCR (NotDetected) Stool Sapovirus (PCR) (NotDetected) Stl P. shigelloides PCR (NotDetected) Stl Shigella/EIEC PCR (NotDetected) St Y.enterocolitica PCR (NotDetected) Stool Vibrio (PCR) (NotDetected) Stl Vibrio cholerae PCR (NotDetected) Stl Norovirus GI/GII PCR (NotDetected) SARS-CoV-2, RNA, NAAT (NEGATIVE) Diagnostic Findings ABDOMEN AND PELVIS CT WITH IV CONTRAST CT DOSE: 459.22 mGy.cm HISTORY: Acute generalized abdominal pain with diarrhea. rectal mass, increased pain, diarrhea TECHNIQUE: Multiaxial CT images of the abdomen and pelvis were performed following the IV administration of 94 cc of Optiray, A dose lowering technique was utilized adhering to the principles of ALARA. COMPARISON STUDY: 09/04/2021 FINDINGS: Partially imaged left gynecomastia. Lung bases are generally clear. No pneumatosis or pneumoperitoneum. The spleen is upper limits of normal in size. Ill-defined area of decreased attenuation extending to the subcapsular margin within the inferomedial spleen measures up to proximal 5 cm, best seen on the sagittal images. Unremarkable pancreas and adrenal glands. Distended gallbladder with cholelithiasis. There are a few hypodense foci noted within the hepatic dome measuring up to 1.1 cm, stable from prior. These are favored to be benign. Patency of the hepatic and portal veins. Cortical thinning of the kidneys without hydronephrosis. There are 2 nonobstructing calculi left kidney measuring up to 4 mm. There are a few subcentimeter hypodense foci of the bilateral kidneys are too small to characterize, likely cysts. Urinary bladder wall thickening with partial distention. Prostatomegaly. Atherosclerosis of the aorta. 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 Patent left common femoral arterial stent. 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 There is approximately 50% stenosis involving the distal portion of the left external iliac artery which is unchanged. 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 1.2 cm left inguinal chain lymph node. Heterogeneity of the testicles with hydroceles. Tiny hiatal hernia. Numerous fluid-filled loops of small bowel measure up to approximately 2.5 cm. There is a large invasive heterogeneously enhancing mass of the rectum extending to the anus measuring up to approximately 10 cm demonstrating transmural extension and with a small fistulous tract within the right ischioanal fossa. Numerous perirectal lymph nodes measure up to 8 mm. Possible extension of the mass into the posterior aspect of the prostate. Circumferential wall thickening of the sigmoid and rectosigmoid junction with mucosal uremia. There is an additional wall thickening noted throughout the ascending and transverse colon. Surgical clips in the abdominal right lower quadrant. Moderate abdominal pelvic ascites. Noninflamed appendix. Mild generalized body wall edema. Demineralized appearance of the bones. No acute fracture. IMPRESSION: 1. Large infiltrative mass of the anus and rectum measures up to 10 cm in length with transmural extension, perianal fistula and metastatic perirectal lymph nodes. 2. No bowel obstruction or pneumoperitoneum. 3. Fluid-filled loops of small bowel may represent an ileus or enteritis. Low- grade obstruction considered less likely. 4. 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 5. Cholelithiasis with distended gallbladder. Findings could be correlated with ultrasound. 6. Moderate ascites. 7. Left nephrolithiasis. 8. Occlusion of the bilateral superficial femoral arteries. 9. Additional findings as above. ABDOMINAL ULTRASOUND, RIGHT UPPER QUADRANT HISTORY: Acute right upper quadrant abdominal pain r/o cholecystitis. COMPARISON: CT 11/29/2022. FINDINGS: Pancreas: The pancreas is mostly obscured by bowel gas. Liver: Suggestion mild marginal nodularity of the liver. No focal hepatic mass identified by ultrasound.. Moderate ascites. Gallbladder: Distended stone and sludge filled gallbladder. The gallbladder wall measures up to 3 mm. Possible 3 mm polyp of the gallbladder fundus. Sonographic Forte sign was unable to be assessed secondary to patient recently receiving pain medication. CBD: 0.5 cm. Right kidney: No hydronephrosis. Right pleural effusion incidentally noted. IMPRESSION: 1. Distended stone and sludge filled gallbladder with borderline wall thickening. The sonographic Forte's sign was unable to be assessed. Correlation with nuclear medicine hepatobiliary scan recommended in order to exclude acute cholecystitis. 2. No biliary ductal dilation. 3. Moderate ascites with right pleural effusion.
[2022-12-01] MEDS: HYDROmorphone INJ 1 MG/ML SYRINGE IV PRN (12:48)
[2022-12-01] MEDS: ONDANSETRON INJ 2 MG/ML 2 ML VIAL IV PRN ×2 (12:48→21:22)
[2022-12-01] MEDS: MELATONIN 3 MG TAB PO SCH (20:43)
[2022-12-02] MEDS: PIPERACILLIN/TAZOBACTAM 4.5 GM in DEXTROSE 5% 100 ML IV SCH ×3 (01:04→17:09)
[2022-12-02] MEDS: SODIUM CHLORIDE 0.9% 1000ML 1,000 ML IV SCH ×2 (06:02→14:27)
[2022-12-02 06:35] LABS: Basophils # (auto) 0.02 K/uL (0-0.2); Basophils % (auto) 0.2 %; Eosinophils # (auto) 0.01 K/uL (0-0.50); Eosinophils % (auto) 0.1 %; Hematocrit (blood only) 37.8 % (42.0-52.0); Hemoglobin 12.9 g/dl (14.0-18.0); Immature Granulocytes # (auto) 0.04 K/uL (0.01-0.20); Immature Granulocytes % (auto) 0.4 %; Lymphocytes # (auto) 1.29 K/uL (1.2-3.4); Lymphocytes % (auto) 11.5 %; Mean Corpuscular Hemoglobin 31.2 pg (25.0-34.0); Mean Corpuscular Hgb Conc 34.1 g/dL (32.0-36.0); Mean Corpuscular Volume 91.3 fL (80.0-100.0); Mean Platelet Volume 8.8 fL (9.4-12.4); Monocytes # (auto) 0.65 K/uL (0.11-0.59); Monocytes % (auto) 5.8 %; Neutrophils # (auto) 9.19 K/uL (1.40-6.50); Platelet Count 238 K/uL (130-400); RDW Coefficient of Variation 13.2 % (11.5-14.5); RDW Standard Deviation 43.9 fL (36.4-46.3); Red Blood Count 4.14 M/uL (4.70-6.10)
[2022-12-02 06:51] LABS: Anion Gap 4 (3-11); BUN Creatinine Ratio 12.9 (10-20); Blood Urea Nitrogen 8 mg/dl (6-23); Calcium 6.4 mg/dl (8.6-10.3); Carbon Dioxide 19 mmol/L (21-32); Chloride 106 mmol/L (98-107); Creatinine Clr Calc Pharmacy 97.5 ml/min; Est GFR (African American) 126.7 ml/min; Est GFR (Non-African American) 109.3 ml/min; Glucose 105 mg/dl (70-99(Fasting)); Potassium 3.2 mmol/L (3.5-5.1); Sodium 129 mmol/L (136-145)
[2022-12-02 06:52] LABS: Alanine Aminotransferase 23 U/L (7-52); Albumin Level < 1.5 gm/dl (3.4-5.0); Alkaline Phosphatase 86 U/L (34-104); Aspartate Aminotransferase 21 U/L (13-39); Bilirubin,Total 0.7 mg/dl (0.2-1.0); Magnesium 1.6 mg/dl (1.7-2.4); Total Protein 3.9 gm/dl (6.0-8.3)
[2022-12-02] MEDS: GABAPENTIN 600 MG TAB PO SCH ×3 (08:13→20:55)
--- NOTE | 2022-12-02 09:02 | Anesthesiology Consultation ---
Date of Service December 02, 2022 Assessment & Plan (1) Encounter for pre-operative examination: Chart Review Chart Review: Acceptable Risk for Surgery, Patient NOT seen in Pre Admission Testing and direct entry midwife initiated History Surgery Operation Date: 12/02/22 16:30 Proposed Procedures p Colonoscopy Dr Yosef Navas, Height/Weight Height: 5 ft 8 in Weight: 53.1 kg Allergies Allergy/AdvReac Type Severity Reaction Status Date / Time Sulfa (Sulfonamide Allergy Severe Severe Verified 10/13/20 18:33 Antibiotics) hives ciprofloxacin Allergy Intermediate Hives Verified 10/13/20 18:33 Medications Home Medications Medication Instructions Recorded Confirmed Last Taken gabapentin 600 mg tablet 600 mg PO TID 10/13/20 11/29/22 10/13/20 08:00 B12 1 - 2 gummy PO DAILY 11/29/22 11/29/22 Unknown Biktarvy See Rx Instructions .Route .COMPLEX 11/29/22 11/29/22 Unknown apixaban 5 mg tablet (Eliquis) 5 mg PO BID 11/29/22 11/29/22 Unknown atorvastatin 40 mg tablet 40 mg PO HS 11/29/22 11/29/22 Unknown clopidogrel 75 mg tablet 75 mg PO DAILY 11/29/22 11/29/22 Unknown Active Medications Generic Name Dose Route Start Last Admin Trade Name Yonyq PRN Reason Stop Dose Admin Gabapentin 600 mg 11/29/22 21:00 12/02/22 08:13 Gabapentin 600 Mg Tab PO 12/29/22 20:59 Not Given TID KP Hydromorphone HCl 1 mg 11/30/22 02:57 12/01/22 12:48 Hydromorphone Inj 1 Mg/Ml Syringe IV 12/13/22 19:09 1 mg Q4H PRN Administration sev pain not controlled w oxy Sodium Chloride 1,000 mls @ 150 mls/hr 11/29/22 11:30 12/02/22 06:02 Nss 1000ml IV 12/29/22 11:29 150 mls/hr .Q6H40M KP Administration Piperacillin Sod/Tazobactam 120 mls @ 30 mls/hr 11/29/22 17:30 12/02/22 05:44 Sod 4.5 gm/ Dextrose IV 12/09/22 17:29 Infused Q8H KP Infusion Protocol Melatonin 9 mg 11/29/22 22:30 07/26/23 20:43 Melatonin 3 Mg Tab PO 12/29/22 22:29 9 mg HS KP Administration Ondansetron HCl 4 mg 12/01/22 11:35 12/01/22 21:22 Ondansetron Inj 2 Mg/Ml 2 Ml Vial IV 12/31/22 11:34 4 mg Q4H PRN Administration Nausea Oxycodone HCl 5 mg 11/29/22 22:22 12/01/22 08:24 Oxycodone Hcl Ir 5 Mg Tab (Immediate Release) PO 12/13/22 22:21 5 mg Q4H PRN Administration mod-sev pain Past Medical History Medical History (Updated 12/02/22 @ 09:05 by Waylon Lawson MD) Acute deep vein thrombosis (DVT) of left lower extremity B12 deficiency Chronic back pain Chronic leg pain Encounter for pre-operative examination HIV positive Idiopathic peripheral neuropathy Mass in rectum rectal mass Migraines Nephrolithiasis Peripheral arterial disease Pulmonary embolism Tobacco abuse Past Family History Family History Other Unknown family medical history Past Surgical History Surgical History H/O inguinal hernia repair History of femoropopliteal bypass Social History Smoking Status: Never smoker tobacco type: cigarettes Smoking cigarettes per day: 10 Do You Dip or Chew Tobacco: No Hx Alcohol Use: No Alcohol type: hard liquor alcohol intake frequency: holidays/special occasions only Hx Substance Use: No substance use type: does not use Physical Exam Vital Signs Last Vital Signs Temp 36.3 C L 12/02/22 08:37 Pulse 102 H 12/02/22 08:37 Resp 16 12/02/22 08:37 BP 117/87 12/02/22 08:37 Pulse Ox 99 12/02/22 08:37 O2 Del Method Room Air 12/02/22 03:00 Testing Laboratory Results 12/02/22 06:13 12/02/22 06:13 Urine Color Dark Yellow 11/29/22 17:15 Urine Appearance Clear (Clear) 11/29/22 17:15 Urine pH 5.5 (4.5-7.5) 11/29/22 17:15 Ur Specific [place] > 1.045 (1.000-1.030) H 11/29/22 17:15 Urine Protein Trace (Negative) H 11/29/22 17:15 Urine Glucose (UA) Negative (Negative) 11/29/22 17:15 Urine Ketones Trace (Negative) H 11/29/22 17:15 Urine Nitrite Positive (Negative) A 11/29/22 17:15 Ur Leukocyte Esterase 1+ (Negative) H 11/29/22 17:15 Urine WBC (Auto) 10-30 /hpf (0-5) H 11/29/22 17:15 Urine RBC (Auto) 0-4 /hpf (0-4) 11/29/22 17:15 U Hyaline Cast (Auto) 1-5 /lpf (0-5) 11/29/22 17:15 U Epithel Cells (Auto) 10-20 /lpf (0-5) H 11/29/22 17:15 Urine Bacteria (Auto) 1+ (Negative) H 11/29/22 17:15 11/29/22 17:15 Urine Culture - Preliminary Urine,Clean Catch Escherichia coli Electrocardiogram Date: 10/13/20 Test Reason : Blood Pressure : / mmHG Vent. Rate : 068 BPM Atrial Rate : 068 BPM P-R Int : 154 ms QRS Dur : 094 ms QT Int : 396 ms P-R-T Axes : 054 052 050 degrees QTc Int : 421 ms Poor data quality, interpretation may be adversely affected Normal sinus rhythm Septal infarct (cited on or before 17-JUL-2018) Nonspecific ST abnormality Abnormal ECG When compared with ECG of 17-JUL-2018 16:00, No significant change was found Confirmed by Nolan Jimenez ([id number]) on 10/15/2020 5:40:16 AM Chest X-Ray Date: 09/04/21 XR chest 1V portable HISTORY: Nausea. Vomiting. Diarrhea. COMPARISON: Chest 07/09/2013. FINDINGS: The lungs are clear. The heart is normal in size. No pleural effusions. No pneumothorax. IMPRESSION: No acute process. Echocardiogram Date: 07/18/18 EF: 60-65 LV Function: normal RWMA: + none Other Findings: + LVH (mild) and + diastolic dysfunction (grade 2) Valvular Disease: + no significant valvular disease
[2022-12-02] MEDS ORDERED: MAGNESIUM SULFATE / D5W 1 GM/100 ML BAG IV ONE (09:36)
[2022-12-02] MEDS: POTASSIUM CHLORIDE / WTR 10 MEQ/100 ML PLCT IV SCH ×2 (10:04→12:36)
--- NOTE | 2022-12-02 10:39 | History & Physical Bridge Note ---
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 The risks of the procedure have been discussed with the patient to include bleeding infection perforation pain and need for emergency surgery.
[2022-12-02] MEDS ORDERED: PROPOFOL IV EMULSION 10 MG/ML 20 ML VIAL IV ONE (11:26)
[2022-12-02] MEDS ORDERED: LIDOCAINE 2% 2 ML VIAL/AMP(20MG/ML) INFIL ONE (11:26)
--- NOTE | 2022-12-02 11:28 | Communication Note ---
Date of Service: December 02, 2022 Patient underwent a sigmoidoscopy today. We were attempting to do colonoscopy however the patient's bowel preparation was too limited to do a full examinat ion. In addition the patient has an almost obstructing anal mass, I was unable to pass a scope through it, we were able to use the lowest diameter upper endoscope this was able to provide limited biopsies of the mass. Recommendations Highly recommend referral to a tertiary care center with colorectal surgery support as the patient may benefit from an ostomy given the nearly obstructing anal mass.
--- NOTE | 2022-12-02 11:34 | GI REPORT ---
Patient Name: Maik Palencia Procedure Date: 12/02/2022 10:50 AM Date of : 1965 Admit Type: Inpatient Age: 57 Gender: Male Attending MD: Debbie Navas DO, Procedure: Colonoscopy Providers: Debbie Navas DO Referring MD: Giovanna Lehman Md Indications: Abnormal CT of the GI tract Medicines: Monitored Anesthesia Care Complications: No immediate complications. Estimated blood loss: Minimal. Estimated Blood Loss: Estimated blood loss was minimal. Procedure: Pre-Anesthesia Assessment: - Prior to the procedure, a History and Physical was performed, and patient medications, allergies and sensitivities were reviewed. The patient's tolerance of previous anesthesia was reviewed. - The risks and benefits of the procedure and the sedation options and risks were discussed with the patient. All questions were answered and informed consent was obtained. - Patient identification and proposed procedure were verified prior to the procedure by the physician, the nurse and the percussion instrument tuner. The procedure was verified in the procedure room. - Pre-procedure physical examination revealed no contraindications to sedation. - ASA Grade Assessment: III - A patient with severe systemic disease. - After reviewing the risks and benefits, the patient was deemed in satisfactory condition to undergo the procedure. - The anesthesia plan was to use monitored anesthesia care (MAC). - Immediately prior to administration of medications, the patient was re-assessed for adequacy to receive sedatives. - The heart rate, respiratory rate, oxygen saturations, blood pressure, adequacy of pulmonary ventilation, and response to care were monitored throughout the procedure. - The physical status of the patient was re-assessed after the procedure. After I obtained informed consent, the scope was passed under direct vision. Throughout the procedure, the patient's blood pressure, pulse, and oxygen saturations were monitored continuously. The Endoscope was introduced through the anus and advanced to the descending colon. The colonoscopy was performed with difficulty due to a partially obstructing mass and poor bowel prep. The patient tolerated the procedure well. The quality of the bowel preparation was poor. Findings: The rectal exam findings include anal condyloma. I was unable to pass my finger due to stenosis of the region. A fungating and ulcerated partially obstructing large mass was found at the anus. The mass was circumferential and could not be passed with a colonic stricture scope, we therefore transitioned to the upper endoscopic stricture scope which was able to pass through the lumen. The mass measured four cm in length. Oozing was present. Biopsies were taken with a cold forceps for histology. The pathology specimen was placed into Bottle A. Estimated blood loss was minimal. Impression: - Preparation of the colon was poor. 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 - Likely malignant partially obstructing tumor at the anus. Biopsied. Recommendation: - [facility]. - Refer to a colo-rectal surgeon as patient may require an ostomy while awaiting decisions about long-term therapy for his anal condyloma and suspected anal cancer. Debbie Navas D.O. Debbie Nvaas, DO 12/02/2022 11:33:33 AM This report has been signed electronically. Note Initiated On: 12/02/2022 10:50 AM Number of Addenda: 0 I attest to the content of the Intraoperative Record and orders documented therein, exceptions below {[id number]}
--- NOTE | 2022-12-02 12:25 | Anesthesiology Progress Note ---
Date of Service December 02, 2022 Anesthesia Post Procedure Vital Signs Vital Signs: Temp Pulse Pulse Resp BP Pulse Ox O2 Del Method 12/02/22 11:59 98 H 16 123/83 99 Room Air 12/02/22 11:44 97 H 16 130/90 95 Room Air 12/02/22 11:30 103 H 16 112/84 96 Room Air 12/02/22 10:46 36.3 C L 101 H 16 137/96 97 Room Air 12/02/22 08:37 36.3 C L 102 H 16 117/87 99 12/02/22 07:00 96 H 12/02/22 03:00 36.4 C L 102 H 20 126/74 95 Room Air 12/02/22 00:22 101 H 12/01/22 22:19 36.4 C L 100 H 20 114/42 L 97 Room Air 12/01/22 19:00 36.6 C 96 H 20 96/54 L 98 Room Air 12/01/22 16:22 36.9 C 100 H 20 130/84 100 Room Air 12/01/22 16:13 100 H 12/01/22 16:00 112 H Pain Intensity Left Abdomen: Pain Intensity: 8 Transfer of Care Handoff Completed per policy Notes Mental Status: alert / awake / arousable and participated in evaluation Patient Amnestic to Procedure: Yes Nausea / Vomiting: adequately controlled Pain: adequately controlled Airway Patency, RR, SpO2: stable & adequate BP & HR: stable & adequate Hydration State: stable & adequate Anesthetic Complications: no major complications apparent
[2022-12-02] MEDS: ONDANSETRON INJ 2 MG/ML 2 ML VIAL IV PRN (15:23)
[2022-12-02] MEDS ORDERED: ALBUT/IPRATROP 3MG/0.5MG NEB 3 ML VIAL NEB PRN (15:34)
[2022-12-02] MEDS ORDERED: FUROSEMIDE INJ 20 MG/2 ML VIAL IV ONE (16:01)
--- NOTE | 2022-12-02 16:22 | XRay Report ---
XR chest 1V portable HISTORY: Shortness of breath. COMPARISON: Chest 09/04/2021. FINDINGS: No pneumothorax. The cardiac silhouette is normal in size. Old posttraumatic changes again noted within the distal right clavicle. Hazy bibasilar densities. This may represent small pleural ef fusions or airspace opacities. There is mild central pulmonary vascular congestion without overt roz a. IMPRESSION: 1. There are hazy bibasilar densities. This could represent small layering pleural effusions or airsp elizabet opacities. 2. Mild central pulmonary vascular congestion without overt edema. ACT 112: Negative or not required by law. Electronically signed by: Amari Robins M.D. 12/02/2022 4:20 PM
[2022-12-02] MEDS: HYDROmorphone INJ 1 MG/ML SYRINGE IV PRN (16:23)
--- NOTE | 2022-12-02 16:24 | XRay Report ---
KUB HISTORY: vomiting COMPARISON: KUB 11/29/2022. FINDINGS: A left common iliac artery stent is again noted. Suture material seen within the right groi n. A few borderline dilated gas-filled loops of large and small bowel seen throughout the abdomen. Th is favors a mild ileus. No evidence for a bowel obstruction at this time. No renal calculi. No urete ral calculi. No pneumoperitoneum or pneumatosis. IMPRESSION: A few borderline dilated gas-filled loops of large and small bowel seen throughout the abdomen. This favors an ileus. ACT 112: Negative or not required by law. Electronically signed by: Amari Robins M.D. 12/02/2022 4:23 PM
[2022-12-02 16:28] LABS: Base Excess ABG -10.5 mEq/L (-9-1.8); HCO3 ABG 14 mmol/L (19-24); Oxygen Saturation ABG 97.6 % (90-95); PCO2 ABG 25 mmHg (35-46); PO2 ABG 103 mmHg (80-95); pH ABG 7.34 (7.35-7.45)
[2022-12-02 16:29] LABS: Allen Test Pos (Pos)
[2022-12-02 16:43] LABS: Basophils # (auto) 0.02 K/uL (0-0.2); Basophils % (auto) 0.1 %; Hematocrit (blood only) 35.3 % (42.0-52.0); Hemoglobin 12.2 g/dl (14.0-18.0); Immature Granulocytes % (auto) 0.6 %; Lymphocytes # (auto) 1.31 K/uL (1.2-3.4); Lymphocytes % (auto) 7.6 %; Mean Corpuscular Hemoglobin 31.3 pg (25.0-34.0); Mean Corpuscular Hgb Conc 34.6 g/dL (32.0-36.0); Mean Corpuscular Volume 90.5 fL (80.0-100.0); Mean Platelet Volume 8.7 fL (9.4-12.4); Monocytes # (auto) 0.83 K/uL (0.11-0.59); Monocytes % (auto) 4.8 %; Neutrophils # (auto) 15.01 K/uL (1.40-6.50); Neutrophils % (auto) 86.9 %; Platelet Count 293 K/uL (130-400); RDW Coefficient of Variation 13.5 % (11.5-14.5); RDW Standard Deviation 44.6 fL (36.4-46.3); White Blood Count 17.27 K/ul (4.8-10.8)
[2022-12-02 16:55] LABS: BUN Creatinine Ratio 13.8 (10-20); Calcium 6.4 mg/dl (8.6-10.3); Creatinine Clr Calc Pharmacy 104.3 ml/min; Est GFR (African American) 130.3 ml/min; Est GFR (Non-African American) 112.4 ml/min; Magnesium 1.7 mg/dl (1.7-2.4); Potassium 3.4 mmol/L (3.5-5.1)
[2022-12-02] MEDS: PANTOprazole 40 MG in DEXTROSE 5% 100 ML IV SCH ×2 (16:58→21:12)
[2022-12-02 17:02] LABS: Troponin I High Sensitivity 8.2 pg/ml (0-20)
--- NOTE | 2022-12-02 17:52 | Surgery Progress Note ---
Date of Service December 02, 2022 Assessment & Plan (1) Carcinoma of rectum: Plan Assessment: Patient is a 57 years old gentleman who admitted to the hospital for weakness and patient had a CT scan shows rectal mass near obstruction, patient passed some diarrhea a stool today and the mild tenderness on the right side abdomen IMP: rectal mass Plan, recommend transfer pt to higher level area consult colorectal surgeon. pt agreed with transfer. I answered all questions. Katie alberto D/W hospitalist. 12/02/2022 5:[address] Herring S/P colonoscopy , rectal mass biopsy- pathology pending, Plan, recommend transfer pt to higher level area consult colorectal surgeon. pt agreed with transfer. I answered all questions. I D/W hospitalist Dr. Lehman. [facility] accepted pt, waiting bed. Admission and Anticipated Discharge Date Admission Date: November 29, 2022 Supervising Physician Co-Signing Physician Notes I saw and evaluated the patient. We were consulted for evaluation of perirectal noted on imaging. The patient has been under evaluation with a colorectal surgeon at [facility] for several months and recently had an exam under anesthesia. 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 Repeat endoscopic evaluation has been requested by the colorectal surgery service for further evaluation to determine if the patient may have anal cancer. Physical examination at Patient is quite ill-appearing, somewhat cachectic appearing Impression: Patient with a suspected anal condyloma and suspected anal cancer, repeat colonoscopy has been requested by colorectal surgery at [facility]. We will make arrangements for colonoscopy tomorrow with a regular bowel preparation. Should the patient have difficulty with the bowel prep we could certainly provide an enema to evaluate the anorectal region tomorrow. Recommendations Clear liquid diet today Stop anticoagulation Colyte bowel preparation written Colonoscopy scheduled for Please call with any questions or concerns Subjective Feels very weak Upset that he was declined for transfer by [facility] Had 2 loose stools, fecal incontinence which causes him significant distress and makes him not want to eat Also complaining of esophageal pain with swallowing, epigastric tenderness Bloating 12/02/2022 5:[address] Herring passed some loose stool, some abdominal pain, no nausea, no vomiting, pt had colonoscopy with biopsy rectal mass. Review of Systems Constitutional: as per Subjective / HPI Eyes: as per Subjective / HPI Respiratory: Pulmonary emboli bilateral Cardiovascular: as per Subjective / HPI Gastrointestinal: rectal mass Neurologic: as per Subjective / HPI Psychiatric: as per Subjective / HPI Endocrine: as per Subjective / HPI Hematologic / Lymphatic: HIV Physical Exam Constitutional: WD/WN, vitals as above Eyes: PERRL, conjunctivae normal, anicteric sclerae Neck: trachea midline, no thyromegaly Respiratory: normal respiratory effort, lungs clear to auscultation Cardiovascular: RRR, no murmur, no edema Gastrointestinal (Abdomen): mild tenderness periumbilical area, no rebound pain, no distend, BS +. Neurologic: patellar DTR's 2+ bilat, sensation intact Psychiatric: A+Ox3, euthymic affect Results & Data Vital Signs (Past 12 Hours) Vital Signs Temp Pulse Pulse Resp BP Pulse Ox O2 Del Method 12/02/22 15:40 119 H 24 94 Room Air 12/02/22 15:10 36.2 C L 120 H 24 137/85 96 Room Air 12/02/22 12:30 36.6 C 96 H 14 112/78 95 Room Air 12/02/22 11:59 98 H 16 123/83 99 Room Air 12/02/22 11:44 97 H 16 130/90 95 Room Air 12/02/22 11:30 103 H 16 112/84 96 Room Air 12/02/22 10:46 36.3 C L 101 H 16 137/96 97 Room Air 12/02/22 08:37 36.3 C L 102 H 16 117/87 99 12/02/22 07:00 96 H Laboratory Results Lab Results 11/29/22 11/29/22 11/29/22 Range/Units 10:54 10:54 11:43 WBC 14.69 H (4.8-10.8) K/ul RBC 4.15 L (4.70-6.10) M/uL Hgb 13.3 L (14.0-18.0) g/dl Hct 38.3 L (42.0-52.0) % MCV 92.3 (80.0-100.0) fL MCH 32.0 (25.0-34.0) pg MCHC 34.7 (32.0-36.0) g/dL RDW Std Deviation 45.7 (36.4-46.3) fL RDW Coeff of Taylor 13.6 (11.5-14.5) % Plt Count 337 (130-400) K/uL MPV 9.3 L (9.4-12.4) fL Immature Gran % (Auto) 0.4 % Neut % (Auto) 78.3 % Lymph % (Auto) 14.0 % Carbon % (Auto) 7.2 % Eos % (Auto) 0.0 % Baso % (Auto) 0.1 % Neut # (Auto) 11.51 H (1.40-6.50) K/uL Lymph # (Auto) 2.05 (1.2-3.4) K/uL Carbon # (Auto) 1.06 H (0.11-0.59) K/uL Eos # (Auto) 0.00 (0-0.50) K/uL Baso # (Auto) 0.01 (0-0.2) K/uL Immature Gran # (Auto) 0.06 (0.01-0.20) K/uL ABG pH (7.35-7.45) ABG pCO2 (35-46) mmHg ABG pO2 (80-95) mmHg ABG HCO3 (19-24) mmol/L ABG O2 Saturation (90-95) % ABG Base Excess (-9-1.8) mEq/L Camacho Test (Pos) Oxygen Given Sodium 125 L (136-145) mmol/L Potassium 3.7 (3.5-5.1) mmol/L Chloride 94 L (98-107) mmol/L Carbon Dioxide 25 (21-32) mmol/L Anion Gap 6 (3-11) BUN 20 (6-23) mg/dl Creatinine 0.89 (0.6-1.4) mg/dl Est Cr Clr Drug Dosing 66.9 ml/min Est GFR ( Amer) 109.2 ml/min Est GFR (Non-Af Amer) 94.3 ml/min BUN/Creatinine Ratio 22.5 H (10-20) Glucose 88 (70-99(Fasting)) mg/dl Osmolality (280-300) mOsm/kg Lactate (0.4-2.0) mmol/L Calcium 7.2 L (8.6-10.3) mg/dl Phosphorus 2.7 (2.5-4.9) mg/dl Magnesium 1.8 (1.7-2.4) mg/dl Total Bilirubin 0.9 (0.2-1.0) mg/dl AST 25 (13-39) U/L ALT 17 (7-52) U/L Alkaline Phosphatase 91 (34-104) U/L Troponin I High Sens (0-20) pg/ml Total Protein 4.4 L (6.0-8.3) gm/dl Albumin 1.7 L (3.4-5.0) gm/dl Globulin 2.7 (2.5-4.0) gm/dl Albumin/Globulin Ratio 0.6 L (0.9-2) Lipase < 3 L (11-82) U/L Urine Color Urine Appearance (Clear) Urine pH (4.5-7.5) Ur Specific [place] (1.000-1.030) Urine Protein (Negative) Urine Glucose (UA) (Negative) Urine Ketones (Negative) Urine Blood (Negative) Urine Nitrite (Negative) Urine Bilirubin (Negative) Urine Urobilinogen (Negative) Ur Leukocyte Esterase (Negative) Urine WBC (Auto) (0-5) /hpf Urine RBC (Auto) (0-4) /hpf U Hyaline Cast (Auto) (0-5) /lpf U Epithel Cells (Auto) (0-5) /lpf Urine Bacteria (Auto) (Negative) Urine Osmolality (500-800) mOsm/kg Ur Random Sodium mmol/L Stl C. cayetanensis PCR (NotDetected) Stool Rotavirus A PCR (NotDetected) Stl Adenov F 40/41 PCR (NotDetected) Stool Astrovirus (PCR) (NotDetected) Stool Campylobacter PCR (NotDetected) Stl C. diff Tox B Gene (Neg) Stool Cryptosporidium PCR (NotDetected) Stl E.coli Shiga Tox PCR (NotDetected) Stl Enterotoxigenic E PCR (NotDetected) Stool EPEC (PCR) (NotDetected) Stool EAEC (PCR) (NotDetected) Stl E. histolytica PCR (NotDetected) Stool Giardia Lamblia PCR (NotDetected) Stool Salmonella PCR (NotDetected) Stool Sapovirus (PCR) (NotDetected) Stl P. shigelloides PCR (NotDetected) Stl Shigella/EIEC PCR (NotDetected) St Y.enterocolitica PCR (NotDetected) Stool Vibrio (PCR) (NotDetected) Stl Vibrio cholerae PCR (NotDetected) Stl Norovirus GI/GII PCR (NotDetected) SARS-CoV-2, RNA, NAAT NEGATIVE (NEGATIVE) 11/29/22 11/29/22 11/29/22 Range/Units 11:50 12:12 12:12 WBC (4.8-10.8) K/ul RBC (4.70-6.10) M/uL Hgb (14.0-18.0) g/dl Hct (42.0-52.0) % MCV (80.0-100.0) fL MCH (25.0-34.0) pg MCHC (32.0-36.0) g/dL RDW Std Deviation (36.4-46.3) fL RDW Coeff of Taylor (11.5-14.5) % Plt Count (130-400) K/uL MPV (9.4-12.4) fL Immature Gran % (Auto) % Neut % (Auto) % Lymph % (Auto) % Carbon % (Auto) % Eos % (Auto) % Baso % (Auto) % Neut # (Auto) (1.40-6.50) K/uL Lymph # (Auto) (1.2-3.4) K/uL Carbon # (Auto) (0.11-0.59) K/uL Eos # (Auto) (0-0.50) K/uL Baso # (Auto) (0-0.2) K/uL Immature Gran # (Auto) (0.01-0.20) K/uL ABG pH (7.35-7.45) ABG pCO2 (35-46) mmHg ABG pO2 (80-95) mmHg ABG HCO3 (19-24) mmol/L ABG O2 Saturation (90-95) % ABG Base Excess (-9-1.8) mEq/L Camacho Test (Pos) Oxygen Given Sodium (136-145) mmol/L Potassium (3.5-5.1) mmol/L Chloride (98-107) mmol/L Carbon Dioxide (21-32) mmol/L Anion Gap (3-11) BUN (6-23) mg/dl Creatinine (0.6-1.4) mg/dl Est Cr Clr Drug Dosing ml/min Est GFR ( Amer) ml/min Est GFR (Non-Af Amer) ml/min BUN/Creatinine Ratio (10-20) Glucose (70-99(Fasting)) mg/dl Osmolality (280-300) mOsm/kg Lactate 2.1 H* (0.4-2.0) mmol/L Calcium (8.6-10.3) mg/dl Phosphorus (2.5-4.9) mg/dl Magnesium (1.7-2.4) mg/dl Total Bilirubin (0.2-1.0) mg/dl AST (13-39) U/L ALT (7-52) U/L Alkaline Phosphatase (34-104) U/L Troponin I High Sens (0-20) pg/ml Total Protein (6.0-8.3) gm/dl Albumin (3.4-5.0) gm/dl Globulin (2.5-4.0) gm/dl Albumin/Globulin Ratio (0.9-2) Lipase (11-82) U/L Urine Color Urine Appearance (Clear) Urine pH (4.5-7.5) Ur Specific [place] (1.000-1.030) Urine Protein (Negative) Urine Glucose (UA) (Negative) Urine Ketones (Negative) Urine Blood (Negative) Urine Nitrite (Negative) Urine Bilirubin (Negative) Urine Urobilinogen (Negative) Ur Leukocyte Esterase (Negative) Urine WBC (Auto) (0-5) /hpf Urine RBC (Auto) (0-4) /hpf U Hyaline Cast (Auto) (0-5) /lpf U Epithel Cells (Auto) (0-5) /lpf Urine Bacteria (Auto) (Negative) Urine Osmolality (500-800) mOsm/kg Ur Random Sodium mmol/L Stl C. cayetanensis PCR Not Detected (NotDetected) Stool Rotavirus A PCR Not Detected (NotDetected) Stl Adenov F 40/41 PCR Not Detected (NotDetected) Stool Astrovirus (PCR) Not Detected (NotDetected) Stool Campylobacter PCR Not Detected (NotDetected) Stl C. diff Tox B Gene Negative Cdiff Gene (Neg) Stool Cryptosporidium PCR Not Detected (NotDetected) Stl E.coli Shiga Tox PCR Not Detected (NotDetected) Stl Enterotoxigenic E PCR Not Detected (NotDetected) Stool EPEC (PCR) Not Detected (NotDetected) Stool EAEC (PCR) Not Detected (NotDetected) Stl E. histolytica PCR Not Detected (NotDetected) Stool Giardia Lamblia PCR Not Detected (NotDetected) Stool Salmonella PCR Not Detected (NotDetected) Stool Sapovirus (PCR) Not Detected (NotDetected) Stl P. shigelloides PCR Not Detected (NotDetected) Stl Shigella/EIEC PCR Not Detected (NotDetected) St Y.enterocolitica PCR Not Detected (NotDetected) Stool Vibrio (PCR) Not Detected (NotDetected) Stl Vibrio cholerae PCR Not Detected (NotDetected) Stl Norovirus GI/GII PCR Not Detected (NotDetected) SARS-CoV-2, RNA, NAAT (NEGATIVE) 11/29/22 11/29/22 11/29/22 Range/Units 17:05 17:05 17:05 WBC (4.8-10.8) K/ul RBC (4.70-6.10) M/uL Hgb (14.0-18.0) g/dl Hct (42.0-52.0) % MCV (80.0-100.0) fL MCH (25.0-34.0) pg MCHC (32.0-36.0) g/dL RDW Std Deviation (36.4-46.3) fL RDW Coeff of Taylor (11.5-14.5) % Plt Count (130-400) K/uL MPV (9.4-12.4) fL Immature Gran % (Auto) % Neut % (Auto) % Lymph % (Auto) % Carbon % (Auto) % Eos % (Auto) % Baso % (Auto) % Neut # (Auto) (1.40-6.50) K/uL Lymph # (Auto) (1.2-3.4) K/uL Carbon # (Auto) (0.11-0.59) K/uL Eos # (Auto) (0-0.50) K/uL Baso # (Auto) (0-0.2) K/uL Immature Gran # (Auto) (0.01-0.20) K/uL ABG pH (7.35-7.45) ABG pCO2 (35-46) mmHg ABG pO2 (80-95) mmHg ABG HCO3 (19-24) mmol/L ABG O2 Saturation (90-95) % ABG Base Excess (-9-1.8) mEq/L Camacho Test (Pos) Oxygen Given Sodium 128 L (136-145) mmol/L Potassium 3.6 (3.5-5.1) mmol/L Chloride 99 (98-107) mmol/L Carbon Dioxide 24 (21-32) mmol/L Anion Gap 5 (3-11) BUN 18 (6-23) mg/dl Creatinine 0.75 (0.6-1.4) mg/dl Est Cr Clr Drug Dosing 79.4 ml/min Est GFR ( Amer) 117.2 ml/min Est GFR (Non-Af Amer) 101.1 ml/min BUN/Creatinine Ratio 24.0 H (10-20) Glucose 71 (70-99(Fasting)) mg/dl Osmolality 270 L (280-300) mOsm/kg Lactate 1.4 (0.4-2.0) mmol/L Calcium 6.6 L (8.6-10.3) mg/dl Phosphorus (2.5-4.9) mg/dl Magnesium (1.7-2.4) mg/dl Total Bilirubin (0.2-1.0) mg/dl AST (13-39) U/L ALT (7-52) U/L Alkaline Phosphatase (34-104) U/L Troponin I High Sens (0-20) pg/ml Total Protein (6.0-8.3) gm/dl Albumin (3.4-5.0) gm/dl Globulin (2.5-4.0) gm/dl Albumin/Globulin Ratio (0.9-2) Lipase (11-82) U/L Urine Color Urine Appearance (Clear) Urine pH (4.5-7.5) Ur Specific [place] (1.000-1.030) Urine Protein (Negative) Urine Glucose (UA) (Negative) Urine Ketones (Negative) Urine Blood (Negative) Urine Nitrite (Negative) Urine Bilirubin (Negative) Urine Urobilinogen (Negative) Ur Leukocyte Esterase (Negative) Urine WBC (Auto) (0-5) /hpf Urine RBC (Auto) (0-4) /hpf U Hyaline Cast (Auto) (0-5) /lpf U Epithel Cells (Auto) (0-5) /lpf Urine Bacteria (Auto) (Negative) Urine Osmolality (500-800) mOsm/kg Ur Random Sodium mmol/L Stl C. cayetanensis PCR (NotDetected) Stool Rotavirus A PCR (NotDetected) Stl Adenov F 40/41 PCR (NotDetected) Stool Astrovirus (PCR) (NotDetected) Stool Campylobacter PCR (NotDetected) Stl C. diff Tox B Gene (Neg) Stool Cryptosporidium PCR (NotDetected) Stl E.coli Shiga Tox PCR (NotDetected) Stl Enterotoxigenic E PCR (NotDetected) Stool EPEC (PCR) (NotDetected) Stool EAEC (PCR) (NotDetected) Stl E. histolytica PCR (NotDetected) Stool Giardia Lamblia PCR (NotDetected) Stool Salmonella PCR (NotDetected) Stool Sapovirus (PCR) (NotDetected) Stl P. shigelloides PCR (NotDetected) Stl Shigella/EIEC PCR (NotDetected) St Y.enterocolitica PCR (NotDetected) Stool Vibrio (PCR) (NotDetected) Stl Vibrio cholerae PCR (NotDetected) Stl Norovirus GI/GII PCR (NotDetected) SARS-CoV-2, RNA, NAAT (NEGATIVE) 11/29/22 11/29/22 11/29/22 Range/Units 17:15 17:15 17:15 WBC (4.8-10.8) K/ul RBC (4.70-6.10) M/uL Hgb (14.0-18.0) g/dl Hct (42.0-52.0) % MCV (80.0-100.0) fL MCH (25.0-34.0) pg MCHC (32.0-36.0) g/dL RDW Std Deviation (36.4-46.3) fL RDW Coeff of Taylor (11.5-14.5) % Plt Count (130-400) K/uL MPV (9.4-12.4) fL Immature Gran % (Auto) % Neut % (Auto) % Lymph % (Auto) % Carbon % (Auto) % Eos % (Auto) % Baso % (Auto) % Neut # (Auto) (1.40-6.50) K/uL Lymph # (Auto) (1.2-3.4) K/uL Carbon # (Auto) (0.11-0.59) K/uL Eos # (Auto) (0-0.50) K/uL Baso # (Auto) (0-0.2) K/uL Immature Gran # (Auto) (0.01-0.20) K/uL ABG pH (7.35-7.45) ABG pCO2 (35-46) mmHg ABG pO2 (80-95) mmHg ABG HCO3 (19-24) mmol/L ABG O2 Saturation (90-95) % ABG Base Excess (-9-1.8) mEq/L Camacho Test (Pos) Oxygen Given Sodium (136-145) mmol/L Potassium (3.5-5.1) mmol/L Chloride (98-107) mmol/L Carbon Dioxide (21-32) mmol/L Anion Gap (3-11) BUN (6-23) mg/dl Creatinine (0.6-1.4) mg/dl Est Cr Clr Drug Dosing ml/min Est GFR ( Amer) ml/min Est GFR (Non-Af Amer) ml/min BUN/Creatinine Ratio (10-20) Glucose (70-99(Fasting)) mg/dl Osmolality (280-300) mOsm/kg Lactate (0.4-2.0) mmol/L Calcium (8.6-10.3) mg/dl Phosphorus (2.5-4.9) mg/dl Magnesium (1.7-2.4) mg/dl Total Bilirubin (0.2-1.0) mg/dl AST (13-39) U/L ALT (7-52) U/L Alkaline Phosphatase (34-104) U/L Troponin I High Sens (0-20) pg/ml Total Protein (6.0-8.3) gm/dl Albumin (3.4-5.0) gm/dl Globulin (2.5-4.0) gm/dl Albumin/Globulin Ratio (0.9-2) Lipase (11-82) U/L Urine Color Dark Yellow Urine Appearance Clear (Clear) Urine pH 5.5 (4.5-7.5) Ur Specific [place] > 1.045 H (1.000-1.030) Urine Protein Trace H (Negative) Urine Glucose (UA) Negative (Negative) Urine Ketones Trace H (Negative) Urine Blood Negative (Negative) Urine Nitrite Positive A (Negative) Urine Bilirubin Negative (Negative) Urine Urobilinogen Negative (Negative) Ur Leukocyte Esterase 1+ H (Negative) Urine WBC (Auto) 10-30 H (0-5) /hpf Urine RBC (Auto) 0-4 (0-4) /hpf U Hyaline Cast (Auto) 1-5 (0-5) /lpf U Epithel Cells (Auto) 10-20 H (0-5) /lpf Urine Bacteria (Auto) 1+ H (Negative) Urine Osmolality 545 (500-800) mOsm/kg Ur Random Sodium 13 mmol/L Stl C. cayetanensis PCR (NotDetected) Stool Rotavirus A PCR (NotDetected) Stl Adenov F 40/41 PCR (NotDetected) Stool Astrovirus (PCR) (NotDetected) Stool Campylobacter PCR (NotDetected) Stl C. diff Tox B Gene (Neg) Stool Cryptosporidium PCR (NotDetected) Stl E.coli Shiga Tox PCR (NotDetected) Stl Enterotoxigenic E PCR (NotDetected) Stool EPEC (PCR) (NotDetected) Stool EAEC (PCR) (NotDetected) Stl E. histolytica PCR (NotDetected) Stool Giardia Lamblia PCR (NotDetected) Stool Salmonella PCR (NotDetected) Stool Sapovirus (PCR) (NotDetected) Stl P. shigelloides PCR (NotDetected) Stl Shigella/EIEC PCR (NotDetected) St Y.enterocolitica PCR (NotDetected) Stool Vibrio (PCR) (NotDetected) Stl Vibrio cholerae PCR (NotDetected) Stl Norovirus GI/GII PCR (NotDetected) SARS-CoV-2, RNA, NAAT (NEGATIVE) 07/25/23 07/25/23 07/26/23 Range/Units 05:27 05:27 05:38 WBC 11.38 H 12.74 H (4.8-10.8) K/ul RBC 3.65 L 4.20 L (4.70-6.10) M/uL Hgb 12.1 L 13.4 L (14.0-18.0) g/dl Hct 34.6 L 39.6 L (42.0-52.0) % MCV 94.8 94.3 (80.0-100.0) fL MCH 33.2 31.9 (25.0-34.0) pg MCHC 35.0 33.8 (32.0-36.0) g/dL RDW Std Deviation 46.0 45.9 (36.4-46.3) fL RDW Coeff of Taylor 13.5 13.2 (11.5-14.5) % Plt Count 200 247 (130-400) K/uL MPV 9.1 L 8.6 L (9.4-12.4) fL Immature Gran % (Auto) 0.4 0.5 % Neut % (Auto) 78.2 79.6 % Lymph % (Auto) 13.9 14.1 % Carbon % (Auto) 6.8 5.4 % Eos % (Auto) 0.4 0.2 % Baso % (Auto) 0.3 0.2 % Neut # (Auto) 8.91 H 10.15 H (1.40-6.50) K/uL Lymph # (Auto) 1.58 1.79 (1.2-3.4) K/uL Carbon # (Auto) 0.77 H 0.69 H (0.11-0.59) K/uL Eos # (Auto) 0.04 0.02 (0-0.50) K/uL Baso # (Auto) 0.03 0.03 (0-0.2) K/uL Immature Gran # (Auto) 0.05 0.06 (0.01-0.20) K/uL ABG pH (7.35-7.45) ABG pCO2 (35-46) mmHg ABG pO2 (80-95) mmHg ABG HCO3 (19-24) mmol/L ABG O2 Saturation (90-95) % ABG Base Excess (-9-1.8) mEq/L Camacho Test (Pos) Oxygen Given Sodium 127 L (136-145) mmol/L Potassium 2.9 L (3.5-5.1) mmol/L Chloride 102 (98-107) mmol/L Carbon Dioxide 22 (21-32) mmol/L Anion Gap 3 (3-11) BUN 16 (6-23) mg/dl Creatinine 0.69 (0.6-1.4) mg/dl Est Cr Clr Drug Dosing 87.6 ml/min Est GFR ( Amer) 121.3 ml/min Est GFR (Non-Af Amer) 104.6 ml/min BUN/Creatinine Ratio 23.2 H (10-20) Glucose 117 H (70-99(Fasting)) mg/dl Osmolality (280-300) mOsm/kg Lactate (0.4-2.0) mmol/L Calcium 6.3 L (8.6-10.3) mg/dl Phosphorus 2.7 (2.5-4.9) mg/dl Magnesium 1.6 L (1.7-2.4) mg/dl Total Bilirubin (0.2-1.0) mg/dl AST (13-39) U/L ALT (7-52) U/L Alkaline Phosphatase (34-104) U/L Troponin I High Sens (0-20) pg/ml Total Protein (6.0-8.3) gm/dl Albumin (3.4-5.0) gm/dl Globulin (2.5-4.0) gm/dl Albumin/Globulin Ratio (0.9-2) Lipase (11-82) U/L Urine Color Urine Appearance (Clear) Urine pH (4.5-7.5) Ur Specific [place] (1.000-1.030) Urine Protein (Negative) Urine Glucose (UA) (Negative) Urine Ketones (Negative) Urine Blood (Negative) Urine Nitrite (Negative) Urine Bilirubin (Negative) Urine Urobilinogen (Negative) Ur Leukocyte Esterase (Negative) Urine WBC (Auto) (0-5) /hpf Urine RBC (Auto) (0-4) /hpf U Hyaline Cast (Auto) (0-5) /lpf U Epithel Cells (Auto) (0-5) /lpf Urine Bacteria (Auto) (Negative) Urine Osmolality (500-800) mOsm/kg Ur Random Sodium mmol/L Stl C. cayetanensis PCR (NotDetected) Stool Rotavirus A PCR (NotDetected) Stl Adenov F 40/41 PCR (NotDetected) Stool Astrovirus (PCR) (NotDetected) Stool Campylobacter PCR (NotDetected) Stl C. diff Tox B Gene (Neg) Stool Cryptosporidium PCR (NotDetected) Stl E.coli Shiga Tox PCR (NotDetected) Stl Enterotoxigenic E PCR (NotDetected) Stool EPEC (PCR) (NotDetected) Stool EAEC (PCR) (NotDetected) Stl E. histolytica PCR (NotDetected) Stool Giardia Lamblia PCR (NotDetected) Stool Salmonella PCR (NotDetected) Stool Sapovirus (PCR) (NotDetected) Stl P. shigelloides PCR (NotDetected) Stl Shigella/EIEC PCR (NotDetected) St Y.enterocolitica PCR (NotDetected) Stool Vibrio (PCR) (NotDetected) Stl Vibrio cholerae PCR (NotDetected) Stl Norovirus GI/GII PCR (NotDetected) SARS-CoV-2, RNA, NAAT (NEGATIVE) 12/01/22 12/02/22 12/02/22 Range/Units 05:38 06:13 06:13 WBC 11.20 H (4.8-10.8) K/ul RBC 4.14 L (4.70-6.10) M/uL Hgb 12.9 L (14.0-18.0) g/dl Hct 37.8 L (42.0-52.0) % MCV 91.3 (80.0-100.0) fL MCH 31.2 (25.0-34.0) pg MCHC 34.1 (32.0-36.0) g/dL RDW Std Deviation 43.9 (36.4-46.3) fL RDW Coeff of Taylor 13.2 (11.5-14.5) % Plt Count 238 (130-400) K/uL MPV 8.8 L (9.4-12.4) fL Immature Gran % (Auto) 0.4 % Neut % (Auto) 82.0 % Lymph % (Auto) 11.5 % Carbon % (Auto) 5.8 % Eos % (Auto) 0.1 % Baso % (Auto) 0.2 % Neut # (Auto) 9.19 H (1.40-6.50) K/uL Lymph # (Auto) 1.29 (1.2-3.4) K/uL Carbon # (Auto) 0.65 H (0.11-0.59) K/uL Eos # (Auto) 0.01 (0-0.50) K/uL Baso # (Auto) 0.02 (0-0.2) K/uL Immature Gran # (Auto) 0.04 (0.01-0.20) K/uL ABG pH (7.35-7.45) ABG pCO2 (35-46) mmHg ABG pO2 (80-95) mmHg ABG HCO3 (19-24) mmol/L ABG O2 Saturation (90-95) % ABG Base Excess (-9-1.8) mEq/L Camacho Test (Pos) Oxygen Given Sodium 128 L 129 L (136-145) mmol/L Potassium 3.4 L 3.2 L (3.5-5.1) mmol/L Chloride 103 106 (98-107) mmol/L Carbon Dioxide 20 L 19 L (21-32) mmol/L Anion Gap 5 4 (3-11) BUN 11 8 (6-23) mg/dl Creatinine 0.73 0.62 (0.6-1.4) mg/dl Est Cr Clr Drug Dosing 82.8 97.5 ml/min Est GFR ( Amer) 118.5 126.7 ml/min Est GFR (Non-Af Amer) 102.2 109.3 ml/min BUN/Creatinine Ratio 15.1 12.9 (10-20) Glucose 100 H 105 H (70-99(Fasting)) mg/dl Osmolality (280-300) mOsm/kg Lactate (0.4-2.0) mmol/L Calcium 6.5 L 6.4 L (8.6-10.3) mg/dl Phosphorus 1.7 L D (2.5-4.9) mg/dl Magnesium 1.9 1.6 L (1.7-2.4) mg/dl Total Bilirubin 0.7 0.7 (0.2-1.0) mg/dl AST 22 21 (13-39) U/L ALT 21 23 (7-52) U/L Alkaline Phosphatase 90 86 (34-104) U/L Troponin I High Sens (0-20) pg/ml Total Protein 4.1 L 3.9 L (6.0-8.3) gm/dl Albumin 1.5 L < 1.5 L (3.4-5.0) gm/dl Globulin 2.6 TNP (2.5-4.0) gm/dl Albumin/Globulin Ratio 0.6 L TNP (0.9-2) Lipase (11-82) U/L Urine Color Urine Appearance (Clear) Urine pH (4.5-7.5) Ur Specific [place] (1.000-1.030) Urine Protein (Negative) Urine Glucose (UA) (Negative) Urine Ketones (Negative) Urine Blood (Negative) Urine Nitrite (Negative) Urine Bilirubin (Negative) Urine Urobilinogen (Negative) Ur Leukocyte Esterase (Negative) Urine WBC (Auto) (0-5) /hpf Urine RBC (Auto) (0-4) /hpf U Hyaline Cast (Auto) (0-5) /lpf U Epithel Cells (Auto) (0-5) /lpf Urine Bacteria (Auto) (Negative) Urine Osmolality (500-800) mOsm/kg Ur Random Sodium mmol/L Stl C. cayetanensis PCR (NotDetected) Stool Rotavirus A PCR (NotDetected) Stl Adenov F 40/41 PCR (NotDetected) Stool Astrovirus (PCR) (NotDetected) Stool Campylobacter PCR (NotDetected) Stl C. diff Tox B Gene (Neg) Stool Cryptosporidium PCR (NotDetected) Stl E.coli Shiga Tox PCR (NotDetected) Stl Enterotoxigenic E PCR (NotDetected) Stool EPEC (PCR) (NotDetected) Stool EAEC (PCR) (NotDetected) Stl E. histolytica PCR (NotDetected) Stool Giardia Lamblia PCR (NotDetected) Stool Salmonella PCR (NotDetected) Stool Sapovirus (PCR) (NotDetected) Stl P. shigelloides PCR (NotDetected) Stl Shigella/EIEC PCR (NotDetected) St Y.enterocolitica PCR (NotDetected) Stool Vibrio (PCR) (NotDetected) Stl Vibrio cholerae PCR (NotDetected) Stl Norovirus GI/GII PCR (NotDetected) SARS-CoV-2, RNA, NAAT (NEGATIVE) 12/02/22 12/02/22 12/02/22 Range/Units 16:18 16:18 16:18 WBC 17.27 H (4.8-10.8) K/ul RBC 3.90 L (4.70-6.10) M/uL Hgb 12.2 L (14.0-18.0) g/dl Hct 35.3 L (42.0-52.0) % MCV 90.5 (80.0-100.0) fL MCH 31.3 (25.0-34.0) pg MCHC 34.6 (32.0-36.0) g/dL RDW Std Deviation 44.6 (36.4-46.3) fL RDW Coeff of Taylor 13.5 (11.5-14.5) % Plt Count 293 (130-400) K/uL MPV 8.7 L (9.4-12.4) fL Immature Gran % (Auto) 0.6 % Neut % (Auto) 86.9 % Lymph % (Auto) 7.6 % Carbon % (Auto) 4.8 % Eos % (Auto) 0.0 % Baso % (Auto) 0.1 % Neut # (Auto) 15.01 H (1.40-6.50) K/uL Lymph # (Auto) 1.31 (1.2-3.4) K/uL Carbon # (Auto) 0.83 H (0.11-0.59) K/uL Eos # (Auto) 0.00 (0-0.50) K/uL Baso # (Auto) 0.02 (0-0.2) K/uL Immature Gran # (Auto) 0.10 (0.01-0.20) K/uL ABG pH (7.35-7.45) ABG pCO2 (35-46) mmHg ABG pO2 (80-95) mmHg ABG HCO3 (19-24) mmol/L ABG O2 Saturation (90-95) % ABG Base Excess (-9-1.8) mEq/L Camacho Test (Pos) Oxygen Given Sodium 128 L (136-145) mmol/L Potassium 3.4 L (3.5-5.1) mmol/L Chloride 108 H (98-107) mmol/L Carbon Dioxide 14 L (21-32) mmol/L Anion Gap 6 (3-11) BUN 8 (6-23) mg/dl Creatinine 0.58 L (0.6-1.4) mg/dl Est Cr Clr Drug Dosing 104.3 ml/min Est GFR ( Amer) 130.3 ml/min Est GFR (Non-Af Amer) 112.4 ml/min BUN/Creatinine Ratio 13.8 (10-20) Glucose 122 H (70-99(Fasting)) mg/dl Osmolality (280-300) mOsm/kg Lactate (0.4-2.0) mmol/L Calcium 6.4 L (8.6-10.3) mg/dl Phosphorus (2.5-4.9) mg/dl Magnesium Cancelled 1.7 (1.7-2.4) mg/dl Total Bilirubin (0.2-1.0) mg/dl AST (13-39) U/L ALT (7-52) U/L Alkaline Phosphatase (34-104) U/L Troponin I High Sens 8.2 (0-20) pg/ml Total Protein (6.0-8.3) gm/dl Albumin (3.4-5.0) gm/dl Globulin (2.5-4.0) gm/dl Albumin/Globulin Ratio (0.9-2) Lipase (11-82) U/L Urine Color Urine Appearance (Clear) Urine pH (4.5-7.5) Ur Specific [place] (1.000-1.030) Urine Protein (Negative) Urine Glucose (UA) (Negative) Urine Ketones (Negative) Urine Blood (Negative) Urine Nitrite (Negative) Urine Bilirubin (Negative) Urine Urobilinogen (Negative) Ur Leukocyte Esterase (Negative) Urine WBC (Auto) (0-5) /hpf Urine RBC (Auto) (0-4) /hpf U Hyaline Cast (Auto) (0-5) /lpf U Epithel Cells (Auto) (0-5) /lpf Urine Bacteria (Auto) (Negative) Urine Osmolality (500-800) mOsm/kg Ur Random Sodium mmol/L Stl C. cayetanensis PCR (NotDetected) Stool Rotavirus A PCR (NotDetected) Stl Adenov F 40/41 PCR (NotDetected) Stool Astrovirus (PCR) (NotDetected) Stool Campylobacter PCR (NotDetected) Stl C. diff Tox B Gene (Neg) Stool Cryptosporidium PCR (NotDetected) Stl E.coli Shiga Tox PCR (NotDetected) Stl Enterotoxigenic E PCR (NotDetected) Stool EPEC (PCR) (NotDetected) Stool EAEC (PCR) (NotDetected) Stl E. histolytica PCR (NotDetected) Stool Giardia Lamblia PCR (NotDetected) Stool Salmonella PCR (NotDetected) Stool Sapovirus (PCR) (NotDetected) Stl P. shigelloides PCR (NotDetected) Stl Shigella/EIEC PCR (NotDetected) St Y.enterocolitica PCR (NotDetected) Stool Vibrio (PCR) (NotDetected) Stl Vibrio cholerae PCR (NotDetected) Stl Norovirus GI/GII PCR (NotDetected) SARS-CoV-2, RNA, NAAT (NEGATIVE) 12/02/22 12/02/22 Range/Units 16:18 16:18 WBC (4.8-10.8) K/ul RBC (4.70-6.10) M/uL Hgb (14.0-18.0) g/dl Hct (42.0-52.0) % MCV (80.0-100.0) fL MCH (25.0-34.0) pg MCHC (32.0-36.0) g/dL RDW Std Deviation (36.4-46.3) fL RDW Coeff of Taylor (11.5-14.5) % Plt Count (130-400) K/uL MPV (9.4-12.4) fL Immature Gran % (Auto) % Neut % (Auto) % Lymph % (Auto) % Carbon % (Auto) % Eos % (Auto) % Baso % (Auto) % Neut # (Auto) (1.40-6.50) K/uL Lymph # (Auto) (1.2-3.4) K/uL Carbon # (Auto) (0.11-0.59) K/uL Eos # (Auto) (0-0.50) K/uL Baso # (Auto) (0-0.2) K/uL Immature Gran # (Auto) (0.01-0.20) K/uL ABG pH 7.34 L (7.35-7.45) ABG pCO2 25 L (35-46) mmHg ABG pO2 103 H (80-95) mmHg ABG HCO3 14 L (19-24) mmol/L ABG O2 Saturation 97.6 H (90-95) % ABG Base Excess -10.5 L (-9-1.8) mEq/L Camacho Test Pos (Pos) Oxygen Given 4 L Sodium (136-145) mmol/L Potassium (3.5-5.1) mmol/L Chloride (98-107) mmol/L Carbon Dioxide (21-32) mmol/L Anion Gap (3-11) BUN (6-23) mg/dl Creatinine (0.6-1.4) mg/dl Est Cr Clr Drug Dosing ml/min Est GFR ( Amer) ml/min Est GFR (Non-Af Amer) ml/min BUN/Creatinine Ratio (10-20) Glucose (70-99(Fasting)) mg/dl Osmolality (280-300) mOsm/kg Lactate 2.3 H* (0.4-2.0) mmol/L Calcium (8.6-10.3) mg/dl Phosphorus (2.5-4.9) mg/dl Magnesium (1.7-2.4) mg/dl Total Bilirubin (0.2-1.0) mg/dl AST (13-39) U/L ALT (7-52) U/L Alkaline Phosphatase (34-104) U/L Troponin I High Sens (0-20) pg/ml Total Protein (6.0-8.3) gm/dl Albumin (3.4-5.0) gm/dl Globulin (2.5-4.0) gm/dl Albumin/Globulin Ratio (0.9-2) Lipase (11-82) U/L Urine Color Urine Appearance (Clear) Urine pH (4.5-7.5) Ur Specific [place] (1.000-1.030) Urine Protein (Negative) Urine Glucose (UA) (Negative) Urine Ketones (Negative) Urine Blood (Negative) Urine Nitrite (Negative) Urine Bilirubin (Negative) Urine Urobilinogen (Negative) Ur Leukocyte Esterase (Negative) Urine WBC (Auto) (0-5) /hpf Urine RBC (Auto) (0-4) /hpf U Hyaline Cast (Auto) (0-5) /lpf U Epithel Cells (Auto) (0-5) /lpf Urine Bacteria (Auto) (Negative) Urine Osmolality (500-800) mOsm/kg Ur Random Sodium mmol/L Stl C. cayetanensis PCR (NotDetected) Stool Rotavirus A PCR (NotDetected) Stl Adenov F 40/41 PCR (NotDetected) Stool Astrovirus (PCR) (NotDetected) Stool Campylobacter PCR (NotDetected) Stl C. diff Tox B Gene (Neg) Stool Cryptosporidium PCR (NotDetected) Stl E.coli Shiga Tox PCR (NotDetected) Stl Enterotoxigenic E PCR (NotDetected) Stool EPEC (PCR) (NotDetected) Stool EAEC (PCR) (NotDetected) Stl E. histolytica PCR (NotDetected) Stool Giardia Lamblia PCR (NotDetected) Stool Salmonella PCR (NotDetected) Stool Sapovirus (PCR) (NotDetected) Stl P. shigelloides PCR (NotDetected) Stl Shigella/EIEC PCR (NotDetected) St Y.enterocolitica PCR (NotDetected) Stool Vibrio (PCR) (NotDetected) Stl Vibrio cholerae PCR (NotDetected) Stl Norovirus GI/GII PCR (NotDetected) SARS-CoV-2, RNA, NAAT (NEGATIVE)
[2022-12-02] MEDS: MELATONIN 3 MG TAB PO SCH (20:55)
--- NOTE | 2022-12-02 21:23 | Hospitalist Progress Note ---
Date of Service December 02, 2022 Assessment & Plan (1) Mass of anus: Plan: Patient is being followed by Colorectal surgeon at [facility] He was scheduled for a follow up visit with his surgeon on day of admission but was unable to attend his appointment due to being too weak and was taken to the ER here instead CT A/P results on admission shows large rectal mass with local extension. Case was reportedly discussed by ER provider with CRS at [facility] and his transfer was declined. I spoke again with colorectal surgery at [facility] today, Dr Jalil Blas and patient has been accepted for transfer. Colonoscopy today with biopsy Concern for partial obstruction. Patient after colonoscopy with episodes of vomiting. Keep NPO except medications (2) Hyponatremia: Plan: Likely due to poor oral intake Na improved with IV fluid (3) Dehydration: Plan: received IVF, now discontinued due to edema (4) Malnutrition: Plan: Patient food avoidant due to fecal incontinence Once he is able to have oral intake, would benefit from RD assessment (5) Human immunodeficiency virus (HIV) disease: Plan: Pt currently on Biktarvy which is not available on formulary here at [facility]. His friend brought his medications today, will review and resume (6) Peripheral arterial disease: Plan: Arterial Doppler noted Multilevel superficial femoral artery thrombosis Was on Eliquis which is held currently Will need follow up with vascular surgery (7) Idiopathic peripheral neuropathy: (8) History of pulmonary embolism: Plan: Holding Eliquis with concern for need for surgery (9) Epigastric pain: Plan: Now with vomiting. will put on protonix drip Plan Hypokalemia Hypophosphatemia -repleted. Repeat BMP tomorrow Acute volume overload -from hypoalbuminemia, third spacing. Received 1 dose IV lasix 20g IV. Reassess fluid status and additional IV lasix as needed DVT ppx If no evidence of bleed from biopsy today (h/h remains stable), start SQ lovenox tomorrow. Disposition-- pending transfer to [facility] Admission and Anticipated Discharge Date Admission Date: November 29, 2022 Subjective Patient's case was discussed with colorectal surgeon at [facility], he was accepted for transfer by Dr Jalil Blas. Awaiting bed placement Went for colonoscopy today with biopsy Patient was seen after endoscopy today and initially he was upset about having to remain in the hospital. Stating that he needed to go home to attend to his household but he agrees to transfer. Later in the afternoon, I was notified that he was vomitting "coffee ground emesis". After vomiting, patient complaining of SOB--denies chest pain or abdominal pain, just feels dyspneic. CXR portable shows volume overload. He was then given lasix 20mg IV lasix and later SOB improved Review of Systems Review of Systems: as above Physical Exam Constitutional: thin, frail, cachetic Respiratory: Rapid, shallow breathing, no wheezing/rhonchi Cardiovascular: Mildly tachcyardic but regular Gastrointestinal (Abdomen): some distension, no rebound or guarding Musculoskeletal: 1+ edema bilaterally Neurologic: awake, alert, spontaneously moving extremities Psychiatric: anxious Genitourinary: +scrotal edema Results & Data Results & Data Vital Signs (Past 12 Hours) Vital Signs Temp Pulse Pulse Resp BP Pulse Ox O2 Del Method 12/02/22 20:07 36.3 C L 110 H 20 100/68 100 Room Air 12/02/22 18:23 36.3 C L 12/02/22 16:00 123 H 12/02/22 15:40 119 H 24 94 Room Air 12/02/22 15:10 36.2 C L 120 H 24 137/85 96 Room Air 12/02/22 12:30 36.6 C 96 H 14 112/78 95 Room Air 12/02/22 11:59 98 H 16 123/83 99 Room Air 12/02/22 11:44 97 H 16 130/90 95 Room Air 12/02/22 11:30 103 H 16 112/84 96 Room Air 12/02/22 10:46 36.3 C L 101 H 16 137/96 97 Room Air
[2022-12-02] MEDS ORDERED: SODIUM CHLORIDE 0.9% 500 ML IV SCH (21:30)
[2022-12-03] MEDS: PANTOprazole 40 MG in DEXTROSE 5% 100 ML IV SCH ×2 (01:33→06:38)
[2022-12-03] MEDS: PIPERACILLIN/TAZOBACTAM 4.5 GM in DEXTROSE 5% 100 ML IV SCH ×2 (01:34→10:16)
[2022-12-03] MEDS ORDERED: ALBUMIN 5% 250 ML IV ONE (05:03)
[2022-12-03] MEDS ORDERED: LEVALBUTEROL 1.25 MG/3 ML NEB ONE (05:16)
[2022-12-03] MEDS ORDERED: FUROSEMIDE INJ 20 MG/2 ML VIAL IV STA (05:21)
[2022-12-03] MEDS ORDERED: FUROSEMIDE 40 MG/4 ML VIAL IV STA (05:23)
[2022-12-03 05:34] LABS: Base Excess ABG -10.5 mEq/L (-9-1.8); HCO3 ABG 14 mmol/L (19-24); Oxygen Saturation ABG 93.3 % (90-95); PCO2 ABG 26 mmHg (35-46); PO2 ABG 74 mmHg (80-95); pH ABG 7.33 (7.35-7.45)
[2022-12-03 05:35] LABS: Allen Test Pos (Pos)
[2022-12-03] MEDS ORDERED: SODIUM BICARB 8.4% INJ 50 MEQ/50 ML SYR IV STA (05:50)
[2022-12-03 06:36] LABS: Anion Gap 9 (3-11); BUN Creatinine Ratio 11.1 (10-20); Blood Urea Nitrogen 9 mg/dl (6-23); Calcium 6.7 mg/dl (8.6-10.3); Carbon Dioxide 16 mmol/L (21-32); Chloride 105 mmol/L (98-107); Creatinine Clr Calc Pharmacy 74.5 ml/min; Est GFR (African American) 113.5 ml/min; Glucose 114 mg/dl (70-99(Fasting)); Potassium 3.6 mmol/L (3.5-5.1); Sodium 130 mmol/L (136-145)
[2022-12-03 06:38] LABS: Alanine Aminotransferase 24 U/L (7-52); Albumin Level < 1.5 gm/dl (3.4-5.0); Alkaline Phosphatase 100 U/L (34-104); Aspartate Aminotransferase 35 U/L (13-39); Bilirubin,Total 0.8 mg/dl (0.2-1.0); Magnesium 1.7 mg/dl (1.7-2.4); Total Protein 4.1 gm/dl (6.0-8.3)
[2022-12-03 06:42] LABS: Troponin I High Sensitivity 16.9 pg/ml (0-20)
--- NOTE | 2022-12-03 07:40 | XRay Report ---
SINGLE VIEW CHEST CLINICAL HISTORY: Dyspnea FINDINGS: An AP, portable, upright chest radiograph is compared to study dated 12/02/2022. Correlation is made with chest CT dated 10/13/2020. The examination is degraded by portable technique and patient rotation. The cardiomediastinal silhouette is unremarkable. Bilateral airspace opacities persist. Th ere are layering pleural effusions with dependent consolidation. No pneumothorax is seen. The skeleta l structures are osteopenic. The bony thorax is grossly intact. IMPRESSION: 1. Bilateral airspace opacities persist. This could represent pulmonary edema and/or multifocal pneum onia. Clinical correlation will be required and radiographic follow-up to resolution is recommended. 2. Small layering pleural effusions. ACT 112: Negative or not required by law. Electronically signed by: Erick Euceda M.D. 12/03/2022 7:39 AM
[2022-12-03] MEDS ORDERED: MAGNESIUM SULFATE / D5W 1 GM/100 ML BAG IV ONE (08:07)
[2022-12-03] MEDS: POTASSIUM CHLORIDE / WTR 10 MEQ/100 ML PLCT IV SCH ×3 (08:30→11:13)
[2022-12-03] MEDS ORDERED: ALBUMIN 25% 25 GM/100 ML VIAL IV SCH (08:30)
[2022-12-03] MEDS ORDERED: SODIUM CHLORIDE 0.9% 1000ML 1,000 ML IV SCH (09:00)
[2022-12-03] MEDS ORDERED: SODIUM CHLORIDE 0.9% 1000ML 500 ML IV SCH (09:00)
--- NOTE | 2022-12-03 09:14 | Communication Note ---
Date of Service: December 03, 2022 Patient accepted yesterday afternoon by Dr Jalil Blas of Colorectal surgery at [facility] for transfer. In the evening, he vomited what appeared to be dark/coffee colored emesis and shortly later felt very SOB. CXR showed volume overload and he received lasix 20mg IV once with improvement in symptoms. Overnight, again he became SOB and repeat CXR showed volume overload so he again received lasix 30mg IV once and he was placed on BIPAP. This morning, BP down to 84/60. Lactate 3. I reached out to [facility] and spoke with kerfer machine operator there Dr Richard Blas. He has been accepted for transfer to [facility] ICU pending bed availability. In the meantime, will transfer to our ICU for continued stabilization. Received message from Cardiology that patient's TTE this morning shows a moderate anterior pericardial effusion. Vitals: BP 84/60, HR 117, RR 22, T 36.4, 96% on BIPAP Gen- appears unwell, thin cachetic, weak CV- tachycardic but regular Pulm- On BIPAP, no wheezing Abd- hypoactive, distended, tender diffusely Extr- 3+ edema, +scrotal edema, extremities are dusky Assessment: 57 year old HIV positive man on HAART therapy here with large rectal mass concerning for partial obstruction now with acute hypoxic respiratory failure, lactic acidosis, and hypotension. Awaiting transfer to [facility] ICU. Plan: 1) Acute Hypoxic Respiratory Failure -Secondary to volume overload. Possible component of aspiration since event occurred after patient vomitted -Continue with BIPAP Support. 2) Hypotension -TTE shows moderate pericardial effusion. Patient received lasix 20mg IV then 30mg IV. -With rising lactate, poor perfusion. Start Albumin 25gm IV Q 8 hours and discussed with ICU, 1L lactated ringer ordered -Will place PICC line now. May need pressor support if BP not improved -continue zosyn 3) Large Rectal Mass -Concern for partial obstruction -Abdominal X ray yesterday shows ileus. No free air -Patient with episode of vomitting yesterday but none since -Continue to keep NPO -If vomiting recurs, will place NG tube. 4) Metabolic Acidosis -In setting of hypotension. Concern for bowel ischemia. -Received 1 amp bicarb yesterday -ABG this morning with compensation. 5) Hypokalemia. Hypomagnesemia -Repletions ordered 6) HIV -Reports compliance. Has not received medications here in past 3 days due to his medicine is not on formulary. Spoke with Dr Gordon, kerfer machine operator here. Requesting CTA Abdomen/pelvis. Total critical care time: 60 min. Time spent coordinating care, stabilizing patient.
[2022-12-03] MEDS ORDERED: LACTATED RINGER'S 1,000 ML IV ONE (09:21)
[2022-12-03] MEDS ORDERED: IOVERSOL 350 MG 125mL Prefilled Syringe IV ONE (09:27)
[2022-12-03 09:39] LABS: Hematocrit (blood only) 41.4 % (42.0-52.0); Hemoglobin 14.1 g/dl (14.0-18.0); Mean Corpuscular Hemoglobin 32.8 pg (25.0-34.0); Mean Corpuscular Hgb Conc 34.1 g/dL (32.0-36.0); Mean Corpuscular Volume 96.3 fL (80.0-100.0); Platelet Count 317 K/uL (130-400); RDW Coefficient of Variation 13.7 % (11.5-14.5); RDW Standard Deviation 47.4 fL (36.4-46.3); White Blood Count 30.67 K/ul (4.8-10.8)
[2022-12-03] MEDS: GABAPENTIN 600 MG TAB PO SCH (09:47)
[2022-12-03 09:49] LABS: Basophils # (auto) 0.06 K/uL (0-0.2); Basophils % (auto) 0.2 %; Echinocytes 3+; Eosinophils # (auto) 0.01 K/uL (0-0.50); Immature Granulocytes # (auto) 0.31 K/uL (0.01-0.20); Lymphocytes # (auto) 1.89 K/uL (1.2-3.4); Lymphocytes % (auto) 6.2 %; Monocytes # (auto) 1.68 K/uL (0.11-0.59); Monocytes % (auto) 5.5 %; Neutrophils # (auto) 26.72 K/uL (1.40-6.50); Neutrophils % (auto) 87.1 %
[2022-12-03] MEDS: HYDROmorphone INJ 1 MG/ML SYRINGE IV PRN ×2 (09:59→10:00)
--- NOTE | 2022-12-03 10:10 | CT Scan Report ---
CT ANGIOGRAM OF THE ABDOMEN AND PELVIS CLINICAL HISTORY: Generalized abdominal pain. COMPARISON STUDY: Abdominal CT dated 11/29/2022. TECHNIQUE: Following the IV administration of 118 cc of Optiray 320, CT angiogram of the abdomen and pelvis was performed from the lung bases the proximal femora. Images are reviewed in the axial, sagit nilton, and coronal planes. 3-D MIPS images are created and assessed. IV contrast was administered witho ut complication. A dose lowering technique was utilized adhering to the principles of ALARA. CT DOSE: 540.16 mGy.cm FINDINGS: Lower chest: The heart is normal in size and without pericardial effusion. There are moderate pleural effusions with dependent consolidation. Airspace consolidation is seen throughout the aerated lower lungs. These findings are new from 11/29/2022. There is a small hiatal hernia. Gynecomastia is observe d. Liver: The contrast-enhanced liver is normal in size and heterogeneous in attenuation. Nodularity of the surface contour suggests early morphologic changes of cirrhosis. There is no intrahepatic biliary ductal dilatation. Gallbladder: The gallbladder is markedly distended and contains layering shadowing gallstones. The ga llbladder is not well evaluated due to surrounding ascites there Spleen: Normal in size and attenuation noting heterogeneous arterial phase enhancement. The splenic i nfarct suggested on 11/29/2022 is not well visualized. Pancreas: Moderately atrophic and grossly unremarkable. Adrenal glands: The adrenal glands appear hyperemic. Kidneys: The contrast enhanced kidneys demonstrate cortical atrophy and/or without hydronephrosis. Th e kidneys enhance symmetrically. There are at least 2 nonobstructing left renal calculi which measure up to 4 mm. Abdominal aorta and iliac arteries: There is moderate to advanced atherosclerotic calcification of th e abdominal aorta which is normal in caliber. No dissection is seen. A stent within the left common i liac arteries patent. There is moderate to severe stenosis within the distal aspect of the stent seen on image #220. The right common iliac artery is widely patent. The external iliac arteries are paten t bilaterally noting advanced atherosclerotic plaque and irregularity. There is moderate focal stenos is of the left external iliac artery seen on image #268. The internal iliac arteries are thrombosed p roximally. There is complete thrombosis of the left superficial femoral artery which originates on im age #338. There is focal high-grade stenosis with near complete occlusion of the proximal right super ficial femoral artery seen on image #340. Major branches of the abdominal aorta: The celiac trunk, superior mesenteric, and inferior mesenteric arteries are patent. There is moderate stenosis of the proximal celiac artery, with ectasia of the c eliac artery more distally which measures up to 10 mm diameter. There is a replaced right hepatic art franco. The splenic artery is patent. There are 2 right renal arteries and a single left renal artery. T he renal vessels are patent bilaterally. Bowel: Asymmetric right-sided rectal wall thickening is again noted. Mildly enlarged perirectal an pr esacral lymph nodes measure up to 8 mm. No bowel obstruction is seen. These are best seen on images # 250, #264, #267, #284, and #294. There is mild wall thickening of the distal colon. Small bowel loops are normal in appearance. The appendix is no identified and reported surgically absent. Peritoneum: There is a moderate volume of abdominopelvic ascites. No intraperitoneal free air is iden tified. Lymphadenopathy: There is no upper abdominal, retroperitoneal, iliac chain, or inguinal lymphadenopat hy. Pelvic viscera: The bladder is decompressed around a Mariano catheter and could not be assessed. The pr ostate and seminal vesicles are normal as imaged. Skeletal structures: No destructive bony lesions are seen. There are chronic/healed right posterior r ib fractures. Soft tissues: There is body wall edema. IMPRESSION: 1. There are moderate bilateral pleural effusions with dependent consolidation. This is new from 11/29. 2. There is patchy airspace consolidation throughout the aerated lung bases. This is also new from pr evious and could represent pulmonary edema and/or multifocal pneumonia. Clinical correlation will be required and radiographic follow-up to resolution is recommended. 3. Moderate volume of abdominopelvic ascites. This is unchanged to mildly increased from previous. 4. Anasarca of the body wall. 5. A large rectal mass is again noted with mildly enlarged perirectal and presacral lymph nodes. 6. Atherosclerosis of the abdominal vessels. The aorta is patent. 7. A left common iliac artery stent is patent. There is moderate to severe stenosis within the stent seen distally. 8. There is complete thrombosis of the proximal bilateral internal iliac arteries. 9. There is complete thrombosis of the proximal left superficial femoral artery. 10. There is a high-grade stenosis with near complete occlusion of the proximal right superficial fem oral artery. 11. There is moderate focal stenosis of the left external iliac artery. 12. There is moderate stenosis of the proximal celiac artery. 13. Cholelithiasis within a markedly distended gallbladder. This is similar to previous. Correlate wi clinical and laboratory findings for evidence of cholecystitis. 14. Heterogeneous liver with morphologic changes of cirrhosis. 15. Left-sided nephrolithiasis. 16. There is mild wall thickening of the rectosigmoid colon. Correlate clinically. 17. Additional findings as above. ACT 112: Negative or not required by law. Electronically signed by: Erick Euceda M.D. 12/03/2022 10:08 AM
--- NOTE | 2022-12-03 10:23 | Electrocardiogram Report ---
Test Reason : Blood Pressure : / mmHG Vent. Rate : 125 BPM Atrial Rate : 125 BPM P-R Int : 152 ms QRS Dur : 076 ms QT Int : 300 ms P-R-T Axes : 035 016 130 degrees QTc Int : 433 ms Poor data quality, interpretation may be adversely affected Sinus tachycardia Low voltage QRS Old Anteroseptal infarct (cited on or before 17-JUL-2018) Diffuse Minor Nonspecific T wave abnormality Abnormal ECG When compared with ECG of 13-OCT-2020 21:03, HR has increased by 57 bpm Nonspecific T wave abnormality now present Nonspecific ST abnormality no longer present Confirmed by Evans Herrera ([id number]) on 12/03/2022 10:22:39 AM Referred By: REFERRED SELF Confirmed By:Evans Herrera
[2022-12-03] MEDS ORDERED: LORazepam 2 MG/1 ML VIAL IV STA (11:18)
[2022-12-03] MEDS ORDERED: HYDROmorphone INJ 1 MG/ML SYRINGE IV STA (11:18)
[2022-12-03] MEDS ORDERED: LORazepam 2 MG/1 ML VIAL ONE (11:19)
--- NOTE | 2022-12-03 11:23 | Critical Care Progress Note ---
Date of Service December 03, 2022 Assessment & Plan (1) Carcinoma of rectum: (2) Mass of anus: (3) Sepsis with acute hypoxic respiratory failure: Plan The patient is a 57-year-old gentleman who unfortunately is suffering from a persistent rectal mass. The concern is with obstruction and some colonic dilatation. He was attempted to be managed here with an attempted conservative therapy with a nasogastric tube. However over the last 24 hours he has deteriorated. His colorectal surgeon at [facility] did accept him but we are waiting for bed placement which was being delayed. He is becoming septic with hypotension and respiratory distress. His white count jumped up to 30.7 from 17 yesterday. He remains acidotic with a bicarb of 14 yesterday now 16. His renal function remains stable. But he is acidotic with pH 7.33 and a PCO2 of 26. With that clinical picture I am concerned about ischemic colitis and development of severe sepsis. We obtained a CT angiogram and no mention of pneumatosis or free air. There is some colonic dilatation. He has significant bilateral pleural effusions and intra-abdominal ascites. There is a large rectal mass again noted. But there are also bilateral lower lobe infiltrates and that may also be contributing to his sepsis impending shock as well as hypoxemia and respiratory failure. 1. Neuropsych: The patient for now remains awake alert and interactive. He would prefer to stay here but his colorectal surgeon is at [facility]. 2. Cardiovascular: Pending shock and he will likely need to be on Levophed shortly. 3. Pulmonary acute hypoxic respiratory failure. He is on Zosyn but I would likely add vancomycin at this point with his severe sepsis and respiratory failure. 4. Gastrointestinal: He is being transferred to [facility] to be under the care of his colorectal surgeon. At some point I am wondering whether or not he would need a diverting colostomy. He is quite nutritionally compromised and he has significant bilateral pleural effusions and ascites. I do not know whether or not this rectal mass with his obstruction is limiting his p.o. intake. But potentially a diverting colostomy may help overall with his nutritional intake. For now again there is no evidence of intestinal ischemia. 5. Renal: Acidosis from either lung or GI tract. 6. ID: He is on Zosyn and I would the dose of vancomycin but he is being transported at this time. I would also want to get some sputum cultures. 7. Heme: He remains on Venodyne boots as do not want to induce any bleeding from his rectal mass. There is also some coffee-ground emesis. 8: Endocrine: No immediate active issues. The patient is now being med flighted to the tertiary care facility and we wish him well with his journey with this rectal mass and his current metabolic acidosis and acute hypoxic respiratory failure. Admission and Anticipated Discharge Date Admission Date: November 29, 2022 Subjective The patient is having some respiratory distress. There is some abdominal distention but not very tender. He is denying any chest pain arm or jaw pain. No cough or phlegm production. Physical Exam Physical Exam: The patient is awake alert and interactive. He is communicative. But he was having some respiratory distress and is now on the BiPAP. Lungs are diminished but without any rhonchi bilaterally heart is regular rate and rhythm abdomen is distended but not terribly tender extremities are with 2-3+ edema bilaterally. He is moving all of his extremities. Sclera nonicteric. Results & Data Results & Data Vital Signs (Past 12 Hours) Vital Signs Temp Pulse Pulse Resp BP Pulse Ox O2 Del Method 12/03/22 10:33 22 95 12/03/22 10:20 BiPAP 12/03/22 09:46 118 H 28 H 99 12/03/22 08:14 36.4 C L 117 H 22 84/60 L 96 BiPAP 12/03/22 07:00 137 H 12/03/22 07:33 117 H 26 H 94 12/03/22 05:40 130 H 28 H 95 12/03/22 03:00 36.5 C 110 H 20 99/72 L 96 Room Air 12/02/22 23:08 36.3 C L 110 H 14 107/67 93 Room Air O2 Flow Rate FiO2 12/03/22 10:33 65 12/03/22 10:20 65 12/03/22 09:46 75 12/03/22 08:14 12/03/22 07:00 12/03/22 07:33 65 12/03/22 05:40 65 12/03/22 03:00 12/02/22 23:08 Laboratory Results Laboratory Results WBC 30.67 K/ul (4.8-10.8) H* D 12/03/22 05:38 RBC 4.30 M/uL (4.70-6.10) L 12/03/22 05:38 Hgb 14.1 g/dl (14.0-18.0) 12/03/22 05:38 Hct 41.4 % (42.0-52.0) L 12/03/22 05:38 MCV 96.3 fL (80.0-100.0) D 12/03/22 05:38 MCH 32.8 pg (25.0-34.0) 12/03/22 05:38 MCHC 34.1 g/dL (32.0-36.0) 12/03/22 05:38 RDW Std Deviation 47.4 fL (36.4-46.3) H 12/03/22 05:38 RDW Coeff of Taylor 13.7 % (11.5-14.5) 12/03/22 05:38 Plt Count 317 K/uL (130-400) 12/03/22 05:38 MPV 9.0 fL (9.4-12.4) L 12/03/22 05:38 Immature Gran % (Auto) 1.0 % 12/03/22 05:38 Neut % (Auto) 87.1 % 12/03/22 05:38 Lymph % (Auto) 6.2 % 12/03/22 05:38 Breckinridge % (Auto) 5.5 % 12/03/22 05:38 Eos % (Auto) 0.0 % 12/03/22 05:38 Baso % (Auto) 0.2 % 12/03/22 05:38 Neut # (Auto) 26.72 K/uL (1.40-6.50) H 12/03/22 05:38 Lymph # (Auto) 1.89 K/uL (1.2-3.4) 12/03/22 05:38 Breckinridge # (Auto) 1.68 K/uL (0.11-0.59) H 12/03/22 05:38 Eos # (Auto) 0.01 K/uL (0-0.50) 12/03/22 05:38 Baso # (Auto) 0.06 K/uL (0-0.2) 12/03/22 05:38 Immature Gran # (Auto) 0.31 K/uL (0.01-0.20) H 12/03/22 05:38 Echinocytes 3+ 07/28/23 05:38 ABG pH 7.33 (7.35-7.45) L 12/03/22 05:27 ABG pCO2 26 mmHg (35-46) L 12/03/22 05:27 ABG pO2 74 mmHg (80-95) L 12/03/22 05:27 ABG HCO3 14 mmol/L (19-24) L 12/03/22 05:27 ABG O2 Saturation 93.3 % (90-95) 12/03/22 05:27 ABG Base Excess -10.5 mEq/L (-9-1.8) L 12/03/22 05:27 Camacho Test Pos (Pos) 12/03/22 05:27 Oxygen Given RA 12/03/22 05:27 Sodium 130 mmol/L (136-145) L 12/03/22 05:38 Potassium 3.6 mmol/L (3.5-5.1) 12/03/22 05:38 Chloride 105 mmol/L (98-107) 12/03/22 05:38 Carbon Dioxide 16 mmol/L (21-32) L 12/03/22 05:38 Anion Gap 9 (3-11) 12/03/22 05:38 BUN 9 mg/dl (6-23) 12/03/22 05:38 Creatinine 0.81 mg/dl (0.6-1.4) 12/03/22 05:38 Est Cr Clr Drug Dosing 74.5 ml/min 12/03/22 05:38 Est GFR ( Amer) 113.5 ml/min 12/03/22 05:38 Est GFR (Non-Af Amer) 98.0 ml/min 12/03/22 05:38 BUN/Creatinine Ratio 11.1 (10-20) 12/03/22 05:38 Glucose 114 mg/dl (70-99(Fasting)) H 12/03/22 05:38 Osmolality 270 mOsm/kg (280-300) L 11/29/22 17:05 Lactate 3.0 mmol/L (0.4-2.0) H* 12/02/22 18:59 Calcium 6.7 mg/dl (8.6-10.3) L 12/03/22 05:38 Phosphorus 1.7 mg/dl (2.5-4.9) L D 12/01/22 05:38 Magnesium 1.7 mg/dl (1.7-2.4) 12/03/22 05:38 Total Bilirubin 0.8 mg/dl (0.2-1.0) 12/03/22 05:38 AST 35 U/L (13-39) 12/03/22 05:38 ALT 24 U/L (7-52) 12/03/22 05:38 Alkaline Phosphatase 100 U/L (34-104) 12/03/22 05:38 Troponin I High Sens 16.9 pg/ml (0-20) D 12/03/22 05:38 Total Protein 4.1 gm/dl (6.0-8.3) L 12/03/22 05:38 Albumin < 1.5 gm/dl (3.4-5.0) L 12/03/22 05:38 Globulin TNP 12/03/22 05:38 Albumin/Globulin Ratio TNP 12/03/22 05:38 Lipase < 3 U/L (11-82) L 11/29/22 10:54 Urine Color Dark Yellow 11/29/22 17:15 Urine Appearance Clear (Clear) 11/29/22 17:15 Urine pH 5.5 (4.5-7.5) 11/29/22 17:15 Ur Specific Walsh > 1.045 (1.000-1.030) H 11/29/22 17:15 Urine Protein Trace (Negative) H 11/29/22 17:15 Urine Glucose (UA) Negative (Negative) 11/29/22 17:15 Urine Ketones Trace (Negative) H 11/29/22 17:15 Urine Blood Negative (Negative) 11/29/22 17:15 Urine Nitrite Positive (Negative) A 11/29/22 17:15 Urine Bilirubin Negative (Negative) 11/29/22 17:15 Urine Urobilinogen Negative (Negative) 11/29/22 17:15 Ur Leukocyte Esterase 1+ (Negative) H 11/29/22 17:15 Urine WBC (Auto) 10-30 /hpf (0-5) H 11/29/22 17:15 Urine RBC (Auto) 0-4 /hpf (0-4) 11/29/22 17:15 U Hyaline Cast (Auto) 1-5 /lpf (0-5) 11/29/22 17:15 U Epithel Cells (Auto) 10-20 /lpf (0-5) H 11/29/22 17:15 Urine Bacteria (Auto) 1+ (Negative) H 11/29/22 17:15 Urine Osmolality 545 mOsm/kg (500-800) 11/29/22 17:15 Ur Random Sodium 13 mmol/L 11/29/22 17:15 Stl C. cayetanensis PCR Not Detected (NotDetected) 11/29/22 12:12 Stool Rotavirus A PCR Not Detected (NotDetected) 11/29/22 12:12 Stl Adenov F 40/41 PCR Not Detected (NotDetected) 11/29/22 12:12 Stool Astrovirus (PCR) Not Detected (NotDetected) 11/29/22 12:12 Stool Campylobacter PCR Not Detected (NotDetected) 11/29/22 12:12 Stl C. diff Tox B Gene Negative Cdiff Gene (Neg) 11/29/22 12:12 Stool Cryptosporidium PCR Not Detected (NotDetected) 11/29/22 12:12 Stl E.coli Shiga Tox PCR Not Detected (NotDetected) 11/29/22 12:12 Stl Enterotoxigenic E PCR Not Detected (NotDetected) 11/29/22 12:12 Stool EPEC (PCR) Not Detected (NotDetected) 11/29/22 12:12 Stool EAEC (PCR) Not Detected (NotDetected) 11/29/22 12:12 Stl E. histolytica PCR Not Detected (NotDetected) 11/29/22 12:12 Stool Giardia Lamblia PCR Not Detected (NotDetected) 11/29/22 12:12 Stool Salmonella PCR Not Detected (NotDetected) 11/29/22 12:12 Stool Sapovirus (PCR) Not Detected (NotDetected) 11/29/22 12:12 Stl P. shigelloides PCR Not Detected (NotDetected) 11/29/22 12:12 Stl Shigella/EIEC PCR Not Detected (NotDetected) 11/29/22 12:12 St Y.enterocolitica PCR Not Detected (NotDetected) 11/29/22 12:12 Stool Vibrio (PCR) Not Detected (NotDetected) 11/29/22 12:12 Stl Vibrio cholerae PCR Not Detected (NotDetected) 11/29/22 12:12 Stl Norovirus GI/GII PCR Not Detected (NotDetected) 11/29/22 12:12 SARS-CoV-2 (PCR) NEGATIVE (Negative) 12/03/22 10:10 SARS-CoV-2, RNA, NAAT NEGATIVE (NEGATIVE) 11/29/22 11:43 Impressions Abdomen/Pelvis CT 11/29/22 13:[address] WITH IV CONTRAST CT DOSE: 459.22 mGy.cm HISTORY: Acute generalized abdominal pain with diarrhea. rectal mass, increased pain, diarrhea TECHNIQUE: Multiaxial CT images of the abdomen and pelvis were performed follow ing the IV administration of 94 cc of Optiray, A dose lowering technique was utilized adhering to the principles of ALARA. COMPARISON STUDY: 09/04/2021 FINDINGS: Partially imaged left gynecomastia. Lung bases are generally clear. No pneumatosis or pneumoperitoneum. The spleen is upper limits of normal in size. Ill-defined area of decreased attenuation extending to the subcapsular margin within the inferomedial spleen measures up to proximal 5 cm, best seen on the sagittal images. Unremarkable pancreas and adrenal glands. Distended gallbladder with cholelithiasis. There are a few hypodense foci noted within the hepatic dome measuring up to 1.1 cm, stable from prior. These are favored to be benign. Patency of the hepatic and portal veins. Cortical thinning of the kidneys without hydronephrosis. There are 2 nonobstructing calculi left kidney measuring up to 4 mm. There are a few subcentimeter hypodense foci of the bilateral kidneys are too small to characterize, likely cysts. Urinary bladder wall thickening with partial distention. Prostatomegaly. Atherosclerosis of the aorta. 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 Patent left common femoral arterial stent. 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 There is approximately 50% stenosis involving the distal portion of the left external iliac artery which is unchanged. 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 1.2 cm left inguinal chain lymph node. Heterogeneity of the testicles with hydroceles. Tiny hiatal hernia. Numerous fluid-filled loops of small bowel measure up to approximately 2.5 cm. There is a large invasive heterogeneously enhancing mass of the rectum extending to the anus measuring up to approximately 10 cm demonstrating transmural extension and with a small fistulous tract within the right ischioanal fossa. Numerous perirectal lymph nodes measure up to 8 mm. Possible extension of the mass into the posterior aspect of the prostate. Circumferential wall thickening of the sigmoid and rectosigmoid junction with mucosal uremia. There is an additional wall thickening noted throughout the ascending and transverse colon. Surgical clips in the abdominal right lower quadrant. Moderate abdominal pelvic ascites. Noninflamed appendix. Mild generalized body wall edema. Demineralized appearance of the bones. No acute fracture. IMPRESSION: 1. 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 2. No bowel obstruction or pneumoperitoneum. 3. Fluid-filled loops of small bowel may represent an ileus or enteritis. Low- grade obstruction considered less likely. 4. 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 5. Cholelithiasis with distended gallbladder. Findings could be correlated with ultrasound. 6. Moderate ascites. 7. Left nephrolithiasis. 8. Occlusion of the bilateral superficial femoral arteries. 9. Additional findings as above. ACT 112: Negative or not required by law. The above report was generated using voice recognition software. It may contain grammatical, syntax or spelling errors. Electronically signed by: Richard Kerns M.D. 11/29/2022 3:01 PM Duplex Scan Lower Extremity Artery 11/29/22 22:59 CR Exam(s): US ARTERIAL BILATERAL LOWER EXTREMITIES EXAM: US Duplex Bilateral Lower Extremities Arteries CLINICAL HISTORY: Reason for exam: no palpable pulses.. TECHNIQUE: Real-time duplex ultrasound scan of the bilateral lower extremity arteries integrating B-mode two-dimensional vascular structure, Doppler spectral analysis and color flow Doppler imaging. COMPARISON: 10/14/2020. FINDINGS: Right common femoral artery: Diffuse atherosclerotic disease. Decreased velocity with biphasic flow. Right superficial femoral artery: Diffuse atherosclerotic disease. Absent flow within the mid superficial femoral artery with monophasic low amplitude flow through the distal superficial femoral artery suggestive of reconstitution. Monophasic flow to the proximal superficial femoral artery. Right popliteal artery: Atherosclerotic disease. Monophasic low amplitude flow consistent with cephalad occlusion. Right calf/foot arteries: Monophasic flow through the trifurcation vessels consistent with cephalad of occlusion and reconstitution. There is flow within the right dorsalis pedis. Left common femoral artery: Diffuse atherosclerotic disease. Monophasic flow with decreased velocity. Left superficial femoral artery: Diffuse atherosclerotic disease. Absent flow within the proximal and middle superficial femoral artery consistent with occlusion. Reconstitution of the distal superficial femoral artery with monophasic flow. Left popliteal artery: No acute findings. Monophasic flow with decreased velocity through the popliteal artery consistent with distal reconstitution and cephalad occlusion of the mid proximal superficial femoral artery. Left calf/foot arteries: Diffuse atherosclerotic disease. Monophasic flow to the trifurcation vessels consistent with cephalad occlusion and reconstitution distally. The dorsalis pedis is not visualized which may indicate occlusion. The posterior tibial artery at the ankle is not visualized well with with possible occlusion. Soft tissues: Unremarkable. Exam is limited due to patient's inability to cooperate and move during the exam. IMPRESSION: Occlusion of the right distal superficial femoral artery with distal reconstitution. Occlusion of the left mid proximal superficial femoral artery with reconstitution of the distal superficial femoral artery. Flow through the trifurcation vessels bilaterally consistent with distal reconstitution. Flow within the right dorsalis pedis artery. No flow within the left dorsalis pedis which may indicate occlusion. Possible occlusion of the left distal posterior tibial artery. Communications: Call Doctor Other Electronically signed by: Monae Moy MD 11/30/22 03:28 AM Abdomen Ultrasound 11/30/22 17:02 ABDOMINAL ULTRASOUND, RIGHT UPPER QUADRANT HISTORY: Acute right upper quadrant abdominal pain r/o cholecystitis. COMPARISON: CT 11/29/2022. FINDINGS: Pancreas: The pancreas is mostly obscured by bowel gas. Liver: Suggestion mild marginal nodularity of the liver. No focal hepatic mass identified by ultrasound.. Moderate ascites. Gallbladder: Distended stone and sludge filled gallbladder. The gallbladder wall measures up to 3 mm. Possible 3 mm polyp of the gallbladder fundus. Sonographic Forte sign was unable to be assessed secondary to patient recently receiving pain medication. CBD: 0.5 cm. Right kidney: No hydronephrosis. Right pleural effusion incidentally noted. IMPRESSION: 1. Distended stone and sludge filled gallbladder with borderline wall thickening. The sonographic Forte's sign was unable to be assessed. Correlation with nuclear medicine hepatobiliary scan recommended in order to exclude acute cholecystitis. 2. No biliary ductal dilation. 3. Moderate ascites with right pleural effusion. ACT 112: Negative or not required by law. Electronically signed by: Richard Kerns M.D. 12/01/2022 7:57 AM KUB X-Ray 12/02/22 15:38 KUB HISTORY: vomiting COMPARISON: KUB 11/29/2022. FINDINGS: A left common iliac artery stent is again noted. Suture material seen within the right groin. A few borderline dilated gas-filled loops of large and small bowel seen throughout the abdomen. This favors a mild ileus. No evidence for a bowel obstruction at this time. No renal calculi. No ureteral calculi. No pneumoperitoneum or pneumatosis. IMPRESSION: A few borderline dilated gas-filled loops of large and small bowel seen throughout the abdomen. This favors an ileus. ACT 112: Negative or not required by law. Electronically signed by: Amari Robins M.D. 12/02/2022 4:23 PM Chest X-Ray 12/03/22 04:58 SINGLE VIEW CHEST CLINICAL HISTORY: Dyspnea FINDINGS: An AP, portable, upright chest radiograph is compared to study dated 12/02/2022. Correlation is made with chest CT dated 10/13/2020. The examination is degraded by portable technique and patient rotation. The cardiomediastinal silhouette is unremarkable. Bilateral airspace opacities persist. There are layering pleural effusions with dependent consolidation. No pneumothorax is seen. The skeletal structures are osteopenic. The bony thorax is grossly intact. IMPRESSION: 1. Bilateral airspace opacities persist. This could represent pulmonary edema and/or multifocal pneumonia. Clinical correlation will be required and radiographic follow-up to resolution is recommended. 2. Small layering pleural effusions. ACT 112: Negative or not required by law. Electronically signed by: Erick Euceda M.D. 12/03/2022 7:39 AM Abdomen/Pelvis CTA 12/03/22 09:20 CT ANGIOGRAM OF THE ABDOMEN AND PELVIS CLINICAL HISTORY: Generalized abdominal pain. COMPARISON STUDY: Abdominal CT dated 11/29/2022. TECHNIQUE: Following the IV administration of 118 cc of Optiray 320, CT angiogram of the abdomen and pelvis was performed from the lung bases the proximal femora. Images are reviewed in the axial, sagittal, and coronal planes. 3-D MIPS images are created and assessed. IV contrast was administered without complication. A dose lowering technique was utilized adhering to the principles of ALARA. CT DOSE: 540.16 mGy.cm FINDINGS: Lower chest: The heart is normal in size and without pericardial effusion. There are moderate pleural effusions with dependent consolidation. Airspace consolidation is seen throughout the aerated lower lungs. These findings are new from 11/29/2022. There is a small hiatal hernia. Gynecomastia is observed. Liver: The contrast-enhanced liver is normal in size and heterogeneous in attenuation. Nodularity of the surface contour suggests early morphologic changes of cirrhosis. There is no intrahepatic biliary ductal dilatation. Gallbladder: The gallbladder is markedly distended and contains layering shadowing gallstones. The gallbladder is not well evaluated due to surrounding ascites there Spleen: Normal in size and attenuation noting heterogeneous arterial phase enhancement. The splenic infarct suggested on 11/29/2022 is not well visualized. Pancreas: Moderately atrophic and grossly unremarkable. Adrenal glands: The adrenal glands appear hyperemic. Kidneys: The contrast enhanced kidneys demonstrate cortical atrophy and/or without hydronephrosis. The kidneys enhance symmetrically. There are at least 2 nonobstructing left renal calculi which measure up to 4 mm. Abdominal aorta and iliac arteries: There is moderate to advanced atherosclerotic calcification of the abdominal aorta which is normal in caliber. No dissection is seen. A stent within the left common iliac arteries patent. There is moderate to severe stenosis within the distal aspect of the stent seen on image #220. The right common iliac artery is widely patent. The external iliac arteries are patent bilaterally noting advanced atherosclerotic plaque and irregularity. There is moderate focal stenosis of the left external iliac artery seen on image #268. The internal iliac arteries are thrombosed proximally. There is complete thrombosis of the left superficial femoral artery which originates on image #338. There is focal high-grade stenosis with near complete occlusion of the proximal right superficial femoral artery seen on image #340. Major branches of the abdominal aorta: The celiac trunk, superior mesenteric, and inferior mesenteric arteries are patent. There is moderate stenosis of the proximal celiac artery, with ectasia of the celiac artery more distally which measures up to 10 mm diameter. There is a replaced right hepatic artery. The splenic artery is patent. There are 2 right renal arteries and a single left renal artery. The renal vessels are patent bilaterally. Bowel: Asymmetric right-sided rectal wall thickening is again noted. Mildly enlarged perirectal an presacral lymph nodes measure up to 8 mm. No bowel obstruction is seen. These are best seen on images #250, #264, #267, #284, and #294. There is mild wall thickening of the distal colon. Small bowel loops are normal in appearance. The appendix is no identified and reported surgically absent. Peritoneum: There is a moderate volume of abdominopelvic ascites. No intraperitoneal free air is identified. Lymphadenopathy: There is no upper abdominal, retroperitoneal, iliac chain, or inguinal lymphadenopathy. Pelvic viscera: The bladder is decompressed around a Mariano catheter and could not be assessed. The prostate and seminal vesicles are normal as imaged. Skeletal structures: No destructive bony lesions are seen. There are chronic/healed right posterior rib fractures. Soft tissues: There is body wall edema. IMPRESSION: 1. There are moderate bilateral pleural effusions with dependent consolidation. This is new from 11/29/2022. 2. There is patchy airspace consolidation throughout the aerated lung bases. This is also new from previous and could represent pulmonary edema and/or multifocal pneumonia. Clinical correlation will be required and radiographic follow-up to resolution is recommended. 3. Moderate volume of abdominopelvic ascites. This is unchanged to mildly increased from previous. 4. Anasarca of the body wall. 5. A large rectal mass is again noted with mildly enlarged perirectal and presacral lymph nodes. 6. Atherosclerosis of the abdominal vessels. The aorta is patent. 7. A left common iliac artery stent is patent. There is moderate to severe stenosis within the stent seen distally. 8. There is complete thrombosis of the proximal bilateral internal iliac arteries. 9. There is complete thrombosis of the proximal left superficial femoral artery. 10. There is a high-grade stenosis with near complete occlusion of the proximal right superficial femoral artery. 11. There is moderate focal stenosis of the left external iliac artery. 12. There is moderate stenosis of the proximal celiac artery. 13. Cholelithiasis within a markedly distended gallbladder. This is similar to previous. Correlate with clinical and laboratory findings for evidence of cholecystitis. 14. Heterogeneous liver with morphologic changes of cirrhosis. 15. Left-sided nephrolithiasis. 16. There is mild wall thickening of the rectosigmoid colon. Correlate clinically. 17. Additional findings as above. ACT 112: Negative or not required by law. Electronically signed by: Erick Euceda M.D. 12/03/2022 10:08 AM Medications Administered Current Inpatient Medications Albuterol (Albut/Ipratrop 3mg/0.5mg Neb 3 Ml Vial) 3 ml NEB Q4 PRN; Protocol PRN Reason: sob Stop: 01/01/23 15:33 Last Admin: 12/02/22 15:36 Dose: 3 ml Gabapentin (Gabapentin 600 Mg Tab) 600 mg PO TID KP Stop: 12/29/22 20:59 Last Admin: 12/03/22 09:47 Dose: Not Given Hydromorphone HCl (Hydromorphone Inj 1 Mg/Ml Syringe) 1 mg IV Q4H PRN PRN Reason: sev pain not controlled w oxy Stop: 12/13/22 19:09 Last Admin: 12/03/22 10:00 Dose: 1 mg Piperacillin Sod/Tazobactam (Sod 4.5 gm/ Dextrose) 120 mls @ 30 mls/hr IV Q8H KP; Protocol Stop: 12/09/22 17:29 Last Admin: 12/03/22 10:16 Dose: 30 mls/hr Pantoprazole Sodium 40 mg/ (Dextrose) 100 mls @ 20 mls/hr IV Q5H KP Stop: 01/01/23 15:44 Last Admin: 12/03/22 06:38 Dose: 8 mg/hr, 20 mls/hr Potassium Chloride (K Angelito / Wtr) 10 meq in 100 mls @ 100 mls/hr IV Q1H KP Stop: 12/03/22 11:14 Last Admin: 12/03/22 09:57 Dose: 100 mls/hr Albumin Human (Albumin 25%) 25 gm in 100 mls @ 50 mls/hr IV Q8H KP Stop: 12/06/22 08:29 Last Admin: 12/03/22 09:47 Dose: 50 mls/hr Melatonin (Melatonin 3 Mg Tab) 9 mg PO HS KP Stop: 12/29/22 22:29 Last Admin: 12/02/22 20:55 Dose: 9 mg Ondansetron HCl (Ondansetron Inj 2 Mg/Ml 2 Ml Vial) 4 mg IV Q4H PRN PRN Reason: Nausea Stop: 12/31/22 11:34 Last Admin: 12/02/22 15:23 Dose: 4 mg Oxycodone HCl (Oxycodone Hcl Ir 5 Mg Tab (Immediate Release)) 5 mg PO Q4H PRN PRN Reason: mod-sev pain Stop: 12/13/22 22:21 Last Admin: 12/01/22 08:24 Dose: 5 mg Coding Level of Care Code 84478 CRITICAL CARE 1ST 30-74M History Detailed Exam Detailed Diagnoses Carcinoma of rectum C20 Mass of anus K62.89 Sepsis with acute hypoxic respiratory failure A41.9; R65.20; J96.01 Time Spent (min) 35
--- NOTE | 2022-12-05 15:57 | Discharge Summary ---
Date of Service December 03, 2022 Admission HPI Per Admitting Provider This is a 57 y/o male with severe peripheral arterial disease, HIV disease, peripheral neuropathy, prior PE, migraines, and anal mass who presented to the ED today with worsening anal pain, dehydration, weakness, and diarrhea. Pt was originally seen in late 2021 for the anal bleeding and mass by Dr. Herring who referred him to colorectal surgery. Seen in Jun 2022 who recommended anorectal exam under anesthesia plus colonoscopy. On 09/06/22, pt underwent anorectal exam under anesthesia, excision of anal condylomata, and biopsy of anal mass. 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 CT on 09/07 09/28 showed heterogeneously enhancing rectal mass extending superiorly approximately 9 cm but non-obstructing, tiny prominent perirectal enlarged LN - highly suspicious for rectal malignancy with local mets. MRI on 10/27/22 showed anal mass extending into the low rectum with extension into the perianal and perirectal fat, overall size 9.7 cm cephalocaudal by 6.1 cm AP with suspected involvement of left seminal vesicle/prostate and posterior urethral margin. Saw CRS again on 11/04/22 who recommended repeat exam under anesthesia with biopsy as imaging findings most consistent with anal cancer, even with prior biopsy not showing this, and pt with ongoing symptoms of partial obstruction. Pt was scheduled for this procedure today. However, when his medical buggy man arrived to drive him to the procedure, he was too weak and in too much pain to be able to tolerate the trip to [place]. Pt has a history of unprovoked VTE and severe PAD so hematology has recommended indefinite anticoagulation with Eliquis 5 mg BID - pt has been holding this for the last couple of days for the biopsy today. Pt follows with Dr. Au for HIV - most recently has been on Biktarvy 50-200-25 daily, last visit in fall 2021. Down at least 40 lbs from baseline weight of 160 lbs. Not eating for the last week as eating makes diarrhea and incontinence worse. Anal pain waxes and wanes - pt is out of pain medications at present. Not sleeping due to severity of pain. Ongoing issues with rectal bleeding - also waxes and wanes. Progressive weakness and fatigue - fell at home yesterday in the bathroom and struggled to get back up. Lives alone with very limited support system. Principal Diagnosis Anal Rectal Mass Acute hypoxic respiratory failure Severe sepsis with shock Arterial thrombus Severe protein malnutrition Metabolic acidosis Moderate pericardial effusion Discharge Exam Please see my note from earlier today for physical exam Discharge Data Allergies Allergy/AdvReac Type Severity Reaction Status Date / Time Sulfa (Sulfonamide Allergy Severe Severe Verified 10/13/20 18:33 Antibiotics) hives ciprofloxacin Allergy Intermediate Hives Verified 10/13/20 18:33 Consultations 11/29/22 16:19 ED Decision to Admit Stat 11/29/22 18:46 Consult Palliative Care Routine 12/01/22 10:07 Consult Gastroenterology Routine Consult General Surgery Routine 12/03/22 10:19 Burn CD for patient Stat 12/03/22 11:21 Consult Resource Center Teacher Stat Procedures Performed Operation Date: 12/02/22 16:30 Actual Procedures p Colonoscopy Biopsy Cytology(Not Applicable) - Debbie Navas, Ordered Studies 11/29/22 13:43 CT Abd and Pelvis [CT abd pelvis IV con only] Stat 11/29/22 22:59 US arterial duplex LE BI Stat 11/30/22 17:02 US abdomen limited Routine 12/03/22 09:20 CT angio abdomen pelvis w con Stat Hospital Course (1) Mass of anus: (2) Hyponatremia: (3) Dehydration: (4) Malnutrition: (5) Human immunodeficiency virus (HIV) disease: (6) Peripheral arterial disease: (7) Idiopathic peripheral neuropathy: (8) History of pulmonary embolism: (9) Epigastric pain: Plan Mr Maik Palencia is a 57 year old male with severe peripheral arterial disease, HIV disease on HAART, peripheral neuropathy, prior PE, migraines, and anal mass who presented to the ED today with worsening anal pain, dehydration, weakness, and diarrhea. Pt was originally seen in late 2021 for the anal bleeding and mass by Dr. Herring who referred him to colorectal surgery. Seen in Jun 2022 who recommended anorectal exam under anesthesia plus colonoscopy. On 09/06/22, pt underwent anorectal exam under anesthesia, excision of anal condylomata, and biopsy of anal mass. 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 CT on 09/30/22 showed heterogeneously enhancing rectal mass extending superiorly approximately 9 cm but non-obstructing, tiny prominent perirectal enlarged LN - highly suspicious for rectal malignancy with local mets. MRI on 10/27/22 showed anal mass extending into the low rectum with extension into the perianal and perirectal fat, overall size 9.7 cm cephalocaudal by 6.1 cm AP with suspected involvement of left seminal vesicle/prostate and posterior urethral margin. Patient saw CRS again on 11/04/22 who recommended repeat exam under anesthesia with biopsy as imaging findings concerning for anal cancer, even with prior biopsy not showing this, and pt with ongoing symptoms of partial obstruction. Pt was scheduled for this procedure 11/29/22. However, when his medical buggy man arrived to drive him to the procedure, he was too weak and in too much pain to tolerate the trip to [place] so instead he was taken to [facility] ER. Here, he had a repeat CT A/P which again shows a large rectal mas with ileus bowel pattern. Case was discussed by ER with general surgery here and it was recommended that he be transferred to [facility]. ER provider discussed the case with CRS and hospitalist at [facility] and it was felt patient can be managed here so he was admitted to PCU for further care. He was seen by general surgery here and gastroenterology and underwent a colonoscopy 12/02 which revealed a large, near obstructing rectal mass with difficulty of scope to be advanced. Biopsies were taken and were pending at the time of discharged but later came back as "Ulcer with fibropurulent exudate". He continued to have fecal incontinence and abdominal discomfort here and there was concern that he would need a diverting colostomy so case was discussed with CRS at [facility] again and he was accepted for transfer. Initial plan for him to be on [facility] primary service on med/surg. However, while awaiting transfer, he became hemodynamically unstable. After his colonoscopy, he felt nauseous and had worsening epigastric abdominal pain. He had several episodes of coffee ground emesis then complained of shortness of breath. He was started on a protonix drip. On exam he appeared volume overloaded with 3+ edema bilateral lower extremities and scrotal edema. CXR obtained 12/02 suggests volume overload so he received lasix 20mg IV once with improvement in symptoms and later that night again complained of shortness of breath. Repeat CXR again suggests volume overload so he received another lasix 30mg IV and he was placed on BIPAP. He subsequently became hypotensive. A TTE obtained later showed moderate pericardial effusion. He had rising lactate, WBC and hypotension with concern for septic shock. He was then resuscitated with albumin and LR, he remained on zosyn. [facility] was contacted and case was discussed with chart snatcher there and he was accepted for transfer. While awaiting transfer to [facility] ICU, he was transferred to the ICU here for further stabilization. A bed was available shortly later and he was transported via life flight. 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 Call non-emergency contact if: you have any medication questions Follow-up/Referrals: Leta Schaeffer MD [Primary Care Provider] - Diet: Nothing by Mouth Addtl Attending Provider Instructions: Patient transferred to [facility] Emergently Pending Studies at Discharge: No Stand-Alone Forms: [facility] Skilled Items Patient informed of condition?: Yes DNR: No Discharge Level of Care: Other Communicable Disease: No Discharge Prognosis: Deteriorating Lines: Peripheral IV Urinary Catheter: Yes Medications and DC Order Prescriptions: No Action gabapentin 600 mg tablet 600 mg PO TID B12 1 - 2 gummy PO DAILY Biktarvy See Rx Instructions .ROUTE .COMPLEX Rx Instructions: pt didn't give dose atorvastatin 40 mg tablet 40 mg PO HS clopidogrel 75 mg tablet 75 mg PO DAILY Eliquis 5 mg tablet 5 mg PO BID Admission Data Admit Date/Time: 11/29/22 16:27 Attending Provider: Wenceslao Lehman Admit Provider: Artemio Vivas Primary Care Provider: Leta Schaeffer Other Providers: Artemio Vivas ; Myrtle Orozco ; Farnaz Elizalde ; Damon Hay ; Chris Nagel ; Telma Brownlee Jr ; Magali Herring ; Luna Gordon Other Interventions: Discharge Summary Assessment (RN) Last Done: 12/03/22 11:32
== END 2022-12-03 11:34 | disposition short-term general hospital (02) | DRG 393 ==
LOC: ED 10:17 → 4W 16:27 → SUATTDRO 16:27 → 4W 17:27 → 1E 12-03 09:48